=== PATIENT | female | born 1960 | race Caucasian/White ===

== ENCOUNTER → 2016-05-13 | Outpatient (CLI) | payer BC ==
[~2016-05-13] MED LIST: ADVIN25/60 INH; ALBUAER19 INH; ASPI81TA21 PO; CONJ0.3T3 PO; ESOM20CA PO; FISHOIL PO; LEVO150T PO; MINO100T; MULTTAB58 PO; SENNTAB23 PO; TRAM-10 PO
--- NOTE | 2016-05-13 16:10 | DIAGNOSTIC IMAGING REPORT ---
TWO VIEW CHEST CLINICAL HISTORY: Cough. FINDINGS: PA and lateral chest radiographs are compared to study dated 01/16/2015 and correlated with chest CT dated 09/24/2012. The heart is top normal in size. The mediastinal contour is within normal limits. Chronic interstitial thickening is unchanged. Minimal left basilar atelectasis is observed. No airspace consolidation or pleural effusion is seen. There is no pneumothorax. The skeletal structures are osteopenic. Mild degenerative change is noted throughout the thoracic spine. IMPRESSION: No active disease in the chest. Electronically signed by: Corey Washington M.D. 05/13/2016 4:09 PM Dictated Date/Time: 05/13/2016 4:08 PM
== END | disposition home or self-care (01) ==
LOC: C.RAD1850 15:41
PROVIDERS: ATTEND Internal Medicine Infectious Disease
DX: R05 Cough (principal)

== ENCOUNTER → 2016-06-27 | Outpatient (CLI) | payer BC ==
--- NOTE | 2016-06-27 15:44 | DIAGNOSTIC IMAGING REPORT ---
CHEST 2 VIEWS ROUTINE CLINICAL HISTORY: ASTHMA dyspnea COMPARISON STUDY: 05/13/2016 FINDINGS: Lungs are clear. Diaphragms smooth. Costophrenic angles are sharp. IMPRESSION: Negative chest. Electronically signed by: Devante Kimble M.D. 06/27/2016 3:42 PM Dictated Date/Time: 06/27/2016 3:42 PM
== END | disposition home or self-care (01) ==
LOC: C.RAD1850 15:25
PROVIDERS: ATTEND Physician Assistant Medical
DX: J45.909 Unspecified asthma, uncomplicated (principal)

== ENCOUNTER → 2016-10-24 | Outpatient (CLI) | payer BC ==
--- NOTE | 2016-10-25 14:37 | MAMMOGRAPHY REPORT ---
BILATERAL DIGITAL SCREENING MAMMOGRAM TOMOSYNTHESIS WITH CAD: 10/24/2016 CLINICAL HISTORY: Routine screening. TECHNIQUE: Breast tomosynthesis in addition to standard 2D mammography was performed. Current study was also evaluated with a Computer Aided Detection (CAD) system. COMPARISON: Comparison is made to exams dated: 10/20/2015 mammogram, 10/17/2014 mammogram, 10/02/2014 tanya mogram, 09/27/2013 mammogram, 09/25/2012 mammogram, and 09/19/2011 mammogram - [facility] er. BREAST COMPOSITION: There are scattered areas of fibroglandular density in both breasts. FINDINGS: A linear scar marker overlies the anterior right breast. There is stable asymmetry in the subareolar left breast. No new suspicious mass, architectural distortion or cluster of microcalcific ations is seen. IMPRESSION: ACR BI-RADS CATEGORY 1: NEGATIVE There is no mammographic evidence of malignancy. A 1 year screening mammogram is recommended. The pa tient will receive written notification of the results. Approximately 10% of breast cancers are not detected with mammography. A negative mammographic report should not delay biopsy if a clinically suggestive mass is present. Marquita Masterson M.D. ay/:10/24/2016 16:44:09 [employer] Devil: Cole DE LEON(R)(M), [facility] letter sent: Normal 1/2 BI-RADS Code: ACR BI-RADS Category 1: Negative
== END | disposition home or self-care (01) ==
LOC: C.MAMM 07:20
PROVIDERS: ATTEND Obstetrics & Gynecology
DX: Z12.31 Encounter for screening mammogram for malignant neoplasm of breast (principal)

== ENCOUNTER → 2016-12-05 | Outpatient (CLI) | payer BC ==
--- NOTE | 2016-12-05 09:32 | DIAGNOSTIC IMAGING REPORT ---
(RENAL)RETROPERITON COMP HISTORY: 55 years-old Female BILATERAL CYST, R SIDED MASS follow-up study to assess bilateral renal cysts. COMPARISON: Renal ultrasound 10/07/2014 TECHNIQUE: Multiple real-time sonographic images of the bilateral kidneys were obtained assessing grayscale appearance and color flow. FINDINGS: Right kidney measures 11.9 x 5.7 x 5.5 cm. Cyst of the inferior pole right kidney is seen, 2.9 x 2.4 x 2.0 cm, previously 2.7 x 2.5 cm. No definite renal calculi or hydronephrosis identified. Cortical medullary differentiation is preserved. No definite suspicious right-sided renal mass identified. The left kidney measures 12.3 x 5.0 x 4.5 cm. Cystic structure measuring up to 3.4 x 1.6 cm within the lower pole left kidney suggests a parenchymal cyst or renal sinus cyst, unchanged from comparison. No left-sided calculus or hydronephrosis identified. Bilateral ureteral jets are documented. Urinary bladder is unremarkable. IMPRESSION: 1. Stable exam from comparison study dated 10/07/2014 with 2.9 cm simple cyst of the inferior pole right kidney and probable renal sinus cyst of the left kidney. 2. No definite renal calculi or hydronephrosis. The above report was generated using voice recognition software. It may contain grammatical, syntax or spelling errors. Electronically signed by: Tobi Willard M.D. 12/05/2016 9:30 AM Dictated Date/Time: 12/05/2016 9:26 AM
== END | disposition home or self-care (01) ==
LOC: C.ULTR 08:41
PROVIDERS: ATTEND Family Medicine
DX: N28.1 Cyst of kidney, acquired (principal)

== ENCOUNTER → 2017-04-20 | Outpatient (CLI) | payer BC, OTHER | END | disposition home or self-care (01) | LOC: C.RDSM 08:00 | PROVIDERS: ATTEND Orthopaedic Surgery | DX: M25.512 Pain in left shoulder (principal); Z88.6 Allergy status to analgesic agent; Z91.048 Other nonmedicinal substance allergy status ==

== ENCOUNTER → 2017-10-24 | Outpatient (CLI) | payer OTHER ==
[~2017-10-24] MED LIST changes: +ASPI-319 PO; -ASPI81TA21 PO
--- NOTE | 2017-10-24 13:43 | DIAGNOSTIC IMAGING REPORT ---
(VÍCTOR/BLAD)RETROPERITON COMP CLINICAL HISTORY: 56 years-old Female presenting with RENAL CYST. TECHNIQUE: Real-time grayscale and limited color Doppler ultrasound imaging of the kidneys and bladder was performed. COMPARISON: 12/05/[address] from 03/28/2012. FINDINGS: Right kidney: Normal echogenicity of renal parenchyma. Right kidney measures 12.0 cm. No hydronephrosis. Lower pole 2.9 cm simple cyst as seen on prior CT from 2012. Left kidney: Normal echogenicity of renal parenchyma. Left kidney measures 12.7 cm. No hydronephrosis. Parapelvic 3.6 cm simple cyst as seen on prior CT from 2012. Bladder: Normal. Bilateral ureteral jets present. Other: Hyperechogenicity of hepatic parenchyma suggests hepatic steatosis.. IMPRESSION: 1. Stable renal ultrasound with benign simple cysts. No obstruction. 2. Suspected hepatic steatosis. Electronically signed by: Sreekanth Chance M.D. 10/24/2017 1:42 PM Dictated Date/Time: 10/24/2017 1:39 PM
== END | disposition home or self-care (01) ==
LOC: C.ULTR 12:38
PROVIDERS: ATTEND Family Medicine
DX: N28.1 Cyst of kidney, acquired (principal)

== ENCOUNTER → 2017-10-30 | Outpatient (CLI) | payer OTHER ==
--- NOTE | 2017-10-31 06:59 | MAMMOGRAPHY REPORT ---
BILATERAL DIGITAL SCREENING MAMMOGRAM TOMOSYNTHESIS WITH CAD: 10/30/2017 CLINICAL HISTORY: Routine screening. TECHNIQUE: The study was acquired using full field digital technology and interpreted from soft copy. Breast tomosynthesis in addition to standard 2D mammography was performed. Current study was also ev aluated with a Computer Aided Detection (CAD) system. COMPARISON: Comparison is made to exams dated: 10/24/2016 mammogram, 10/20/2015 mammogram, 10/02/2014 ma mmogram, 09/27/2013 mammogram, 09/25/2012 mammogram, and 09/19/2011 mammogram - [facility]. BREAST COMPOSITION: There are scattered areas of fibroglandular density in both breasts. FINDINGS: The parenchymal pattern is unchanged. No developing mass, architectural distortion or cluster of susp icious microcalcifications is seen in either breast. IMPRESSION: ACR BI-RADS CATEGORY 2: BENIGN There is no mammographic evidence of malignancy. A 1 year screening mammogram is recommended.( [id number]) The patient will receive written notification of the results. Some breast cancers are not detected with mammography. A negative mammographic report should not marta y biopsy if a clinically suggestive mass is present. Marquita Masterson M.D. ay/:10/30/2017 08:09:48 Support Engineer: RT Guero(Sam)(M), [facility] letter sent: Normal 1/2 BI-RADS Code: ACR BI-RADS Category 2: Benign
== END | disposition home or self-care (01) ==
LOC: C.MAMM 07:20
PROVIDERS: ATTEND Obstetrics & Gynecology
DX: Z12.31 Encounter for screening mammogram for malignant neoplasm of breast (principal)

== ENCOUNTER 2019-02-02 17:34 | Inpatient (IN) ==
[~2019-02-02 17:34] MED LIST changes: -ADVIN25/60 INH; -ALBUAER19 INH; -ASPI-319 PO; +AZITHROMYCIN 500 MG in DEXTROSE 5% 250 ML IV ONE; -CONJ0.3T3 PO; -ESOM20CA PO; -FISHOIL PO; -LEVO150T PO; -MINO100T; -MULTTAB58 PO; -SENNTAB23 PO; -TRAM-10 PO
[2019-02-02] MEDS ORDERED: ACETAMINOPHEN 1,000 MG/100 ML VIAL IV STA (18:08)
[2019-02-02] MEDS ORDERED: LEVALBUTEROL HCL 1.25 MG/3 ML NEB NEB STA ×3 (18:08→19:36)
[2019-02-02] MEDS ORDERED: SODIUM CHLORIDE 0.9% 500 ML IV ONE (18:11)
[2019-02-02 18:20] LABS: Basophils # (auto) 0.02 K/uL (0-0.2); Basophils % (auto) 0.1 %; Eosinophils # (auto) 0.01 K/uL (0-0.5); Eosinophils % (auto) 0.1 %; Hematocrit (blood only) 43.3 % (37-47); Immature Granulocytes # (auto) 0.04 K/uL (0.00-0.02); Immature Granulocytes % (auto) 0.3 %; Lymphocytes # (auto) 1.45 K/uL (1.2-3.4); Lymphocytes % (auto) 10.9 %; Mean Corpuscular Hemoglobin 28.1 pg (25-34); Mean Corpuscular Hgb Conc 32.3 g/dL (32-36); Mean Corpuscular Volume 86.9 fL (80-100); Mean Platelet Volume 10.1 fL (7.4-10.4); Monocytes # (auto) 1.09 K/uL (0.11-0.59); Monocytes % (auto) 8.2 %; Neutrophils # (auto) 10.74 K/uL (1.4-6.5); Neutrophils % (auto) 80.4 %; Platelet Count 239 K/uL (130-400); RDW Coefficient of Variation 14.6 % (11.5-14.5); RDW Standard Deviation 46.3 fL (36.4-46.3); Red Blood Count 4.98 M/uL (4.2-5.4); White Blood Count 13.35 K/uL (4.8-10.8)
--- NOTE | 2019-02-02 18:30 | XRay Report ---
SINGLE VIEW CHEST CLINICAL HISTORY: Sepsis. FINDINGS: An AP, portable, upright chest radiograph is compared to study dated 06/27/2016 and correlat ed with chest CT dated 01/11/2018. The examination is degraded by portable technique and patient rotat ion. The heart is top normal for projection. The mediastinal contour is within normal limits. There i s mild bibasilar atelectasis. No airspace consolidation or large pleural effusion is identified. No p neumothorax is seen. The skeletal structures are osteopenic. The bony thorax is grossly intact. IMPRESSION: No active disease in the chest. Electronically signed by: Corey Washington M.D. 02/02/2019 6:28 PM
[2019-02-02 18:31] LABS: INR 1.2 (0.9-1.1); Partial Thromboplastin Ratio 1.2; Prothrombin Time 11.8 Seconds (9.0-12.0)
[2019-02-02 18:37] LABS: Alanine Aminotransferase 25 U/L (12-78); Albumin Level 3.4 gm/dl (3.4-5.0); Aspartate Aminotransferase 14 U/L (15-37); BUN Creatinine Ratio 12.4 (10-20); Blood Urea Nitrogen 8 mg/dl (7-18); Calcium 8.9 mg/dl (8.5-10.1); Carbon Dioxide 26 mmol/L (21-32); Chloride 103 mmol/L (98-107); Creatinine Clr Calc Pharmacy 108.1 ml/min; Est GFR (African American) 110.7; Est GFR (Non-African American) 95.5; Glucose 102 mg/dl (70-99); Potassium 3.6 mmol/L (3.5-5.1); Sodium 135 mmol/L (136-145)
[2019-02-02 18:42] LABS: Albumin Globulin Ratio 0.8 (0.9-2); Alkaline Phosphatase 107 U/L (45-117); Creatine Kinase 44 U/L (26-192); Creatine Kinase MB < 1.0 ng/ml (0.5-3.6); Globulin 4.5 gm/dl (2.5-4.0); Total Protein 7.9 gm/dl (6.4-8.2); Troponin I < 0.015 ng/ml (0-0.045)
--- NOTE | 2019-02-02 19:11 | Emergency Department Note ---
Entered by Diamond Bourgeois acting as a scribe for Carlton Gee MD History of Present Illness General Chief complaint: Illness Stated complaint: ASTHMA, COUGH, NAUSEA, FEVER, HEAD AND NECK PAIN Time Seen by Provider: 02/02/19 17:52 Source: patient Limitations: no limitations History of Present Illness Onset (ago): week(s) 3 Location: head Pain Consistency: + other (persistent) Maximum Pain Intensity: 5 Quality: + other (worsening) Associated symptoms: + chest pain, + cough, + fever/chills and + headaches Treatments prior to arrival: none The patient is a 58 year old female who presents to the Emergency Room with complaints of a persistent illness that began 3 weeks ago. She reports that she had an asthma exacerbation 3 weeks ago, and she has had a persistent cough since then. The patient notes that she used a nebulizer, and it provided some relief. She complains of a persistent sore throat and a fever that began yesterday. The patient notes that she had nausea and a near-syncopal episode yesterday afternoon, stating that these symptoms are now resolved. She complains of a headache and neck pain that began a few days ago, noting that the neck pain has worsened. The patient complains of chest pain. She denies any abdominal pain. The patient denies any treatments [employer]. She notes a history of A-fib, and she states that she takes a low dose Aspirin daily. Home Medications Home Medications Medication Instructions Recorded Confirmed Type omega [id number] oil [Fish Oil] 1 cap PO DAILY 02/22/18 02/02/19 History albuterol sulfate 2.5 mg/3 mL 0 mg INHALATION DIRECTED #1 ml 12/14/18 02/02/19 History (0.083 %) solution for nebulization cholecalciferol (vitamin D3) 2,000 2,000 unit PO DAILY tab 12/14/18 02/02/19 History unit tablet clobetasol 0.05 % topical cream 1 applic TOPICAL DIRECTED #3 gm 12/14/18 02/02/19 History docusate sodium 100 mg capsule 100 mg PO DAILY PRN cap 12/14/18 02/02/19 History levothyroxine 175 mcg tablet 175 mcg PO DAILY tab 12/14/18 02/02/19 History omeprazole magnesium 20 mg 40 mg PO BID tab 12/19/18 02/02/19 History tablet,delayed release albuterol sulfate 90 mcg/actuation 2 puff INHALATION Q4H PRN #54 gm 12/24/18 02/02/19 Rx aerosol inhaler aspirin [Aspirin Low Dose] 162 mg PO DAILY 02/02/19 02/02/19 History Allergies Allergy/AdvReac Type Severity Reaction Status Date / Time codeine Allergy Mild SEVERE Verified 02/02/19 18:12 STOMACH PAIN, COLD AND CLAMMY. adhesive Allergy Unknown rash Verified 02/02/19 18:12 chlorhexidine AdvReac Intermediate ITCHING Verified 02/02/19 18:12 AND BURNING AT SITE OF USE aspirin AdvReac Mild too much Verified 02/02/19 18:12 aspirin causes stomach bleed NSAIDS (Non-Steroidal AdvReac Unknown gastric Verified 02/02/19 18:12 Anti-Inflamma bleeding Past Med/Surg History Medical History (Updated 02/05/19 @ 00:37 by Carlton Gee MD) Afib (Acute) Asthma (Acute) Endometriosis Enlarged thoracic aorta (Acute) GERD (gastroesophageal reflux disease) Hypothyroid (Acute) IBS (irritable bowel syndrome) (Acute) Lichen planus Lichen sclerosus Rosacea conjunctivitis Vertigo Surgical History History of breast biopsy (Acute) History of cholecystectomy (Acute) History of foot surgery (Acute) History of hysterectomy (Acute) History of laparoscopy (Acute) Family History Grandfather (Maternal) Colorectal cancer Sister Colorectal cancer Social History Preferred Language: Algerian Communication Ability: Effective Custom Designer Required: No Beliefs That Will Affect Care: None Current Living Situation: Spouse Feels Safe at Home: Yes Smoking Status: Never smoker Second Hand Exposure: No ; Hx Alcohol Use: No Hx Substance Use: No Review of Systems See HPI for pertinent positives & negatives. and A total of 10 systems reviewed and were otherwise negative Physical Exam Vital Signs Vital Signs - 24 hr 02/02/19 17:36 02/02/19 18:29 02/02/19 18:41 Temperature 37.7 C H Temperature Source Oral Pulse Rate 114 H Pulse Rate [Right Finger] 78 Respiratory Rate 20 20 Respiratory Effort / Characteristics Spontaneous Grunting Moaning Splinting (from pain) Blood Pressure 122/82 Blood Pressure [Right Arm] Blood Pressure Mean 95 Blood Pressure Mean [Right Arm] Pulse Oximetry 93 88 L 95 Oxygen Delivery Method Room Air Room Air Nasal Cannula Oxygen Flow Rate 2 Sepsis Recent Fever Within 48 Hours No Sepsis New/Unexplained Change in Mental Status No Sepsis Action Taken by Nursing No Action Required 02/02/19 19:20 02/02/19 19:40 Temperature Temperature Source Pulse Rate Pulse Rate [Right Finger] 93 H 89 Respiratory Rate 21 18 Respiratory Effort / Characteristics Non-Labored Spontaneous Blood Pressure Blood Pressure [Right Arm] 139/97 Blood Pressure Mean Blood Pressure Mean [Right Arm] 111 Pulse Oximetry 91 95 Oxygen Delivery Method Room Air Nasal Cannula Oxygen Flow Rate 2 Sepsis Recent Fever Within 48 Hours Sepsis New/Unexplained Change in Mental Status Sepsis Action Taken by Nursing GENERAL: Awake, alert, well-appearing, in no acute distress HENT: Normocephalic, atraumatic. Oropharynx unremarkable. No evidence of encephalitis or meningitis. EYES: Normal conjunctiva. Sclera non-icteric. NECK: Supple. No nuchal rigidity. FROM. No JVD. RESPIRATORY: Wheezing bilaterally. CARDIAC: Regular rate, normal rhythm. Extremities warm and well perfused. Pulses equal. ABDOMEN: Soft, non-distended. No tenderness to palpation. No rebound or guarding. No masses. RECTAL: Deferred. MUSCULOSKELETAL: Chest examination reveals no tenderness. The back is symmetrical on inspection without obvious abnormality. There is no CVA tenderness to palpation. No joint edema. LOWER EXTREMITIES: Calves are equal size bilaterally and non-tender. No edema. No discoloration. NEURO: Normal sensorium. No sensory or motor deficits noted. SKIN: No rash or jaundice noted. Course Course 1802: The patient was evaluated in room A04. A complete history and physical exam was performed. 1934: I reevaluated the patient. Administered Medications Acetaminophen (Tylenol) 650 mg PO Q4H PRN PRN Reason: pain/fever Stop: 03/04/19 23:45 Last Admin: 02/04/19 15:53 Dose: 650 mg Documented by: [id number] Admin: 02/03/19 08:55 Dose: 650 mg Documented by: [id number] Albuterol (Duoneb) 3 ml NEB QIDR [place] Stop: 03/06/19 20:59 Last Admin: 02/04/19 21:16 Dose: Not Given Documented by: [id number] Aspirin (Ecotrin Ectab) 162 mg PO DAILY [place] Stop: 03/05/19 08:59 Last Admin: 02/03/19 19:57 Dose: 162 mg Documented by: [id number] Admin: 02/03/19 08:48 Dose: 162 mg Documented by: [id number] Benzonatate (Tessalon Perle) 100 mg PO TID [place] Stop: 03/05/19 08:59 Last Admin: 02/04/19 20:54 Dose: 100 mg Documented by: [id number] Admin: 02/04/19 15:10 Dose: 100 mg Documented by: [id number] Admin: 02/04/19 08:29 Dose: 100 mg Documented by: [id number] Admin: 02/03/19 19:58 Dose: 100 mg Documented by: [id number] Admin: 02/03/19 14:19 Dose: 100 mg Documented by: [id number] Admin: 02/03/19 08:46 Dose: 100 mg Documented by: [id number] Docusate Sodium (Colace) 100 mg PO HS [place] Stop: 03/06/19 20:59 Last Admin: 02/04/19 20:54 Dose: 100 mg Documented by: [id number] Enoxaparin Sodium (Lovenox) 40 mg SQ Q24H [place] Stop: 03/04/19 23:45 Last Admin: 02/04/19 23:42 Dose: 40 mg Documented by: [id number] Admin: 02/03/19 19:58 Dose: 40 mg Documented by: [id number] Admin: 02/03/19 00:48 Dose: 40 mg Documented by: [id number] Miscellaneous (Order Awaiting Action) 1 ea N/A QS [place] Stop: 03/05/19 07:59 Last Admin: 02/04/19 23:24 Dose: Not Given Documented by: [id number] Admin: 02/04/19 16:07 Dose: Not Given Documented by: [id number] Admin: 02/04/19 08:30 Dose: Not Given Documented by: [id number] Admin: 02/04/19 01:11 Dose: Not Given Documented by: [id number] Admin: 02/03/19 16:40 Dose: Not Given Documented by: [id number] Admin: 02/03/19 08:48 Dose: Not Given Documented by: [id number] Pantoprazole Sodium (Protonix) 40 mg PO BID [place] Stop: 03/05/19 08:59 Last Admin: 02/04/19 20:54 Dose: 40 mg Documented by: [id number] Admin: 02/04/19 08:30 Dose: 40 mg Documented by: [id number] Admin: 02/03/19 19:58 Dose: 40 mg Documented by: [id number] Admin: 02/03/19 08:46 Dose: 40 mg Documented by: [id number] Prednisone (Prednisone) 40 mg PO QAM [place] Stop: 03/06/19 08:59 Last Admin: 02/04/19 08:32 Dose: 40 mg Documented by: [id number] Fluticasone/Salmeterol (Advair Diskus 250/50) 1 puffs INH BID [place] Stop: 03/05/19 08:59 Last Admin: 02/04/19 20:54 Dose: 1 puffs Documented by: [id number] Admin: 02/04/19 08:28 Dose: 1 puffs Documented by: [id number] Admin: 02/03/19 19:58 Dose: 1 puffs Documented by: [id number] Admin: 02/03/19 08:48 Dose: 1 puffs Documented by: [id number] Discontinued Medications Al Hydrox/Mg Hydrox/Simethicone () 1 dose PO ONE ONE Stop: 02/02/19 21:21 Last Admin: 02/02/19 21:28 Dose: 1 dose Documented by: [id number] Albuterol (Duoneb) 3 ml NEB Q6R [place] Stop: 03/05/19 00:59 Last Admin: 02/04/19 19:24 Dose: 3 ml Documented by: [id number] Admin: 02/04/19 13:49 Dose: 3 ml Documented by: [id number] Admin: 02/04/19 07:32 Dose: 3 ml Documented by: [id number] Admin: 02/04/19 01:32 Dose: Not Given Documented by: [id number] Admin: 02/03/19 19:08 Dose: 3 ml Documented by: [id number] Admin: 02/03/19 13:14 Dose: Not Given Documented by: [id number] Admin: 02/03/19 07:12 Dose: 3 ml Documented by: [id number] Admin: 02/03/19 00:51 Dose: 3 ml Documented by: [id number] Diphenhydramine HCl (Benadryl) 25 mg IV NOW STA Stop: 02/04/19 01:37 Last Admin: 02/04/19 01:48 Dose: 25 mg Documented by: [id number] Famotidine (Pepcid) 20 mg PO NOW ONE Stop: 02/02/19 21:21 Last Admin: 02/02/19 21:28 Dose: 20 mg Documented by: [id number] Acetaminophen (Ofirmev) 1,000 mg in 100 mls @ 400 mls/hr IV NOW STA Stop: 02/02/19 18:22 Last Infusion: 02/02/19 18:46 Dose: 0 mls/hr Documented by: [id number] Admin: 02/02/19 18:20 Dose: 400 mls/hr Documented by: [id number] Sodium Chloride (Nss) 500 mls @ 999 mls/hr IV .Q31M ONE Stop: 02/02/19 18:41 Last Infusion: 02/02/19 19:11 Dose: 0 mls/hr Documented by: [id number] Admin: 02/02/19 18:20 Dose: 999 mls/hr Documented by: [id number] Piperacillin Sod/Tazobactam Sod (Zosyn) 4.5 gm in 120 mls @ 240 mls/hr IV NOW ONE Stop: 02/02/19 20:34 Last Infusion: 02/02/19 21:13 Dose: 0 mls/hr Documented by: [id number] Admin: 02/02/19 20:39 Dose: 240 mls/hr Documented by: [id number] Magnesium Sulfate/Dextrose (Magnesium Sulfate / D5w) 1 gm in 100 mls @ 100 mls/hr IV ONE ONE Stop: 02/02/19 21:50 Last Infusion: 02/02/19 22:13 Dose: 0 mls/hr Documented by: [id number] Admin: 02/02/19 21:13 Dose: 100 mls/hr Documented by: [id number] Azithromycin 500 mg/ Dextrose 255 mls @ 125 mls/hr IV ONE ONE Stop: 02/02/19 02:17 Last Infusion: 02/03/19 03:35 Dose: 0 mls/hr Documented by: [id number] Admin: 02/03/19 00:48 Dose: 125 mls/hr Documented by: [id number] Ceftriaxone Sodium 2,000 mg/ (Dextrose) 70 mls @ 100 mls/hr IV Q24H [place]; Protocol Stop: 02/10/19 03:59 Last Infusion: 02/04/19 04:59 Dose: 0 mls/hr Documented by: [id number] Admin: 02/04/19 03:30 Dose: 100 mls/hr Documented by: [id number] Infusion: 02/03/19 05:09 Dose: 0 mls/hr Documented by: [id number] Admin: 02/03/19 03:59 Dose: 100 mls/hr Documented by: [id number] Azithromycin 250 mg/ Dextrose 252.5 mls @ 125 mls/hr IV Q24H [facility] Stop: 02/11/19 00:00 Last Infusion: 02/04/19 03:45 Dose: 0 mls/hr Documented by: [id number] Admin: 02/04/19 01:09 Dose: 125 mls/hr Documented by: [id number] Methylprednisolone 40 mg/ (Syringe) 0.64 mls @ 1.5 mls/min IV Q8H [facility] Stop: 03/05/19 03:59 Last Admin: 02/04/19 03:17 Dose: Not Given Documented by: [id number] Admin: 02/03/19 19:58 Dose: 1.5 mls/min Documented by: [id number] Admin: 02/03/19 12:20 Dose: 1.5 mls/min Documented by: [id number] Admin: 02/03/19 03:59 Dose: 1.5 mls/min Documented by: [id number] Ketorolac Tromethamine (Toradol) 10 mg IV NOW ONE Stop: 02/03/19 11:47 Last Admin: 02/03/19 12:18 Dose: 10 mg Documented by: [id number] Levalbuterol HCl (Xopenex 1.25mg/3ml Neb) 1.25 mg NEB NOW STA Stop: 02/02/19 18:09 Last Admin: 02/02/19 18:27 Dose: 1.25 mg Documented by: [id number] Levalbuterol HCl (Xopenex 1.25mg/3ml Neb) 1.25 mg NEB NOW STA Stop: 02/02/19 19:12 Last Admin: 02/02/19 19:37 Dose: 1.25 mg Documented by: [id number] Levalbuterol HCl (Xopenex 1.25mg/3ml Neb) 1.25 mg NEB NOW STA Stop: 02/02/19 19:37 Last Admin: 02/02/19 20:01 Dose: 1.25 mg Documented by: [id number] Levothyroxine Sodium (Synthroid) 175 mcg PO DAILYBB [place] Stop: 03/05/19 06:29 Last Admin: 02/03/19 04:00 Dose: 175 mcg Documented by: [id number] Levothyroxine Sodium (Synthroid) 125 mcg PO DAILYBB [place] Stop: 03/06/19 06:29 Last Admin: 02/04/19 06:33 Dose: 125 mcg Documented by: [id number] Methylprednisolone (Solumedrol) 125 mg IV NOW STA Stop: 02/02/19 19:32 Last Admin: 02/02/19 20:39 Dose: 125 mg Documented by: [id number] Polyethylene Glycol (Miralax Powder Packet) 17 gm PO NOW STA Stop: 02/04/19 16:49 Last Admin: 02/04/19 17:06 Dose: 17 gm Documented by: [id number] Sucralfate (Carafate Tab) 1 gm PO NOW STA Stop: 02/02/19 21:21 Last Admin: 02/02/19 21:28 Dose: 1 gm Documented by: [id number] Medical Decision Making Differential Diagnosis Etiologies such as viral syndrome, otitis, pharyngitis, pneumonia, influenza, meningitis, urinary tract infection, septic arthritis, soft tissue infectious process, intra-abdominal process, sepsis, bacteremia, as well as others were entertained. Medical Records Attestation: I reviewed the patient's medical records. Home Medications Current Medication List: was personally reviewed by me Laboratory Data Attestation: I reviewed the patient's lab results. Result diagrams: 02/04/19 05:39 02/04/19 05:39 Lab Results 02/02/19 02/02/19 02/02/19 Range/Units 18:05 18:05 18:05 WBC 13.35 H (4.8-10.8) K/uL RBC 4.98 (4.2-5.4) M/uL Hgb 14.0 (12.0-16.0) g/dL Hct 43.3 (37-47) % MCV 86.9 (80-100) fL MCH 28.1 (25-34) pg MCHC 32.3 (32-36) g/dL RDW Std Deviation 46.3 (36.4-46.3) fL RDW Coeff of Lilia 14.6 H (11.5-14.5) % Plt Count 239 (130-400) K/uL MPV 10.1 (7.4-10.4) fL Immature Gran % (Auto) 0.3 % Neut % (Auto) 80.4 % Lymph % (Auto) 10.9 % [place] % (Auto) 8.2 % Eos % (Auto) 0.1 % Baso % (Auto) 0.1 % Immature Gran # (Auto) 0.04 H (0.00-0.02) K/uL Neut # (Auto) 10.74 H (1.4-6.5) K/uL Lymph # (Auto) 1.45 (1.2-3.4) K/uL [place] # (Auto) 1.09 H (0.11-0.59) K/uL Eos # (Auto) 0.01 (0-0.5) K/uL Baso # (Auto) 0.02 (0-0.2) K/uL PT 11.8 (9.0-12.0) Seconds INR 1.2 H (0.9-1.1) APTT 33.0 H (21.0-31.0) Seconds PTT Ratio 1.2 Sodium 135 L (136-145) mmol/L Potassium 3.6 (3.5-5.1) mmol/L Chloride 103 (98-107) mmol/L Carbon Dioxide 26 (21-32) mmol/L Anion Gap 6.0 (3-11) BUN 8 (7-18) mg/dl Creatinine 0.67 (0.6-1.2) mg/dl Est Cr Clr Drug Dosing 108.1 ml/min Est GFR ( Amer) 110.7 Est GFR (Non-Af Amer) 95.5 BUN/Creatinine Ratio 12.4 (10-20) Glucose 102 H (70-99) mg/dl POC Lactic Acid Mynor (0.90-1.70) mmol/L Lactate (0.4-2.0) mmol/L Calcium 8.9 (8.5-10.1) mg/dl Phosphorus 2.9 (2.5-4.9) mg/dl Magnesium 2.0 (1.8-2.4) mg/dl Total Bilirubin 1.0 (0.2-1) mg/dl AST 14 L (15-37) U/L ALT 25 (12-78) U/L Alkaline Phosphatase 107 (45-117) U/L Total Creatine Kinase 44 (26-192) U/L CK-MB (CK-2) < 1.0 (0.5-3.6) ng/ml CK/CKMB % Calc TNP Troponin I < 0.015 (0-0.045) ng/ml Total Protein 7.9 (6.4-8.2) gm/dl Albumin 3.4 (3.4-5.0) gm/dl Globulin 4.5 H (2.5-4.0) gm/dl Albumin/Globulin Ratio 0.8 L (0.9-2) Monoscreen (Negative) Influenza Type A (PCR) (Neg) Influenza Type B (PCR) (Neg) 02/02/19 02/02/19 02/02/19 Range/Units 18:10 18:54 18:54 WBC (4.8-10.8) K/uL RBC (4.2-5.4) M/uL Hgb (12.0-16.0) g/dL Hct (37-47) % MCV (80-100) fL MCH (25-34) pg MCHC (32-36) g/dL RDW Std Deviation (36.4-46.3) fL RDW Coeff of Lilia (11.5-14.5) % Plt Count (130-400) K/uL MPV (7.4-10.4) fL Immature Gran % (Auto) % Neut % (Auto) % Lymph % (Auto) % [place] % (Auto) % Eos % (Auto) % Baso % (Auto) % Immature Gran # (Auto) (0.00-0.02) K/uL Neut # (Auto) (1.4-6.5) K/uL Lymph # (Auto) (1.2-3.4) K/uL [place] # (Auto) (0.11-0.59) K/uL Eos # (Auto) (0-0.5) K/uL Baso # (Auto) (0-0.2) K/uL PT (9.0-12.0) Seconds INR (0.9-1.1) APTT (21.0-31.0) Seconds PTT Ratio Sodium (136-145) mmol/L Potassium (3.5-5.1) mmol/L Chloride (98-107) mmol/L Carbon Dioxide (21-32) mmol/L Anion Gap (3-11) BUN (7-18) mg/dl Creatinine (0.6-1.2) mg/dl Est Cr Clr Drug Dosing ml/min Est GFR ( Amer) Est GFR (Non-Af Amer) BUN/Creatinine Ratio (10-20) Glucose (70-99) mg/dl POC Lactic Acid Mynor 0.73 L (0.90-1.70) mmol/L Lactate 0.8 (0.4-2.0) mmol/L Calcium (8.5-10.1) mg/dl Phosphorus (2.5-4.9) mg/dl Magnesium (1.8-2.4) mg/dl Total Bilirubin (0.2-1) mg/dl AST (15-37) U/L ALT (12-78) U/L Alkaline Phosphatase (45-117) U/L Total Creatine Kinase (26-192) U/L CK-MB (CK-2) (0.5-3.6) ng/ml CK/CKMB % Calc Troponin I (0-0.045) ng/ml Total Protein (6.4-8.2) gm/dl Albumin (3.4-5.0) gm/dl Globulin (2.5-4.0) gm/dl Albumin/Globulin Ratio (0.9-2) Monoscreen Negative (Negative) Influenza Type A (PCR) (Neg) Influenza Type B (PCR) (Neg) 02/02/19 Range/Units 19:26 WBC (4.8-10.8) K/uL RBC (4.2-5.4) M/uL Hgb (12.0-16.0) g/dL Hct (37-47) % MCV (80-100) fL MCH (25-34) pg MCHC (32-36) g/dL RDW Std Deviation (36.4-46.3) fL RDW Coeff of Lilia (11.5-14.5) % Plt Count (130-400) K/uL MPV (7.4-10.4) fL Immature Gran % (Auto) % Neut % (Auto) % Lymph % (Auto) % [place] % (Auto) % Eos % (Auto) % Baso % (Auto) % Immature Gran # (Auto) (0.00-0.02) K/uL Neut # (Auto) (1.4-6.5) K/uL Lymph # (Auto) (1.2-3.4) K/uL [place] # (Auto) (0.11-0.59) K/uL Eos # (Auto) (0-0.5) K/uL Baso # (Auto) (0-0.2) K/uL PT (9.0-12.0) Seconds INR (0.9-1.1) APTT (21.0-31.0) Seconds PTT Ratio Sodium (136-145) mmol/L Potassium (3.5-5.1) mmol/L Chloride (98-107) mmol/L Carbon Dioxide (21-32) mmol/L Anion Gap (3-11) BUN (7-18) mg/dl Creatinine (0.6-1.2) mg/dl Est Cr Clr Drug Dosing ml/min Est GFR ( Amer) Est GFR (Non-Af Amer) BUN/Creatinine Ratio (10-20) Glucose (70-99) mg/dl POC Lactic Acid Mynor (0.90-1.70) mmol/L Lactate (0.4-2.0) mmol/L Calcium (8.5-10.1) mg/dl Phosphorus (2.5-4.9) mg/dl Magnesium (1.8-2.4) mg/dl Total Bilirubin (0.2-1) mg/dl AST (15-37) U/L ALT (12-78) U/L Alkaline Phosphatase (45-117) U/L Total Creatine Kinase (26-192) U/L CK-MB (CK-2) (0.5-3.6) ng/ml CK/CKMB % Calc Troponin I (0-0.045) ng/ml Total Protein (6.4-8.2) gm/dl Albumin (3.4-5.0) gm/dl Globulin (2.5-4.0) gm/dl Albumin/Globulin Ratio (0.9-2) Monoscreen (Negative) Influenza Type A (PCR) Neg for Influ A (Neg) Influenza Type B (PCR) Neg for Influ B (Neg) Imaging Data Radiologist's Impression: Radiology results as stated below per my review and the radiologist's interpretation: SINGLE VIEW CHEST CLINICAL HISTORY: Sepsis. FINDINGS: An AP, portable, upright chest radiograph is compared to study dated 06/27/2016 and correlated with chest CT dated 01/11/2018. The examination is degraded by portable technique and patient rotation. The heart is top normal for projection. The mediastinal contour is within normal limits. There is mild bibasilar atelectasis. No airspace consolidation or large pleural effusion is identified. No pneumothorax is seen. The skeletal structures are osteopenic. The bony thorax is grossly intact. IMPRESSION: No active disease in the chest. Electronically signed by: Corey Washington M.D. 02/02/2019 6:28 PM ECG Data Attestation: I personally reviewed and interpreted this ECG as follows: Indication: + chest pain Rate (beats per minute): 94 Rhythm: + normal sinus ECG ST segments: no ST depression and no ST elevation ECG Findings: + Other (QTC is 440) Blood Pressure Blood Pressure Findings: Elevated blood pressure Blood Pressure Disposition: elevated BP felt to be situational MDM Narrative This is a 58-year-old female who presents emergency department complaining of not feeling well. The patient was given an hour-long breathing treatment here i n the emergency department started on magnesium. She does have an elevation in her white blood cell count. I did discuss the case with the hospitalist service as the patient is still not feeling well. She was started on IV Zosyn as well as Solu-Medrol. Patient family were in agreement with the treatment plan. Impression & Plan Asthma, Headache Discharge Plan Visit Data *Final* Discharge Date/Time: 02/02/19 23:14 Chief Complaint: Illness Stated Complaint: ASTHMA, COUGH, NAUSEA, FEVER, HEAD AND NECK PAIN ED Provider: Carlton Gee Discharge Problem: Asthma, Headache Patient Disposition: Admitted As Inpatient Discharge Instructions Interventions: ED Discharge Assessment Last Done: 02/02/19 23:14 Discharge Problem: Asthma Qualifiers: Asthma severity: unspecified severity Asthma persistence: unspecified Asthma complication type: unspecified Qualified Code(s): J45.909 - Unspecified asthma, uncomplicated Headache Qualifiers: Headache type: unspecified Headache chronicity pattern: unspecified pattern Intractability: not intractable Qualified Code(s): R51 - Headache The scribe's documentation has been prepared under my direction and personally reviewed by me in its entirety. I confirm that the note above accurately reflects all work, treatment, procedures, and medical decision making performed by me.
[2019-02-02] MEDS ORDERED: methylPREDNISolone 125 MG/2 ML VIAL IV STA (19:31)
[2019-02-02] MEDS ORDERED: PIPERACILL/TAZOBAC CONSULT ACTIVE PRN (20:05)
[2019-02-02] MEDS ORDERED: PIPERACILLIN/TAZOBACTAM 4.5 GM/120 ML BAG IV ONE (20:05)
[2019-02-02 20:08] LABS: Influenza A virus by PCR Neg for Influ A (Neg); Influenza B virus by PCR Neg for Influ B (Neg)
[2019-02-02] MEDS ORDERED: MAGNESIUM SULFATE / D5W 1 GM/100 ML BAG IV ONE (20:51)
[2019-02-02] MEDS ORDERED: GI COCKTAIL ED USE PO ONE (21:20)
[2019-02-02] MEDS ORDERED: SUCRALFATE 1 GM TAB PO STA (21:20)
[2019-02-02] MEDS ORDERED: FAMOTIDINE 20 MG TAB PO ONE (21:20)
--- NOTE | 2019-02-02 23:05 | History & Physical Report ---
Date of Service February 02, 2019 Assessment & Plan (1) Pneumonia: Suspected pneumonia. Patient with 3 weeks of URI symptoms with newly developed fever, leukocytosis. Chest x-ray with no infiltrates pulmonary exam with bibasilar crackles. Patient currently afebrile, hemodynamically stable, she is requiring a small amount of oxygen to maintain saturations above 94%. + Sick contacts -Admit to medical floor -Follow cultures -Check urine Legionella -We will cover with ceftriaxone and azithromycin for presumed community acquired pneumonia -Tessalon 3 times daily for cough -Tylenol as needed for pain or fever Present on Admission?: Yes (2) Asthma: Patient with long-standing history of asthma, fairly well controlled outside of setting of illness. She reports worsening shortness of breath, cough and wheeze over the last 3 weeks. She has been taking her Advair as well as Spiriva and albuterol with minimal improvement. Presently on exam she has good air movement bilaterally with no wheezing. She had PFTs performed on 12/19/2018 which was suggestive of mild obstructive pattern. Mild yet and significant improvement in pulmonary function following bronchodilator administration. FEV1/FVC =71%. Possibly component of COPD as well Continue Advair Albuterol neb every 2 hours as needed -DuoNeb every 4 hours Solu-Medrol 40 mg IV 3 times daily Incentive spirometry Treatment of pneumonia as above Present on Admission?: Yes (3) Afib: Patient with remote history of paroxysmal A. fib. Presently normal sinus rhythm Continue to monitor Present on Admission?: Yes (4) Hypothyroid: Chronic. Stable. Continue Synthroid Present on Admission?: Yes (5) GERD (gastroesophageal reflux disease): Chronic. Stable. Continue omeprazole F/E/N - Hep-Lock. Monitor electrolytes and replete as needed. Regular diet as tolerated ProphylaxisLovenox for DVT prophylaxis Codefull Dispositionadmit to medical floor Present on Admission?: Yes History of Present Illness Chief Complaint: Shortness of breath Primary Care Provider: Teddy Tsai DO Shanti Hargrove is a 58-year-old female with history of asthma, GERD, A. fib presenting with shortness of breath, suspected pneumonia. She reports that she has been having URI symptoms for the last 3 weeks to include cough, congestion, sore throat as well as increase in her asthma symptoms/shortness of breath/wheeze. She missed work on Monday as well as Monday due to her illness. She has been taking her Advair as prescribed as well as her recently prescribed Spiriva and has been using her albuterol inhaler at least 2 times a day. Her symptoms persisted. She had to leave work early yesterday. Yesterday she also developed nausea and fever to 100.9. This afternoon she had worsening palpitations. On arrival to the ER she is found to be afebrile, tachycardic to 114 otherwise hemodynamically stable. Saturating 88% on room air which improved with 2 L of nasal cannula to 95%. Patient complaining of shortness of breath although feels it is slightly improved from before. ER course: Tylenol, Maalox, Pepcid, Xopenex, magnesium, Solu-Medrol, Zosyn, sucralfate Allergies Allergy/AdvReac Type Severity Reaction Status Date / Time codeine Allergy Mild SEVERE Verified 02/02/19 18:12 STOMACH PAIN, COLD AND CLAMMY. adhesive Allergy Unknown rash Verified 02/02/19 18:12 chlorhexidine AdvReac Intermediate ITCHING Verified 02/02/19 18:12 AND BURNING AT SITE OF USE aspirin AdvReac Mild too much Verified 02/02/19 18:12 aspirin causes stomach bleed NSAIDS (Non-Steroidal AdvReac Unknown gastric Verified 02/02/19 18:12 Anti-Inflamma bleeding most pain medication AdvReac Unknown Uncoded 02/02/19 18:12 Home Medications Home Medications Medication Instructions Recorded Confirmed Type omega 4-[id number]-fish oil [Fish Oil] 1 cap PO DAILY 02/22/18 02/02/19 History albuterol sulfate 2.5 mg/3 mL 0 mg INHALATION DIRECTED #1 ml 12/14/18 02/02/19 History (0.083 %) solution for nebulization cholecalciferol (vitamin D3) 2,000 2,000 unit PO DAILY tab 12/14/18 02/02/19 History unit tablet clobetasol 0.05 % topical cream 1 applic TOPICAL DIRECTED #3 gm 12/14/18 02/02/19 History docusate sodium 100 mg capsule 100 mg PO DAILY PRN cap 12/14/18 02/02/19 History levothyroxine 175 mcg tablet 175 mcg PO DAILY tab 12/14/18 02/02/19 History omeprazole magnesium 20 mg 40 mg PO BID tab 12/19/18 02/02/19 History tablet,delayed release albuterol sulfate 90 mcg/actuation 2 puff INHALATION Q4H PRN #54 gm 12/24/18 02/02/19 Rx aerosol inhaler aspirin [Aspirin Low Dose] 162 mg PO DAILY 02/02/19 02/02/19 History Past Med/Surg History Medical History Acid reflux disease (Acute) Afib (Acute) Asthma (Acute) Endometriosis Enlarged thoracic aorta (Acute) Hypothyroid (Acute) IBS (irritable bowel syndrome) (Acute) Surgical History History of breast biopsy (Acute) History of cholecystectomy (Acute) History of foot surgery (Acute) History of hysterectomy (Acute) History of laparoscopy (Acute) Family History Grandfather (Maternal) Colorectal cancer Sister Colorectal cancer Social History Preferred Language: Yi Communication Ability: Effective Retread Supervisor Required: No Beliefs That Will Affect Care: None Current Living Situation: Spouse Feels Safe at Home: Yes Smoking Status: Never smoker Second Hand Exposure: No ; Hx Alcohol Use: Yes Hx Substance Use: No Review of Systems Review of Systems: All systems reviewed & are unremarkable except as noted in HPI & below + Left-sided abdominal pain + Sore throat + Muscle pains, body aches + Fatigue + Cough productive for clear sputum Physical Exam Physical Exam: General: patient resting comfortably, NAD, ill in appearance, AA&O x 4 Skin: warm, dry, intact, no rashes or lesions HEENT: NC/AT, PERRL, EOMI, anicteric sclera, conjunctiva without injection, external ear normal to inspection and nontender, nares patent, moist mucus membranes, dentition intact, +erythematous posterior pharynx, neck supple, trachea midline, no LAD, no thyromegaly, no JVD Heart: +S1/S2, regular, no m/r/g Lungs: equal air entry bilaterally,+crackles in bilateral bases Abd: +BS, soft, NT/ND, no masses/organomegaly/ascites Ext: warm, 2+ pulses in UE/LE bilaterally, no clubbing/cyanosis or edema Neuro: nonfocal, patient AA&O x 4, speech intact, no facial droop, moving all extremities on command with equal strength 5/5 Results & Data Vital Signs (Past 12 Hours) Vital Signs Temp Pulse Pulse Resp BP BP Pulse Ox 02/02/19 22:00 82 20 115/66 94 02/02/19 20:46 36.4 C L 02/02/19 20:43 98 H 23 119/88 95 02/02/19 20:00 95 H 18 95 02/02/19 19:40 89 18 95 02/02/19 19:20 93 H 21 139/97 91 02/02/19 18:41 95 02/02/19 18:29 78 20 88 L 02/02/19 17:36 37.7 C H 114 H 20 122/82 93 Laboratory Results Lab Results 02/02/19 02/02/19 02/02/19 Range/Units 18:05 18:05 18:05 WBC 13.35 H (4.8-10.8) K/uL RBC 4.98 (4.2-5.4) M/uL Hgb 14.0 (12.0-16.0) g/dL Hct 43.3 (37-47) % MCV 86.9 (80-100) fL MCH 28.1 (25-34) pg MCHC 32.3 (32-36) g/dL RDW Std Deviation 46.3 (36.4-46.3) fL RDW Coeff of Lilia 14.6 H (11.5-14.5) % Plt Count 239 (130-400) K/uL MPV 10.1 (7.4-10.4) fL Immature Gran % (Auto) 0.3 % Neut % (Auto) 80.4 % Lymph % (Auto) 10.9 % Talbot % (Auto) 8.2 % Eos % (Auto) 0.1 % Baso % (Auto) 0.1 % Immature Gran # (Auto) 0.04 H (0.00-0.02) K/uL Neut # (Auto) 10.74 H (1.4-6.5) K/uL Lymph # (Auto) 1.45 (1.2-3.4) K/uL Talbot # (Auto) 1.09 H (0.11-0.59) K/uL Eos # (Auto) 0.01 (0-0.5) K/uL Baso # (Auto) 0.02 (0-0.2) K/uL PT 11.8 (9.0-12.0) Seconds INR 1.2 H (0.9-1.1) APTT 33.0 H (21.0-31.0) Seconds PTT Ratio 1.2 Sodium 135 L (136-145) mmol/L Potassium 3.6 (3.5-5.1) mmol/L Chloride 103 (98-107) mmol/L Carbon Dioxide 26 (21-32) mmol/L Anion Gap 6.0 (3-11) BUN 8 (7-18) mg/dl Creatinine 0.67 (0.6-1.2) mg/dl Est Cr Clr Drug Dosing 108.1 ml/min Est GFR ( Amer) 110.7 Est GFR (Non-Af Amer) 95.5 BUN/Creatinine Ratio 12.4 (10-20) Glucose 102 H (70-99) mg/dl POC Lactic Acid Mynor (0.90-1.70) mmol/L Lactate (0.4-2.0) mmol/L Calcium 8.9 (8.5-10.1) mg/dl Total Bilirubin 1.0 (0.2-1) mg/dl AST 14 L (15-37) U/L ALT 25 (12-78) U/L Alkaline Phosphatase 107 (45-117) U/L Total Creatine Kinase 44 (26-192) U/L CK-MB (CK-2) < 1.0 (0.5-3.6) ng/ml CK/CKMB % Calc TNP Troponin I < 0.015 (0-0.045) ng/ml Total Protein 7.9 (6.4-8.2) gm/dl Albumin 3.4 (3.4-5.0) gm/dl Globulin 4.5 H (2.5-4.0) gm/dl Albumin/Globulin Ratio 0.8 L (0.9-2) Monoscreen (Negative) Influenza Type A (PCR) (Neg) Influenza Type B (PCR) (Neg) 02/02/19 02/02/19 02/02/19 Range/Units 18:10 18:54 18:54 WBC (4.8-10.8) K/uL RBC (4.2-5.4) M/uL Hgb (12.0-16.0) g/dL Hct (37-47) % MCV (80-100) fL MCH (25-34) pg MCHC (32-36) g/dL RDW Std Deviation (36.4-46.3) fL RDW Coeff of Lilia (11.5-14.5) % Plt Count (130-400) K/uL MPV (7.4-10.4) fL Immature Gran % (Auto) % Neut % (Auto) % Lymph % (Auto) % Talbot % (Auto) % Eos % (Auto) % Baso % (Auto) % Immature Gran # (Auto) (0.00-0.02) K/uL Neut # (Auto) (1.4-6.5) K/uL Lymph # (Auto) (1.2-3.4) K/uL Talbot # (Auto) (0.11-0.59) K/uL Eos # (Auto) (0-0.5) K/uL Baso # (Auto) (0-0.2) K/uL PT (9.0-12.0) Seconds INR (0.9-1.1) APTT (21.0-31.0) Seconds PTT Ratio Sodium (136-145) mmol/L Potassium (3.5-5.1) mmol/L Chloride (98-107) mmol/L Carbon Dioxide (21-32) mmol/L Anion Gap (3-11) BUN (7-18) mg/dl Creatinine (0.6-1.2) mg/dl Est Cr Clr Drug Dosing ml/min Est GFR ( Amer) Est GFR (Non-Af Amer) BUN/Creatinine Ratio (10-20) Glucose (70-99) mg/dl POC Lactic Acid Mynor 0.73 L (0.90-1.70) mmol/L Lactate 0.8 (0.4-2.0) mmol/L Calcium (8.5-10.1) mg/dl Total Bilirubin (0.2-1) mg/dl AST (15-37) U/L ALT (12-78) U/L Alkaline Phosphatase (45-117) U/L Total Creatine Kinase (26-192) U/L CK-MB (CK-2) (0.5-3.6) ng/ml CK/CKMB % Calc Troponin I (0-0.045) ng/ml Total Protein (6.4-8.2) gm/dl Albumin (3.4-5.0) gm/dl Globulin (2.5-4.0) gm/dl Albumin/Globulin Ratio (0.9-2) Monoscreen Negative (Negative) Influenza Type A (PCR) (Neg) Influenza Type B (PCR) (Neg) 02/02/19 Range/Units 19:26 WBC (4.8-10.8) K/uL RBC (4.2-5.4) M/uL Hgb (12.0-16.0) g/dL Hct (37-47) % MCV (80-100) fL MCH (25-34) pg MCHC (32-36) g/dL RDW Std Deviation (36.4-46.3) fL RDW Coeff of Lilia (11.5-14.5) % Plt Count (130-400) K/uL MPV (7.4-10.4) fL Immature Gran % (Auto) % Neut % (Auto) % Lymph % (Auto) % Talbot % (Auto) % Eos % (Auto) % Baso % (Auto) % Immature Gran # (Auto) (0.00-0.02) K/uL Neut # (Auto) (1.4-6.5) K/uL Lymph # (Auto) (1.2-3.4) K/uL Talbot # (Auto) (0.11-0.59) K/uL Eos # (Auto) (0-0.5) K/uL Baso # (Auto) (0-0.2) K/uL PT (9.0-12.0) Seconds INR (0.9-1.1) APTT (21.0-31.0) Seconds PTT Ratio Sodium (136-145) mmol/L Potassium (3.5-5.1) mmol/L Chloride (98-107) mmol/L Carbon Dioxide (21-32) mmol/L Anion Gap (3-11) BUN (7-18) mg/dl Creatinine (0.6-1.2) mg/dl Est Cr Clr Drug Dosing ml/min Est GFR ( Amer) Est GFR (Non-Af Amer) BUN/Creatinine Ratio (10-20) Glucose (70-99) mg/dl POC Lactic Acid Mynor (0.90-1.70) mmol/L Lactate (0.4-2.0) mmol/L Calcium (8.5-10.1) mg/dl Total Bilirubin (0.2-1) mg/dl AST (15-37) U/L ALT (12-78) U/L Alkaline Phosphatase (45-117) U/L Total Creatine Kinase (26-192) U/L CK-MB (CK-2) (0.5-3.6) ng/ml CK/CKMB % Calc Troponin I (0-0.045) ng/ml Total Protein (6.4-8.2) gm/dl Albumin (3.4-5.0) gm/dl Globulin (2.5-4.0) gm/dl Albumin/Globulin Ratio (0.9-2) Monoscreen (Negative) Influenza Type A (PCR) Neg for Influ A (Neg) Influenza Type B (PCR) Neg for Influ B (Neg) Diagnostic Findings SINGLE VIEW CHEST CLINICAL HISTORY: Sepsis. FINDINGS: An AP, portable, upright chest radiograph is compared to study dated 06/27/2016 and correlated with chest CT dated 01/11/2018. The examination is degraded by portable technique and patient rotation. The heart is top normal for projection. The mediastinal contour is within normal limits. There is mild bibasilar atelectasis. No airspace consolidation or large pleural effusion is identified. No pneumothorax is seen. The skeletal structures are osteopenic. The bony thorax is grossly intact. IMPRESSION: No active disease in the chest. Electronically signed by: Corey Washington M.D. 02/02/2019 6:28 PM Dictated: 02/02/191826 Transcribed: 02/02/191826 ECG Additional Comments: Study shows normal sinus rhythm at 94 bpm, normal axis, WA = 174, QRS = 82, QTc = 440 and large P waves in lead I possible left atrial enlargement, nonspecific T wave changes throughout Code Status & VTE Plan Code Status Full code VTE Prophylaxis Plan VTE Prophylaxis will be ordered: Yes PG Care Time/CCT Total # of Minutes Spent Total Time Spent with Patient: Total time spent is greater than 50% in coord ination of care (as documented) at patient's floor/unit and/or counseling patient: (1) Afib Atrial fibrillation type: paroxysmal Qualified Code(s): I48.0 - Paroxysmal atrial fibrillation (2) Hypothyroid Hypothyroidism type: unspecified Qualified Code(s): E03.9 - Hypothyroidism, unspecified (3) Asthma Asthma severity: moderate Asthma persistence: persistent Asthma complication type: unspecified Qualified Code(s): J45.40 - Moderate persistent asthma, uncomplicated (4) GERD (gastroesophageal reflux disease) Esophagitis presence: esophagitis presence not specified Qualified Code(s): K21.9 - Gastro-esophageal reflux disease without esophagitis (5) Pneumonia Pneumonia type: due to unspecified organism Laterality: unspecified laterality Lung location: unspecified part of lung Qualified Code(s): J18.9 - Pneumonia, unspecified organism
[2019-02-02] MEDS ORDERED: ALBUTEROL 0.5% NEB SOLN 2.5 MG/0.5 ML VIAL NEB PRN (23:46)
[2019-02-02] MEDS ORDERED: ONDANSETRON INJ 2 MG/ML 2 ML VIAL IV PRN (23:46)
[2019-02-02] MEDS ORDERED: DOCUSATE SODIUM 100 MG CAP PO PRN (23:46)
[2019-02-03 00:27] LABS: Phosphorus 2.9 mg/dl (2.5-4.9)
[2019-02-03] MEDS: ENOXAPARIN INJ 40 MG/0.4 ML SYR SQ SCH ×2 (00:48→19:58)
[2019-02-03] MEDS: ALBUT/IPRATROP 3MG/0.5MG NEB 3 ML VIAL NEB SCH ×4 (00:51→19:08)
[2019-02-03] MEDS: methylPREDNISolone 40 MG in SYRINGE 0 ML IV SCH ×3 (03:59→19:58)
[2019-02-03] MEDS: cefTRIAXone SODIUM 2,000 MG in DEXTROSE 5% 50 ML IV SCH (03:59)
[2019-02-03 05:13] LABS: Appearance Urine Clear (Clear); Bilirubin Urine Negative (Negative); Blood Urine Negative (Negative); Color Urine Yellow; Glucose Urine UA Negative (Negative); Ketones Urine 2+ (Negative); Leukocyte Esterase Urine Negative (Negative); Nitrite Urine Negative (Negative); Protein Urine Negative (Negative); Specific Gravity Urine 1.015 (1.000-1.030); Urobilinogen Urine Negative (Negative)
[2019-02-03 06:19] LABS: Basophils # (auto) 0.01 K/uL (0-0.2); Basophils % (auto) 0.1 %; Hematocrit (blood only) 42.3 % (37-47); Hemoglobin 13.6 g/dL (12.0-16.0); Immature Granulocytes # (auto) 0.03 K/uL (0.00-0.02); Immature Granulocytes % (auto) 0.3 %; Lymphocytes # (auto) 0.46 K/uL (1.2-3.4); Mean Corpuscular Hemoglobin 27.9 pg (25-34); Mean Corpuscular Hgb Conc 32.2 g/dL (32-36); Mean Corpuscular Volume 86.9 fL (80-100); Mean Platelet Volume 10.5 fL (7.4-10.4); Monocytes # (auto) 0.12 K/uL (0.11-0.59); Neutrophils # (auto) 10.93 K/uL (1.4-6.5); Neutrophils % (auto) 94.6 %; Platelet Count 262 K/uL (130-400); RDW Coefficient of Variation 14.5 % (11.5-14.5); RDW Standard Deviation 46.8 fL (36.4-46.3); Red Blood Count 4.87 M/uL (4.2-5.4); White Blood Count 11.55 K/uL (4.8-10.8)
[2019-02-03] MEDS ORDERED: LEVOTHYROXINE SODIUM 175 MCG TABLET PO SCH (06:30)
[2019-02-03 06:56] LABS: BUN Creatinine Ratio 13.8 (10-20); Creatinine Clr Calc Pharmacy 122.6 ml/min; Est GFR (African American) 115.5; Est GFR (Non-African American) 99.6; Potassium 3.6 mmol/L (3.5-5.1)
[2019-02-03] MEDS: BENZONATATE 100 MG CAPSULE PO SCH ×3 (08:46→19:58)
[2019-02-03] MEDS: PANTOprazole 40 MG TAB PO SCH ×2 (08:46→19:58)
[2019-02-03] MEDS: ASPIRIN 81 MG ECTAB PO SCH ×2 (08:48→19:57)
[2019-02-03] MEDS: CLOBETASOL~ORDER AWAITING ACTION SCH ×2 (08:48→16:40)
[2019-02-03] MEDS: FLUTICASONE/SALMETEROL 250/50 (ADVAIR) 14 PUFF/1 INHALER INH SCH ×2 (08:48→19:58)
[2019-02-03] MEDS: ACETAMINOPHEN 325 MG TAB PO PRN (08:55)
[2019-02-03] MEDS ORDERED: METOCLOPRAMIDE HCL INJ 5 MG/ML 2 ML VIAL IV PRN (10:17)
[2019-02-03] MEDS ORDERED: KETOROLAC TROMETHAMINE 15 MG/ML VIAL IV ONE (11:46)
--- NOTE | 2019-02-03 13:13 | Hospitalist Progress Note ---
Date of Service February 03, 2019 Assessment & Plan (1) Pneumonia: * Suspected pneumonia. Patient with 3 weeks of URI symptoms with newly developed fever, leukocytosis. 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 Recent PFTs at Pulm office December 2108 with mild obstructive p attern, 12% increase in FEV with ZURI. * Initiated on advair December 2018, with improvement of symptoms, but patient states she had ran out of the samples a week ago. * Chest x-ray with no infiltrates, but pulmonary exam with bibasilar crackles. Patient currently afebrile, hemodynamically stable. Hx Sepsis. * Patient initially 88% on RA in ER. Tmax 37.7 * Currently 91% on RA * Negative for influenza, monoscreen. EBV and strep pending * Continue ceftriaxone and azithromycin for CAP -- likely atypical, given presentation * Blood cultures pending * Tessalon pearls for cough, tylenol prn fever (2) Asthma: * Patient with long-standing history of asthma, fairly well controlled outside of setting of illness. She reports worsening shortness of breath, cough and wheeze over the last 3 weeks. She has been taking her Advair as well as Spiriva and albuterol with minimal improvement, however admits to running out of her spiriva approximately a week ago. * On exam, without wheezing, crackles or rhonchi. * PFTs performed on 12/19/2018 which was suggestive of mild obstructive pattern. Mild yet and significant improvement in pulmonary function following bronchodilator administration. FEV1/FVC =71%. Possibly component of COPD as well * Continue Advair * Albuterol neb every 2 hours as needed * DuoNeb every 4 hours * Solu-Medrol 40 mg IV Q8 * Incentive spirometry encouraged * Treatment of pneumonia as above (3) Afib: * Patient with remote history of paroxysmal A. fib, initially diagnosed in April 2017. NSR on EKG, however does show non specific ST and T wave abnormality, possible left atrial enlargement * Per patient, had previously been on fleccanide and metoprolol but discontinued metoprolol herself due to fatigue and was told by her Hog Dropper Dr. Jack that if she wasn't going to take the metoprolol that she should not take the flecainide. * Not on any anticoagulation -- patient states NOAC was never discussed * Continue to monitor (4) Hypothyroid: * Chronic; TSH here low at 0.099 with FT4 upper limit of normal * lower dose of levothyroxine down to 125mcg daily * follow TFTs in 4 weeks as outpt * hyperthyroidism could be cause of her frequent palpitations * (5) GERD (gastroesophageal reflux disease): * Chronic. Stable. * Continue omeprazole (6) Rosacea conjunctivitis: * Stable * Patient uses doxycycline drops (7) Headache: * Headache this morning, likely migraine. * Tylenol and toradol gave relief (8) Lichen planus: * Hx - patient had biopsy of salivary glands d/t concerns for Sjogrens * Chronic * Stable. No meds. (9) Vertigo: * Hx of "passing out" and feeling like she is going to pass out * No fmhx of sudden cardiac * States she does get dizzy with certain head movements * Per patient, Stress test and ECHO without valvular disease or ischemia. * Records requested from [facility] -- awaiting * May benefit from tilt table testing as outpatient * Consider cardiology consultation if patient with any recurrence of CP -- trop negative x2 (10) DVT prophylaxis: * Lovenox SQ while inpatient * SCDs Dispo: patient to remain hospitalized overnight, possible discharge in AM Supervising Physician Co-Signing Physician Notes PA Supervision Note: I did not personally see or examine the patient today, but I verified all monique points of SUSIE Arthur's assessment and plan with the following exceptions/additions: None Subjective Patient evaluated at bedside this morning. She states she still has a cough, which started three weeks ago and her breathing was initially better after being started on spiriva by Dr. Lima three weeks ago, but ran out of sample a week ago and her breathing worsened. Her cough persisted and even taking a hot shower the steam worsens her breathing. Monday she developed a sore through and was nauseous and felt like she was going to throw up. Fever of 100.9 at that time with rise in temp to 101.4 yesterday. She stated when she feels chest associated chest pain for several minutes it is left sided and feels a squeezing in her left arm and into her back. She states she has mostly clear to white sputum with occasional tinge of yellow. She also expresses associated wheezing, which has improved since last night. She state she has a headache, which feels like it starts in the back of her head on the right side and travels to the front. She states she does have a history of migraines and had previously been on imitrex prior to her hysterectomy at age 29. She seems anxious about a possible cardiac history as she has had 2 30 day event monitors in the past and was told that during one of the monitors, she had a "shockable rhythm". She states she also has a history of paroxsysmal atrial fibrillation and states she had been on metoprolol and flecainide per her department manager Dr. Jakc in [place], but she took herself off of the medications because they made her feel too tired. She states she was never talked to about changing medications or anticoagulation with warfarin or a NOAC. She states last fall she had a possible ddminer and was sent for a CTA by Dr. 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 She currently works in [employer] for the past nine years. She admits to recent dysphagia of solid foods. She also states she has a history of vertigo and positional changes and looking side to side induce her symptoms. She has never had a tilt table test. She has also had multiple superficial DVTs and has been treated in the past with ablations by Dr. Armando, who started her on 2 ASA 81mg daily which has seemed to help. She states she sister in April of this year unexpectedly and she states her sister didn't have chest pain but described it as "chest discomfort". The patient states she was hospitalized at [facility] in October of this year for "hours of gnawing chest pain" that occurred at rest, and was told she had a 4.2cm aneursym. She had a stress tests and ECHO which she states she was told were fine. When seen by a different department manager while inpatient, she was then told "it's your stomach" and was told she should be see by her exercise instructor, Dr. Pool (whom she also sees for IBS - diarrhea/constipation, and distant hx ulcerative colitis, colonoscopies every 5 years with benign polyps) and he told her she needed to have a cardiac catheterization. When the patient had a follow up with Dr. Jack on January 07, "don't worry about it, keep living your life" and told her it was not needed. A week later she received a call about follow up for a cardiac catheterization from her department manager's office, and has been very frustrated ever since. She has asked her PCP Dr. Tsai for a second opinion and wishes to be set up with [facility], Dr. Norris, and is in the process of having her records transferred. Review of Systems Review of Systems: All systems reviewed & are unremarkable except as noted in HPI & below Constitutional: + fever, + chills, + body aches and + fatigue Ear, Nose, Mouth, Throat: + sore throat and + dysphagia Respiratory: + cough, + chest congestion and + dyspnea on exertion; no hemoptysis Cardiovascular: + chest pain, + palpitations and + edema Gastrointestinal: + constipation and + diarrhea/loose stools; no abdominal pain, no nausea and no vomiting Genitourinary: no dysuria and no urinary frequency Physical Exam Constitutional: WD/WN, vitals as above Eyes: PERRL, conjunctivae normal, anicteric sclerae ENMT: posterior pharynx erythema with white patches to b/l tonsils Neck: trachea midline, no thyromegaly Respiratory: normal respiratory effort; no respiratory distress and does not use accessory muscles Auscultation: no wheezes bilateral fine crackles Cardiovascular: RRR, no murmur, no edema Gastrointestinal (Abdomen): normal bowel sounds, soft, nontender, no hepatosplenomegaly Musculoskeletal: no cyanosis or clubbing, extremities motor strength 5/5 Skin: no rashes, warm and dry Psychiatric: Orientation: alert and oriented x 3 Affect: + depressed affect and + anxious affect Lymphatic: + lymphadenopathy Results & Data Vital Signs (Past 12 Hours) Vital Signs Pulse Resp Pulse Ox 02/03/19 07:12 74 19 93 Laboratory Results 02/03/19 02/03/19 02/03/19 Range/Units 05:44 05:44 05:44 WBC 11.55 H (4.8-10.8) K/uL RBC 4.87 (4.2-5.4) M/uL Hgb 13.6 (12.0-16.0) g/dL Hct 42.3 (37-47) % MCV 86.9 (80-100) fL MCH 27.9 (25-34) pg MCHC 32.2 (32-36) g/dL RDW Std Deviation 46.8 H (36.4-46.3) fL RDW Coeff of Lilia 14.5 (11.5-14.5) % Plt Count 262 (130-400) K/uL MPV 10.5 H (7.4-10.4) fL Immature Gran % (Auto) 0.3 % Neut % (Auto) 94.6 % Lymph % (Auto) 4.0 % Concho % (Auto) 1.0 % Eos % (Auto) 0.0 % Baso % (Auto) 0.1 % Immature Gran # (Auto) 0.03 H (0.00-0.02) K/uL Neut # (Auto) 10.93 H (1.4-6.5) K/uL Lymph # (Auto) 0.46 L (1.2-3.4) K/uL Concho # (Auto) 0.12 (0.11-0.59) K/uL Eos # (Auto) 0.00 (0-0.5) K/uL Baso # (Auto) 0.01 (0-0.2) K/uL PT (9.0-12.0) Seconds INR (0.9-1.1) APTT (21.0-31.0) Seconds PTT Ratio Sodium 138 (136-145) mmol/L Potassium 3.6 (3.5-5.1) mmol/L Chloride 105 (98-107) mmol/L Carbon Dioxide 26 (21-32) mmol/L Anion Gap 7.0 (3-11) BUN 8 (7-18) mg/dl Creatinine 0.59 L (0.6-1.2) mg/dl Est Cr Clr Drug Dosing 122.6 ml/min Est GFR ( Amer) 115.5 Est GFR (Non-Af Amer) 99.6 BUN/Creatinine Ratio 13.8 (10-20) Glucose 166 H (70-99) mg/dl POC Lactic Acid Mynor (0.90-1.70) mmol/L Lactate (0.4-2.0) mmol/L Calcium 9.0 (8.5-10.1) mg/dl Phosphorus (2.5-4.9) mg/dl Magnesium (1.8-2.4) mg/dl Total Bilirubin (0.2-1) mg/dl AST (15-37) U/L ALT (12-78) U/L Alkaline Phosphatase (45-117) U/L Total Creatine Kinase (26-192) U/L CK-MB (CK-2) (0.5-3.6) ng/ml CK/CKMB % Calc Troponin I < 0.015 (0-0.045) ng/ml Total Protein (6.4-8.2) gm/dl Albumin (3.4-5.0) gm/dl Globulin (2.5-4.0) gm/dl Albumin/Globulin Ratio (0.9-2) Urine Color Urine Appearance (Clear) Urine pH (4.5-7.5) Ur Specific [place] (1.000-1.030) Urine Protein (Negative) Urine Glucose (UA) (Negative) Urine Ketones (Negative) Urine Blood (Negative) Urine Nitrite (Negative) Urine Bilirubin (Negative) Urine Urobilinogen (Negative) Ur Leukocyte Esterase (Negative) EBV Capsid Ag IgG Ab EBV Capsid Ag IgM Ab EBV EA Restrict+Diffuse EBV Nuclear Antigen Ab Monoscreen (Negative) Influenza Type A (PCR) (Neg) Influenza Type B (PCR) (Neg) Urine Legionella Ag 02/03/19 02/03/19 02/02/19 Range/Units 05:01 05:01 19:26 WBC (4.8-10.8) K/uL RBC (4.2-5.4) M/uL Hgb (12.0-16.0) g/dL Hct (37-47) % MCV (80-100) fL MCH (25-34) pg MCHC (32-36) g/dL RDW Std Deviation (36.4-46.3) fL RDW Coeff of Lilia (11.5-14.5) % Plt Count (130-400) K/uL MPV (7.4-10.4) fL Immature Gran % (Auto) % Neut % (Auto) % Lymph % (Auto) % Concho % (Auto) % Eos % (Auto) % Baso % (Auto) % Immature Gran # (Auto) (0.00-0.02) K/uL Neut # (Auto) (1.4-6.5) K/uL Lymph # (Auto) (1.2-3.4) K/uL Concho # (Auto) (0.11-0.59) K/uL Eos # (Auto) (0-0.5) K/uL Baso # (Auto) (0-0.2) K/uL PT (9.0-12.0) Seconds INR (0.9-1.1) APTT (21.0-31.0) Seconds PTT Ratio Sodium (136-145) mmol/L Potassium (3.5-5.1) mmol/L Chloride (98-107) mmol/L Carbon Dioxide (21-32) mmol/L Anion Gap (3-11) BUN (7-18) mg/dl Creatinine (0.6-1.2) mg/dl Est Cr Clr Drug Dosing ml/min Est GFR ( Amer) Est GFR (Non-Af Amer) BUN/Creatinine Ratio (10-20) Glucose (70-99) mg/dl POC Lactic Acid Mynor (0.90-1.70) mmol/L Lactate (0.4-2.0) mmol/L Calcium (8.5-10.1) mg/dl Phosphorus (2.5-4.9) mg/dl Magnesium (1.8-2.4) mg/dl Total Bilirubin (0.2-1) mg/dl AST (15-37) U/L ALT (12-78) U/L Alkaline Phosphatase (45-117) U/L Total Creatine Kinase (26-192) U/L CK-MB (CK-2) (0.5-3.6) ng/ml CK/CKMB % Calc Troponin I (0-0.045) ng/ml Total Protein (6.4-8.2) gm/dl Albumin (3.4-5.0) gm/dl Globulin (2.5-4.0) gm/dl Albumin/Globulin Ratio (0.9-2) Urine Color Yellow Urine Appearance Clear (Clear) Urine pH 6.0 (4.5-7.5) Ur Specific [place] 1.015 (1.000-1.030) Urine Protein Negative (Negative) Urine Glucose (UA) Negative (Negative) Urine Ketones 2+ H (Negative) Urine Blood Negative (Negative) Urine Nitrite Negative (Negative) Urine Bilirubin Negative (Negative) Urine Urobilinogen Negative (Negative) Ur Leukocyte Esterase Negative (Negative) EBV Capsid Ag IgG Ab EBV Capsid Ag IgM Ab EBV EA Restrict+Diffuse EBV Nuclear Antigen Ab Monoscreen (Negative) Influenza Type A (PCR) Neg for Influ A (Neg) Influenza Type B (PCR) Neg for Influ B (Neg) Urine Legionella Ag Pending 02/02/19 02/02/19 02/02/19 Range/Units 18:54 18:54 18:54 WBC (4.8-10.8) K/uL RBC (4.2-5.4) M/uL Hgb (12.0-16.0) g/dL Hct (37-47) % MCV (80-100) fL MCH (25-34) pg MCHC (32-36) g/dL RDW Std Deviation (36.4-46.3) fL RDW Coeff of Lilia (11.5-14.5) % Plt Count (130-400) K/uL MPV (7.4-10.4) fL Immature Gran % (Auto) % Neut % (Auto) % Lymph % (Auto) % Concho % (Auto) % Eos % (Auto) % Baso % (Auto) % Immature Gran # (Auto) (0.00-0.02) K/uL Neut # (Auto) (1.4-6.5) K/uL Lymph # (Auto) (1.2-3.4) K/uL Concho # (Auto) (0.11-0.59) K/uL Eos # (Auto) (0-0.5) K/uL Baso # (Auto) (0-0.2) K/uL PT (9.0-12.0) Seconds INR (0.9-1.1) APTT (21.0-31.0) Seconds PTT Ratio Sodium (136-145) mmol/L Potassium (3.5-5.1) mmol/L Chloride (98-107) mmol/L Carbon Dioxide (21-32) mmol/L Anion Gap (3-11) BUN (7-18) mg/dl Creatinine (0.6-1.2) mg/dl Est Cr Clr Drug Dosing ml/min Est GFR ( Amer) Est GFR (Non-Af Amer) BUN/Creatinine Ratio (10-20) Glucose (70-99) mg/dl POC Lactic Acid Mynor (0.90-1.70) mmol/L Lactate 0.8 (0.4-2.0) mmol/L Calcium (8.5-10.1) mg/dl Phosphorus (2.5-4.9) mg/dl Magnesium (1.8-2.4) mg/dl Total Bilirubin (0.2-1) mg/dl AST (15-37) U/L ALT (12-78) U/L Alkaline Phosphatase (45-117) U/L Total Creatine Kinase (26-192) U/L CK-MB (CK-2) (0.5-3.6) ng/ml CK/CKMB % Calc Troponin I (0-0.045) ng/ml Total Protein (6.4-8.2) gm/dl Albumin (3.4-5.0) gm/dl Globulin (2.5-4.0) gm/dl Albumin/Globulin Ratio (0.9-2) Urine Color Urine Appearance (Clear) Urine pH (4.5-7.5) Ur Specific [place] (1.000-1.030) Urine Protein (Negative) Urine Glucose (UA) (Negative) Urine Ketones (Negative) Urine Blood (Negative) Urine Nitrite (Negative) Urine Bilirubin (Negative) Urine Urobilinogen (Negative) Ur Leukocyte Esterase (Negative) EBV Capsid Ag IgG Ab Pending EBV Capsid Ag IgM Ab Pending EBV EA Restrict+Diffuse Pending EBV Nuclear Antigen Ab Pending Monoscreen Negative (Negative) Influenza Type A (PCR) (Neg) Influenza Type B (PCR) (Neg) Urine Legionella Ag 02/02/19 02/02/19 02/02/19 Range/Units 18:10 18:05 18:05 WBC (4.8-10.8) K/uL RBC (4.2-5.4) M/uL Hgb (12.0-16.0) g/dL Hct (37-47) % MCV (80-100) fL MCH (25-34) pg MCHC (32-36) g/dL RDW Std Deviation (36.4-46.3) fL RDW Coeff of Lilia (11.5-14.5) % Plt Count (130-400) K/uL MPV (7.4-10.4) fL Immature Gran % (Auto) % Neut % (Auto) % Lymph % (Auto) % Concho % (Auto) % Eos % (Auto) % Baso % (Auto) % Immature Gran # (Auto) (0.00-0.02) K/uL Neut # (Auto) (1.4-6.5) K/uL Lymph # (Auto) (1.2-3.4) K/uL Concho # (Auto) (0.11-0.59) K/uL Eos # (Auto) (0-0.5) K/uL Baso # (Auto) (0-0.2) K/uL PT 11.8 (9.0-12.0) Seconds INR 1.2 H (0.9-1.1) APTT 33.0 H (21.0-31.0) Seconds PTT Ratio 1.2 Sodium 135 L (136-145) mmol/L Potassium 3.6 (3.5-5.1) mmol/L Chloride 103 (98-107) mmol/L Carbon Dioxide 26 (21-32) mmol/L Anion Gap 6.0 (3-11) BUN 8 (7-18) mg/dl Creatinine 0.67 (0.6-1.2) mg/dl Est Cr Clr Drug Dosing 108.1 ml/min Est GFR ( Amer) 110.7 Est GFR (Non-Af Amer) 95.5 BUN/Creatinine Ratio 12.4 (10-20) Glucose 102 H (70-99) mg/dl POC Lactic Acid Mynor 0.73 L (0.90-1.70) mmol/L Lactate (0.4-2.0) mmol/L Calcium 8.9 (8.5-10.1) mg/dl Phosphorus 2.9 (2.5-4.9) mg/dl Magnesium 2.0 (1.8-2.4) mg/dl Total Bilirubin 1.0 (0.2-1) mg/dl AST 14 L (15-37) U/L ALT 25 (12-78) U/L Alkaline Phosphatase 107 (45-117) U/L Total Creatine Kinase 44 (26-192) U/L CK-MB (CK-2) < 1.0 (0.5-3.6) ng/ml CK/CKMB % Calc TNP Troponin I < 0.015 (0-0.045) ng/ml Total Protein 7.9 (6.4-8.2) gm/dl Albumin 3.4 (3.4-5.0) gm/dl Globulin 4.5 H (2.5-4.0) gm/dl Albumin/Globulin Ratio 0.8 L (0.9-2) Urine Color Urine Appearance (Clear) Urine pH (4.5-7.5) Ur Specific [place] (1.000-1.030) Urine Protein (Negative) Urine Glucose (UA) (Negative) Urine Ketones (Negative) Urine Blood (Negative) Urine Nitrite (Negative) Urine Bilirubin (Negative) Urine Urobilinogen (Negative) Ur Leukocyte Esterase (Negative) EBV Capsid Ag IgG Ab EBV Capsid Ag IgM Ab EBV EA Restrict+Diffuse EBV Nuclear Antigen Ab Monoscreen (Negative) Influenza Type A (PCR) (Neg) Influenza Type B (PCR) (Neg) Urine Legionella Ag 02/02/19 Range/Units 18:05 WBC 13.35 H (4.8-10.8) K/uL RBC 4.98 (4.2-5.4) M/uL Hgb 14.0 (12.0-16.0) g/dL Hct 43.3 (37-47) % MCV 86.9 (80-100) fL MCH 28.1 (25-34) pg MCHC 32.3 (32-36) g/dL RDW Std Deviation 46.3 (36.4-46.3) fL RDW Coeff of Lilia 14.6 H (11.5-14.5) % Plt Count 239 (130-400) K/uL MPV 10.1 (7.4-10.4) fL Immature Gran % (Auto) 0.3 % Neut % (Auto) 80.4 % Lymph % (Auto) 10.9 % [place] % (Auto) 8.2 % Eos % (Auto) 0.1 % Baso % (Auto) 0.1 % Immature Gran # (Auto) 0.04 H (0.00-0.02) K/uL Neut # (Auto) 10.74 H (1.4-6.5) K/uL Lymph # (Auto) 1.45 (1.2-3.4) K/uL Con[place] # (Auto) 1.09 H (0.11-0.59) K/uL Eos # (Auto) 0.01 (0-0.5) K/uL Baso # (Auto) 0.02 (0-0.2) K/uL PT (9.0-12.0) Seconds INR (0.9-1.1) APTT (21.0-31.0) Seconds PTT Ratio Sodium (136-145) mmol/L Potassium (3.5-5.1) mmol/L Chloride (98-107) mmol/L Carbon Dioxide (21-32) mmol/L Anion Gap (3-11) BUN (7-18) mg/dl Creatinine (0.6-1.2) mg/dl Est Cr Clr Drug Dosing ml/min Est GFR ( Amer) Est GFR (Non-Af Amer) BUN/Creatinine Ratio (10-20) Glucose (70-99) mg/dl POC Lactic Acid Mynor (0.90-1.70) mmol/L Lactate (0.4-2.0) mmol/L Calcium (8.5-10.1) mg/dl Phosphorus (2.5-4.9) mg/dl Magnesium (1.8-2.4) mg/dl Total Bilirubin (0.2-1) mg/dl AST (15-37) U/L ALT (12-78) U/L Alkaline Phosphatase (45-117) U/L Total Creatine Kinase (26-192) U/L CK-MB (CK-2) (0.5-3.6) ng/ml CK/CKMB % Calc Troponin I (0-0.045) ng/ml Total Protein (6.4-8.2) gm/dl Albumin (3.4-5.0) gm/dl Globulin (2.5-4.0) gm/dl Albumin/Globulin Ratio (0.9-2) Urine Color Urine Appearance (Clear) Urine pH (4.5-7.5) Ur Specific [place] (1.000-1.030) Urine Protein (Negative) Urine Glucose (UA) (Negative) Urine Ketones (Negative) Urine Blood (Negative) Urine Nitrite (Negative) Urine Bilirubin (Negative) Urine Urobilinogen (Negative) Ur Leukocyte Esterase (Negative) EBV Capsid Ag IgG Ab EBV Capsid Ag IgM Ab EBV EA Restrict+Diffuse EBV Nuclear Antigen Ab Monoscreen (Negative) Influenza Type A (PCR) (Neg) Influenza Type B (PCR) (Neg) Urine Legionella Ag PG Care Time/CCT Total # of Minutes Spent Total Time Spent with Patient: Total time spent is greater than 50% in coordination of care (as documented) at patient's floor/unit and/or counseling patient: (1) Afib Atrial fibrillation type: paroxysmal Qualified Code(s): I48.0 - Paroxysmal atrial fibrillation (2) Hypothyroid Hypothyroidism type: unspecified Qualified Code(s): E03.9 - Hypothyroidism, unspecified (3) GERD (gastroesophageal reflux disease) Esophagitis presence: esophagitis presence not specified Qualified Code(s): K21.9 - Gastro-esophageal reflux disease without esophagitis (4) Pneumonia Laterality: unspecified laterality Lung location: unspecified part of lung Pneumonia type: due to unspecified organism Qualified Code(s): J18.9 - Pneumonia, unspecified organism (5) Asthma Asthma complication type: unspecified Asthma persistence: persistent Asthma severity: moderate Qualified Code(s): J45.40 - Moderate persistent asthma, uncomplicated
[2019-02-03 18:18] LABS: Thyroid Stimulating Hormone 0.099 uIu/ml (0.300-4.500)
[2019-02-03 19:21] LABS: T4 Free Thyroxine 1.39 ng/dl (0.8-1.6)
[2019-02-04] MEDS ORDERED: AZITHROMYCIN 250 MG in DEXTROSE 5% 250 ML IV SCH
[2019-02-04] MEDS: CLOBETASOL~ORDER AWAITING ACTION SCH ×4 (01:11→23:24)
[2019-02-04] MEDS: ALBUT/IPRATROP 3MG/0.5MG NEB 3 ML VIAL NEB SCH ×5 (01:32→21:16)
[2019-02-04] MEDS ORDERED: DiphenhydrAMINE HCL 50 MG/ML VIAL IV STA (01:36)
[2019-02-04] MEDS: methylPREDNISolone 40 MG in SYRINGE 0 ML IV SCH (03:17)
[2019-02-04] MEDS: cefTRIAXone SODIUM 2,000 MG in DEXTROSE 5% 50 ML IV SCH (03:30)
[2019-02-04 06:06] LABS: Basophils # (auto) 0.01 K/uL (0-0.2); Basophils % (auto) 0.1 %; Hematocrit (blood only) 42.1 % (37-47); Hemoglobin 13.8 g/dL (12.0-16.0); Immature Granulocytes # (auto) 0.07 K/uL (0.00-0.02); Immature Granulocytes % (auto) 0.4 %; Lymphocytes # (auto) 1.26 K/uL (1.2-3.4); Lymphocytes % (auto) 6.7 %; Mean Corpuscular Hemoglobin 28.7 pg (25-34); Mean Corpuscular Hgb Conc 32.8 g/dL (32-36); Mean Corpuscular Volume 87.5 fL (80-100); Mean Platelet Volume 10.3 fL (7.4-10.4); Monocytes # (auto) 1.17 K/uL (0.11-0.59); Monocytes % (auto) 6.3 %; Neutrophils # (auto) 16.21 K/uL (1.4-6.5); Neutrophils % (auto) 86.5 %; Platelet Count 286 K/uL (130-400); RDW Coefficient of Variation 14.6 % (11.5-14.5); Red Blood Count 4.81 M/uL (4.2-5.4); White Blood Count 18.72 K/uL (4.8-10.8)
[2019-02-04] MEDS ORDERED: LEVOTHYROXINE SODIUM 125 MCG TABLET PO SCH (06:30)
[2019-02-04 06:35] LABS: BUN Creatinine Ratio 24.6 (10-20); Calcium 9.5 mg/dl (8.5-10.1); Creatinine Clr Calc Pharmacy 114.8 ml/min; Est GFR (Non-African American) 97.5; Potassium 4.4 mmol/L (3.5-5.1)
[2019-02-04] MEDS: FLUTICASONE/SALMETEROL 250/50 (ADVAIR) 14 PUFF/1 INHALER INH SCH ×2 (08:28→20:54)
[2019-02-04] MEDS: BENZONATATE 100 MG CAPSULE PO SCH ×3 (08:29→20:54)
[2019-02-04] MEDS: PANTOprazole 40 MG TAB PO SCH ×2 (08:30→20:54)
[2019-02-04] MEDS: predniSONE 20 MG TAB PO SCH (08:32)
[2019-02-04] MEDS: ACETAMINOPHEN 325 MG TAB PO PRN (15:53)
[2019-02-04] MEDS ORDERED: POLYETHYLENE (MIRALAX) 17 GM PACK PO STA (16:48)
--- NOTE | 2019-02-04 20:06 | Hospitalist Progress Note ---
Date of Service February 04, 2019 Assessment & Plan (1) Pneumonia: Continues to have bilateral bibasal mild crackles on exam. No convincing lobar pneumonia on auscultation today or on chest x-ray previously. Mild leukocytosis on admission (denied outpatient steroid treatment) With outpatient subjective fever. No procalcitonin on admission. Will repeat chest x-ray to determine ongoing treatment with ceftriaxone. Okay to continue azithromycin for asthma exacerbation, as below Rapid and culture strep negative, blood cultures negative after 24 hours. Moderate amounts of oral stacey on sputum Gram stain with culture pending at this time. EBV and Legionella antigen pending. (2) Asthma: Continue Advair. FEV1/FVC 71% December 2018 -mild obstructive pattern with significant improvement in pulmonary function following bronchodilator administration. DuoNeb's 4 times daily and as needed for wheezing. Reduce prednisone today to 40 mg p.o. daily Azithromycin -switch IV to p.o. for total course of 5 days. (3) Afib: Paroxysmal atrial fibrillation. 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 Reports prior use of flecainide and metoprolol however this made her fatigued and she was advised to come off both. Not on anticoagulation. Unclear if NOAC was discussed. Regular rhythm while admitted. [id number] - 1, therefore will defer further treatment at this time and recommend outpatient cardiology follow up. (4) Hypothyroid: Chronic. TSH 0.099, free T4 upper limit of normal. Reduce levothyroxine from 175 to 150 mcg daily. (5) GERD (gastroesophageal reflux disease): Switch omeprazole to pantoprazole as per hospital formulary. No epigastric pain on exam. (6) Rosacea conjunctivitis: Continue on doxycycline eyedrops as per outpatient regimen. (7) Vertigo: Multiple outpatient concerns of presyncope, chest pain with recent prior stress test. Recommend continuing outpatient follow-up with cardiology. No acute complaints at this time. (8) DVT prophylaxis: Lovenox 40 mg SQ every 24 hours (9) Discharge planning issues: Lives at home with her . Aim for discharge home tomorrow Subjective Feels somewhat improved since admission with ongoing cough and shortness of breath on exertion however she does not current she has enough energy to manage at home. She also looks after her at home and so is concerned that returning too early wound end her back up in hospital. Review of Systems Review of Systems: All systems reviewed & are unremarkable except as noted in HPI & below Physical Exam Constitutional: well developed and + obese; no acute distress Respiratory: normal respiratory effort; no respiratory distress, no labored breathing and does not use accessory muscles Auscultation: + wheezes (mild exp); no diminished lung sounds, no crackles, no rales and no rhonchi Cardiovascular: RRR, no murmur, no edema Gastrointestinal (Abdomen): normal bowel sounds, soft, nontender, no hepatosplenomegaly Musculoskeletal: no cyanosis or clubbing, extremities motor strength 5/5 Skin: no rashes, warm and dry Neurologic: moves all extremities and awake; no focal motor deficits and not confused Psychiatric: A+Ox3, euthymic affect Results & Data Vital Signs (Past 12 Hours) Vital Signs Temp Pulse Resp BP Pulse Ox 02/04/19 15:37 98.1 F 91 H 18 128/84 91 02/04/19 13:50 79 16 94 PG Care Time/CCT Total # of Minutes Spent Total Time Spent with Patient: Total time spent is greater than 50% in coordination of care (as documented) at patient's floor/unit and/or counseling patient: (1) Afib Atrial fibrillation type: paroxysmal Qualified Code(s): I48.0 - Paroxysmal atrial fibrillation (2) Hypothyroid Hypothyroidism type: unspecified Qualified Code(s): E03.9 - Hypothyroidism, unspecified (3) GERD (gastroesophageal reflux disease) Esophagitis presence: esophagitis presence not specified Qualified Code(s): K21.9 - Gastro-esophageal reflux disease without esophagitis (4) Pneumonia Laterality: unspecified laterality Lung location: unspecified part of lung Pneumonia type: due to unspecified organism Qualified Code(s): J18.9 - Pneumonia, unspecified organism (5) Asthma Asthma complication type: with acute exacerbation Asthma persistence: persistent Asthma severity: moderate Qualified Code(s): J45.41 - Moderate persistent asthma with (acute) exacerbation
[2019-02-04] MEDS ORDERED: DOCUSATE SODIUM 100 MG CAP PO SCH (21:00)
--- NOTE | 2019-02-04 21:04 | Progress Note ---
Date of Service February 04, 2019 Subjective RN called pt reported rosacea flare - eye swollen Started on flare dose of 100mg doxycycline daily - takes 50mg daily when not flared Results & Data Vital Signs (Past 12 Hours) Vital Signs Temp Pulse Resp BP Pulse Ox 02/04/19 19:25 80 18 95 02/04/19 15:37 36.7 C 91 H 18 128/84 91 02/04/19 13:50 79 16 94 PG Care Time/CCT Total # of Minutes Spent Total Time Spent with Patient: Total time spent is greater than 50% in coordination of care (as documented) at patient's floor/unit and/or counseling patient:
--- NOTE | 2019-02-04 21:36 | XRay Report ---
TWO VIEW CHEST CLINICAL HISTORY: Pneumonia. FINDINGS: PA and lateral chest radiographs are compared to study dated 02/02/2019 and correlated with chest CT dated 01/11/2018. The heart is top normal for projection. There is bibasilar scarring/atelec tasis. No airspace consolidation or pleural effusion is identified. There is no pneumothorax. The ske letal structures are osteopenic. The bony thorax appears intact. Cholecystectomy clips are noted in t he right upper quadrant. IMPRESSION: No airspace consolidation or pleural effusion is identified. Electronically signed by: Corey Washington M.D. 02/04/2019 9:34 PM
[2019-02-04] MEDS: ENOXAPARIN INJ 40 MG/0.4 ML SYR SQ SCH (23:42)
[2019-02-05] MEDS ORDERED: LEVOTHYROXINE SODIUM 150 MCG TABLET PO SCH (06:30)
[2019-02-05] MEDS: ALBUT/IPRATROP 3MG/0.5MG NEB 3 ML VIAL NEB SCH ×2 (08:30→11:38)
[2019-02-05] MEDS ORDERED: AZITHROMYCIN 250 MG TAB PO SCH (09:00)
[2019-02-05] MEDS ORDERED: DOXYCYCLINE HYCLATE 100 MG CAP PO SCH (09:00)
[2019-02-05] MEDS: CLOBETASOL~ORDER AWAITING ACTION SCH ×2 (09:09→15:37)
[2019-02-05] MEDS: ACETAMINOPHEN 325 MG TAB PO PRN (09:41)
[2019-02-05] MEDS: FLUTICASONE/SALMETEROL 250/50 (ADVAIR) 14 PUFF/1 INHALER INH SCH ×2 (09:42→12:05)
[2019-02-05] MEDS ORDERED: NYSTATIN SUSP 500,000 U/5 ML UDC PO STA (10:59)
[2019-02-05] MEDS ORDERED: DOXYCYCLINE HYCLATE 100 MG in DEXTROSE 5% 100 ML IV STA (11:07)
[2019-02-05] MEDS: ASPIRIN 81 MG ECTAB PO SCH (12:06)
[2019-02-05] MEDS: predniSONE 20 MG TAB PO SCH ×2 (12:06→15:38)
[2019-02-05] MEDS: BENZONATATE 100 MG CAPSULE PO SCH ×2 (12:06→14:46)
[2019-02-05] MEDS: PANTOprazole 40 MG TAB PO SCH (12:06)
--- NOTE | 2019-02-05 12:46 | Hospitalist Progress Note ---
Date of Service February 05, 2019 Assessment & Plan (1) Pneumonia: Continues to have bilateral bibasal mild crackles on exam. No convincing lobar pneumonia on auscultation today or on chest x-ray previously. Mild leukocytosis on admission (denied outpatient steroid treatment) With outpatient subjective fever. No procalcitonin on admission. Will repeat chest x-ray to determine ongoing treatment with ceftriaxone. Okay to continue azithromycin for asthma exacerbation, as below Rapid and culture strep negative, blood cultures negative after 24 hours. Moderate amounts of oral stacey on sputum Gram stain with culture pending at this time. EBV and Legionella antigen pending. (2) Asthma: Continue Advair. FEV1/FVC 71% December 2018 -mild obstructive pattern with significant improvement in pulmonary function following bronchodilator administration. DuoNeb's 4 times daily and as needed for wheezing. Reduce prednisone today to 40 mg p.o. daily Azithromycin -switch IV to p.o. for total course of 5 days. (3) Afib: Paroxysmal atrial fibrillation. History of palpitations and as per patient this was picked up on outpatient nurse monitoring. Reports prior use of flecainide and metoprolol however this made her fatigued and she was advised to come off both. Not on anticoagulation. Unclear if NOAC was discussed. Regular rhythm while admitted. [id number] - 1, therefore will defer further treatment at this time and recommend outpatient cardiology follow up. (4) Hypothyroid: Chronic. TSH 0.099, free T4 upper limit of normal. Reduce levothyroxine from 175 to 150 mcg daily. (5) GERD (gastroesophageal reflux disease): Switch omeprazole to pantoprazole as per hospital formulary. No epigastric pain on exam. (6) Rosacea conjunctivitis: Continue on doxycycline eyedrops as per outpatient regimen. (7) Vertigo: Multiple outpatient concerns of presyncope, chest pain with recent prior stress test. Recommend continuing outpatient follow-up with cardiology. No acute complaints at this time. (8) DVT prophylaxis: Lovenox 40 mg SQ every 24 hours (9) Discharge planning issues: Lives at home with her . Aim for discharge home tomorrow Results & Data Vital Signs (Past 12 Hours) Vital Signs Temp Pulse Resp BP Pulse Ox 02/05/19 07:16 100.0 F H 99 H 16 137/88 90 PG Care Time/CCT Total # of Minutes Spent Total Time Spent with Patient: Total time spent is greater than 50% in coordination of care (as documented) at patient's floor/unit and/or counseling patient: (1) Pneumonia Pneumonia type: due to unspecified organism Laterality: unspecified laterality Lung location: unspecified part of lung Qualified Code(s): J18.9 - Pneumonia, unspecified organism (2) Asthma Asthma severity: unspecified severity Asthma persistence: unspecified Asthma complication type: unspecified Qualified Code(s): J45.909 - Unspecified asthma, uncomplicated (3) Afib Atrial fibrillation type: paroxysmal Qualified Code(s): I48.0 - Paroxysmal atrial fibrillation (4) Hypothyroid Hypothyroidism type: unspecified Qualified Code(s): E03.9 - Hypothyroidism, unspecified (5) GERD (gastroesophageal reflux disease) Esophagitis presence: esophagitis presence not specified Qualified Code(s): K21.9 - Gastro-esophageal reflux disease without esophagitis
[2019-02-05] MEDS ORDERED: NYSTATIN SUSP 500,000 U/5 ML UDC PO SCH (13:00)
[2019-02-05 15:01] LABS: EBV Virus Capsid Ag IgG Ab >750.00 U/ML
== END 2019-02-05 18:22 | disposition home or self-care (01) | DRG 194 ==
LOC: ED 17:34 → 4W 22:57 → SUATTDRO 22:57 → 4W 23:14

== ENCOUNTER 2022-07-15 11:40 | Observation (INO) ==
--- NOTE | 2022-07-15 12:22 | XRay Report ---
SINGLE VIEW CHEST CLINICAL HISTORY: Atypical chest pain. FINDINGS: An AP, portable, upright chest radiograph is compared to study dated 10/31/2019. The cardiom ediastinal silhouette is unremarkable. The lungs and pleural spaces are clear noting mild bibasilar a telectasis. No pneumothorax is seen. The skeletal structures are osteopenic. The bony thorax is gross ly intact. IMPRESSION: No active disease in the chest. ACT 112: Negative or not required by law. Electronically signed by: Corey Washington M.D. 07/15/2022 12:21 PM
[2022-07-15 12:26] LABS: Basophils # (auto) 0.08 K/uL (0-0.2); Basophils % (auto) 0.5 %; Eosinophils # (auto) 0.25 K/uL (0-0.50); Eosinophils % (auto) 1.6 %; Hematocrit (blood only) 45.5 % (37.0-47.0); Hemoglobin 14.6 g/dl (12.0-16.0); Immature Granulocytes # (auto) 0.09 K/uL (0.01-0.20); Immature Granulocytes % (auto) 0.6 %; Lymphocytes # (auto) 3.09 K/uL (1.2-3.4); Lymphocytes % (auto) 19.6 %; Mean Corpuscular Hemoglobin 28.1 pg (25.0-34.0); Mean Corpuscular Hgb Conc 32.1 g/dL (32.0-36.0); Mean Corpuscular Volume 87.7 fL (80.0-100.0); Mean Platelet Volume 10.4 fL (9.4-12.4); Monocytes # (auto) 0.91 K/uL (0.11-0.59); Monocytes % (auto) 5.8 %; Neutrophils # (auto) 11.34 K/uL (1.40-6.50); Neutrophils % (auto) 71.9 %; Platelet Count 302 K/uL (130-400); RDW Coefficient of Variation 14.1 % (11.5-14.5); RDW Standard Deviation 45.1 fL (36.4-46.3); Red Blood Count 5.19 M/uL (4.20-5.40); White Blood Count 15.76 K/ul (4.8-10.8)
[2022-07-15 12:42] LABS: Alanine Aminotransferase 31 U/L (7-52); Albumin Globulin Ratio 1.3 (0.9-2); Albumin Level 4.1 gm/dl (3.4-5.0); Alkaline Phosphatase 92 U/L (34-104); Anion Gap 8 (3-11); Aspartate Aminotransferase 19 U/L (13-39); BUN Creatinine Ratio 19.7 (10-20); Blood Urea Nitrogen 12 mg/dl (6-23); Calcium 9.2 mg/dl (8.6-10.3); Carbon Dioxide 30 mmol/L (21-32); Chloride 101 mmol/L (98-107); Est GFR (African American) 111.8 ml/min; Est GFR (Non-African American) 96.5 ml/min; Globulin 3.1 gm/dl (2.5-4.0); Glucose 79 mg/dl (70-99(Fasting)); Sodium 139 mmol/L (136-145); Total Protein 7.2 gm/dl (6.0-8.3)
[2022-07-15] MEDS ORDERED: methylPREDNISolone 125 MG/2 ML VIAL IV STA (12:47)
[2022-07-15] MEDS ORDERED: ALBUT/IPRATROP 3MG/0.5MG NEB 3 ML VIAL NEB ONE (12:47)
[2022-07-15 12:48] LABS: Troponin I High Sensitivity 4.1 pg/ml (0-14)
[2022-07-15 13:42] LABS: Adenovirus PCR Not Detected (NotDetected); Bordetella parapertussis PCR Not Detected (NotDetected); Bordetella pertussis PCR Not Detected (NotDetected); Chlamydia pneumoniae PCR Not Detected (NotDetected); Coronavirus 229E PCR Not Detected (NotDetected); Coronavirus CoV-2 (COVID19)PCR Not Detected (NotDetected); Coronavirus HKU1 PCR Not Detected (NotDetected); Coronavirus NL63 PCR Not Detected (NotDetected); Coronavirus OC43PCR Not Detected (NotDetected); Human Metapneumovirus PCR Not Detected (NotDetected); Influenza A PCR Not Detected (NotDetected); Influenza B PCR Not Detected (NotDetected); Mycoplasma pneumoniae PCR Not Detected (NotDetected); Parainfluenza Virus 1 PCR Not Detected (NotDetected); Parainfluenza Virus 2 PCR Not Detected (NotDetected); Parainfluenza Virus 3 PCR Not Detected (NotDetected); Parainfluenza Virus 4 PCR Not Detected (NotDetected); Respiratory Syncytial VirusPCR Not Detected (NotDetected)
[2022-07-15 13:45] LABS: Rhinovirus/Enterovirus PCR DETECTED (NotDetected)
[2022-07-15 13:53] LABS: Partial Thromboplastin Time 27.4 Seconds (21.0-31.0); Prothrombin Time 11.2 Seconds (9.0-12.0)
--- NOTE | 2022-07-15 14:57 | Ultrasound Report ---
ULTRASOUND RIGHT LOWER EXTREMITY VENOUS CLINICAL HISTORY: Calf pain. COMPARISON STUDY: Right lower extremity venous ultrasound dated 03/08/2019 TECHNIQUE: Real-time, grayscale, and color Doppler sonography of the deep veins of the right lower ex tremity was performed from the inguinal crease to the calf. Compression and augmentation were utilize d. FINDINGS: There is no sonographic evidence of deep venous thrombosis identified in the right lower ex tremity. The common femoral, superficial femoral, and popliteal veins are patent and normally melissa sible. The greater saphenous vein and the profunda femoris vein at the junction with the common femor al vein are clear. The visualized calf veins are patent. There are superficial venous varicosities id entified in the calf at the site of discomfort. These vessels are patent. IMPRESSION: 1. There is no sonographic evidence of deep venous thrombosis identified in the right lower extremity . 2. Superficial venous varicosities are seen in the right calf at the site of discomfort. ACT 112: Negative or not required by law. Electronically signed by: Corey Washington M.D. 07/15/2022 2:56 PM
[2022-07-15] MEDS ORDERED: SODIUM CHLORIDE 0.9% 1000ML 1,000 ML IV SCH (15:30)
--- NOTE | 2022-07-15 15:33 | Emergency Department Note ---
Impression & Plan Dyspnea, Hypoxia, Bronchiectasis, URI (upper respiratory infection), Hemoptysis ED Provider Note ED Provider Note NAME: KERRI BLUE AGE:61 SEX: Female : 1960 ARRIVES VIA: private vehicle INFORMANT: Patient ED PROVIDER(s): Kerri Garduno DO CHIEF COMPLAINT: Increased shortness of breath HPI: This is a 61-year-old female who presents emergency department due to increased shortness of breath. Initial history limited due to patient's increased work of breathing. Patient with a history of bronchiectasis, ast hma/COPD. She states she started having worsening symptoms the end of last week and called her sterile processing tech at [facility]. She states on Monday she felt worse and they called her and prednisone and Augmentin. She states she finished both of those and felt like she was starting to get better however this morning felt markedly worse again. She states she did try using her breathing treatments at home without any improvement. She denies any other known sick contacts. PAST MEDICAL HISTORY:See Below PAST SURGICAL HISTORY:See Below FAMILY HISTORY:See Below SOCIAL HISTORY:See Below HOME MEDICATIONS:See Below ALLERGIES:See Below VITALS:See Below PHYSICAL EXAMINATION: GENERAL: alert, unwell appearing, well nourished, moderate distress, non-toxic EYE EXAM: normal conjunctiva, PERRL and EOM's grossly intact OROPHARYNX: no exudate, no erythema, lips, buccal mucosa, and tongue normal and mucous membranes are moist NECK: supple, no nuchal rigidity, no adenopathy, non-tender LUNGS: Normal chest wall mechanics, scattered rhonchi and expiratory wheezes bilaterally, tachypnea, mild supraclavicular retractions HEART: no murmurs, S1 normal and S2 normal ABDOMEN: abdomen soft, non-tender, normo-active bowel sounds, no masses, no rebound or guarding. BACK: Back is symmetrical on inspection and there is no deformity, no midline tenderness, no CVA tenderness. SKIN: no rashes, petechiae, orbruising UPPER EXTREMITIES: upper extremities are grossly normal. FROM, nml pulses b/l. LOWER EXTREMITIES: No pitting edema. FROM, nml pulses b/l. NEURO EXAM: Normal sensorium, cranial nerves II-XII grossly intact, normal speech, no facial droop,nogross weakness of arms, no gross weakness of legs. Gross sensation intact. No ataxia. Vital Signs: reviewed and remarkable Differential Diagnosis: pna, uri, pe, chf, pleural effusion, pericarditiis, pericardial effusion, aspiration, FB, asthma/COPD exacerbation, croup, as well as others were considered MEDICAL DECISION MAKING: THis is a 61 yo female who presents with increased shortness of breath despite outpatient treatment for asthma/COPD exacerbation with steroids and antibiotics. Patient obvious increased WOB and was mildly hypoxic on arrival. Labs drawn and sent, IV established, EKG and CXR performed and interpreted at bedside, and patient placed on telemetry. Patient given continuous nebulizer treatment with some improvement in WOB and hypoxia. She was given IV solumedrol and NSS additionally. GIven accompanying hemoptysis, we also discussed PE. AFter additional discussion, we opted to perform CTA which was reassuring. Biofire was positive for viral infection which may have likely been the etiology of her symptoms initially. Due to concern for persistent hypoxia with conversation after nebs and steroids and recent outpatient treatment, case discussed with hospitalist for additional evaluation. Consultation(s): 1655: DIscussed with Dr. Otero, [facility] hospitalist team. ER Treatment Provided: See below 1222: Patient states she is feeling improved on nebulizer treatment. 1530: Patient with faint scattered end expiratory wheeze on repeat auscultation. While talking with the patient, she did desaturate to 87% again. She was placed on nasal cannula at 1 to 2 L/min. Updated on additional results. Discussed CT imaging. Diagnostics Interpreted By Me: -ECG: Normal sinus at 99, normal axis, normal intervals, no acute ST/T wave changes -Cardiac Monitoring: An order was placed for continuous cardiac monitoring. The monitor shows a rate of 82 with normal sinus Rhythm. -Laboratory studies: As stated above and show below. -Imaging studies: X-ray Chest: A single view study of the chest was reviewed and was negative for cardiomegaly, focal infiltrate, effusion, pulmonary edema, or wide mediastinum. Triage Nursing Note Reviewed Prior/Outside Records Reviewed Procedures: [] Critical Care: Critical care of 39 min performed to assess and manage high likelihood of life- threatening dypsnea and hypoxia, involving labs and imaging performed with assessment to evaluate COPD exacerbation diagnosis with frequent reassessment. This time includes bedside time, treatment discussions with patient/family/consultants, documentation time and excludes procedure time. Past Med/Surg History Medical History (Updated 07/15/22 @ 22:41 by Sam Otero MD) Afib Asthma Chronic cough Endometriosis Enlarged thoracic aorta GERD (gastroesophageal reflux disease) Hypothyroid IBS (irritable bowel syndrome) Intrinsic asthma Lichen planus Lichen sclerosus Moderate persistent asthma Rosacea conjunctivitis Vertigo Surgical History History of breast biopsy History of cholecystectomy History of foot surgery History of hysterectomy History of laparoscopy Family History Grandfather (Maternal) Colorectal cancer Sister Colorectal cancer Denies family history of Ovarian cancer Breast cancer Social History Smoking Status: Never smoker Second Hand Exposure: No; Do You Dip or Chew Tobacco: No; Hx Alcohol Use: Yes Hx Substance Use: No Preferred Language: Divehi Communication Ability: Effective Dye Lab Technician Required: No Beliefs That Will Affect Care: None Current Living Situation: Spouse Other Information That Helps Us Care for You: No Feels Safe at Home: Yes Safety Concerns: Feels Safe At This Time Assistive Devices: Glasses and Oxygen - at Night Allergies Allergies Allergy/AdvReac Type Severity Reaction Status Date / Time codeine Allergy Mild SEVERE Verified 07/15/22 13:13 STOMACH PAIN, COLD AND CLAMMY. adhesive Allergy Unknown rash Verified 07/15/22 13:13 chlorhexidine AdvReac Intermediate ITCHING Verified 07/15/22 13:13 AND BURNING AT SITE OF USE aspirin AdvReac Mild too much Verified 07/15/22 13:13 aspirin causes stomach bleed NSAIDS (Non-Steroidal AdvReac Unknown gastric Verified 07/15/22 13:13 Anti-Inflamma bleeding Home Meds Home Medications Medication Instructions Recorded Confirmed omega 5-tdk-wfm-fish oil 1,000 mg 1 cap PO DAILY 02/22/18 07/15/22 (120 mg-180 mg) capsule (Fish Oil) cholecalciferol (vitamin D3) 50 2,000 unit PO DAILY 12/14/18 07/15/22 mcg (2,000 unit) tablet docusate sodium 100 mg capsule 100 mg PO DAILY PRN Constipation 12/14/18 07/15/22 omeprazole magnesium 20 mg 40 mg PO BID 12/19/18 07/15/22 tablet,delayed release aspirin 81 mg tablet,delayed 162 mg PO DAILY 02/02/19 07/15/22 release (Diane Low Dose Aspirin) Oxygen Home 04/25/22 04/25/22 buspirone 5 mg tablet 5 mg PO BID 04/25/22 07/15/22 flecainide 50 mg tablet 50 mg PO Q12H 04/25/22 07/15/22 clobetasol 0.05 % topical cream 1 applic topical DAILY PRN Itching 07/15/22 0 07/15/22 doxycycline hyclate 50 mg capsule 50 mg PO DAILY 07/15/22 07/15/22 levothyroxine 175 mcg tablet 175 mcg PO HS 07/15/22 07/15/22 (Synthroid) nystatin 100,000 unit/gram topical 1 applic topical BID PRN Unknown 07/15/22 07/15/22 powder verapamil 40 mg tablet 40 mg PO BID 07/15/22 07/15/22 Previous Rx's Medication Instructions Recorded albuterol sulfate 2.5 mg/3 mL 2.5 mg (3 mL) inhalation QID PRN 02/21/19 (0.083 %) solution for nebulization shortness of breath or wheezing #180 vials fluticasone 500 mcg-salmeterol 50 1 puffs inhalation BID #180 ea 06/24/19 mcg/dose blistr powdr for inhalation (Advair Diskus) tiotropium bromide 2.5 2 puffs inhalation DAILY #3 06/24/19 mcg/actuation mist for inhalation Inhalers (Spiriva Respimat) albuterol sulfate 90 mcg/actuation 2 puff inhalation Q4H PRN Wheezing 08/20/19 aerosol inhaler (Ventolin HFA) #54 grams Results & Data (ED) Vital Signs Vital Signs - 24 hr 07/15/22 15:52 07/15/22 16:32 07/15/22 17:27 Pulse Rate 82 Pulse Rate [Apical] 86 85 Respiratory Rate 18 18 Respiratory Effort / Characteristics Non-Labored Respiratory Depth Normal Respiratory Pattern Regular Blood Pressure [Right Arm] 137/86 137/86 Blood Pressure Mean [Right Arm] 103 103 Pulse Oximetry 92 94 Oxygen Delivery Method Room Air Nasal Cannula Oxygen Flow Rate 2 Laboratory Data 07/15/22 11:50 07/15/22 11:50 Lab Results 07/15/22 07/15/22 07/15/22 Range/Units 11:50 11:50 11:50 WBC 15.76 H (4.8-10.8) K/ul RBC 5.19 (4.20-5.40) M/uL Hgb 14.6 (12.0-16.0) g/dl Hct 45.5 (37.0-47.0) % MCV 87.7 (80.0-100.0) fL MCH 28.1 (25.0-34.0) pg MCHC 32.1 (32.0-36.0) g/dL RDW Std Deviation 45.1 (36.4-46.3) fL RDW Coeff of Lilia 14.1 (11.5-14.5) % Plt Count 302 (130-400) K/uL MPV 10.4 (9.4-12.4) fL Immature Gran % (Auto) 0.6 % Neut % (Auto) 71.9 % Lymph % (Auto) 19.6 % Clinch % (Auto) 5.8 % Eos % (Auto) 1.6 % Baso % (Auto) 0.5 % Neut # (Auto) 11.34 H (1.40-6.50) K/uL Lymph # (Auto) 3.09 (1.2-3.4) K/uL Clinch # (Auto) 0.91 H (0.11-0.59) K/uL Eos # (Auto) 0.25 (0-0.50) K/uL Baso # (Auto) 0.08 (0-0.2) K/uL Immature Gran # (Auto) 0.09 (0.01-0.20) K/uL PT (9.0-12.0) Seconds INR (0.9-1.1) APTT (21.0-31.0) Seconds PTT Ratio Sodium 139 (136-145) mmol/L Potassium 4.0 (3.5-5.1) mmol/L Chloride 101 (98-107) mmol/L Carbon Dioxide 30 (21-32) mmol/L Anion Gap 8 (3-11) BUN 12 (6-23) mg/dl Creatinine 0.61 (0.6-1.2) mg/dl Est Cr Clr Drug Dosing Not Reportable Est GFR ( Amer) 111.8 ml/min Est GFR (Non-Af Amer) 96.5 ml/min BUN/Creatinine Ratio 19.7 (10-20) Glucose 79 (70-99(Fasting)) mg/dl Calcium 9.2 (8.6-10.3) mg/dl Magnesium 1.9 (1.7-2.4) mg/dl Total Bilirubin 1.0 (0.2-1.0) mg/dl AST 19 (13-39) U/L ALT 31 (7-52) U/L Alkaline Phosphatase 92 (34-104) U/L Troponin I High Sens 4.1 (0-14) pg/ml Total Protein 7.2 (6.0-8.3) gm/dl Albumin 4.1 (3.4-5.0) gm/dl Globulin 3.1 (2.5-4.0) gm/dl Albumin/Globulin Ratio 1.3 (0.9-2) Adenovirus (PCR) Not Detected (NotDetected) B. pertussis DNA (PCR) Not Detected (NotDetected) B.parapertussis DNA PCR Not Detected (NotDetected) C. pneumoniae DNA (PCR) Not Detected (NotDetected) Coronavirus OC43 (PCR) Not Detected (NotDetected) Coronavirus HKU1 (PCR) Not Detected (NotDetected) Coronavirus 229E (PCR) Not Detected (NotDetected) SARS-CoV-2 (PCR) Not Detected (NotDetected) Coronavirus NL63 (PCR) Not Detected (NotDetected) Human Metapneumovir PCR Not Detected (NotDetected) Influenza Type A (PCR) Not Detected (NotDetected) Influenza Type B (PCR) Not Detected (NotDetected) M. pneumoniae (PCR) Not Detected (NotDetected) Parainfluenza 1 (PCR) Not Detected (NotDetected) Parainfluenza 2 (PCR) Not Detected (NotDetected) Parainfluenza 3 (PCR) Not Detected (NotDetected) Parainfluenza 4 (PCR) Not Detected (NotDetected) RSV (PCR) Not Detected (NotDetected) Entero/Rhino (PCR) DETECTED A* (NotDetected) 07/15/22 07/15/22 Range/Units 12:38 17:11 WBC (4.8-10.8) K/ul RBC (4.20-5.40) M/uL Hgb (12.0-16.0) g/dl Hct (37.0-47.0) % MCV (80.0-100.0) fL MCH (25.0-34.0) pg MCHC (32.0-36.0) g/dL RDW Std Deviation (36.4-46.3) fL RDW Coeff of Lilia (11.5-14.5) % Plt Count (130-400) K/uL MPV (9.4-12.4) fL Immature Gran % (Auto) % Neut % (Auto) % Lymph % (Auto) % Clinch % (Auto) % Eos % (Auto) % Baso % (Auto) % Neut # (Auto) (1.40-6.50) K/uL Lymph # (Auto) (1.2-3.4) K/uL Clinch # (Auto) (0.11-0.59) K/uL Eos # (Auto) (0-0.50) K/uL Baso # (Auto) (0-0.2) K/uL Immature Gran # (Auto) (0.01-0.20) K/uL PT 11.2 (9.0-12.0) Seconds INR 1.0 (0.9-1.1) APTT 27.4 (21.0-31.0) Seconds PTT Ratio 1.0 Sodium (136-145) mmol/L Potassium (3.5-5.1) mmol/L Chloride (98-107) mmol/L Carbon Dioxide (21-32) mmol/L Anion Gap (3-11) BUN (6-23) mg/dl Creatinine (0.6-1.2) mg/dl Est Cr Clr Drug Dosing Est GFR ( Amer) ml/min Est GFR (Non-Af Amer) ml/min BUN/Creatinine Ratio (10-20) Glucose (70-99(Fasting)) mg/dl Calcium (8.6-10.3) mg/dl Magnesium Cancelled (1.7-2.4) mg/dl Total Bilirubin (0.2-1.0) mg/dl AST (13-39) U/L ALT (7-52) U/L Alkaline Phosphatase (34-104) U/L Troponin I High Sens (0-14) pg/ml Total Protein (6.0-8.3) gm/dl Albumin (3.4-5.0) gm/dl Globulin (2.5-4.0) gm/dl Albumin/Globulin Ratio (0.9-2) Adenovirus (PCR) (NotDetected) B. pertussis DNA (PCR) (NotDetected) B.parapertussis DNA PCR (NotDetected) C. pneumoniae DNA (PCR) (NotDetected) Coronavirus OC43 (PCR) (NotDetected) Coronavirus HKU1 (PCR) (NotDetected) Coronavirus 229E (PCR) (NotDetected) SARS-CoV-2 (PCR) (NotDetected) Coronavirus NL63 (PCR) (NotDetected) Human Metapneumovir PCR (NotDetected) Influenza Type A (PCR) (NotDetected) Influenza Type B (PCR) (NotDetected) M. pneumoniae (PCR) (NotDetected) Parainfluenza 1 (PCR) (NotDetected) Parainfluenza 2 (PCR) (NotDetected) Parainfluenza 3 (PCR) (NotDetected) Parainfluenza 4 (PCR) (NotDetected) RSV (PCR) (NotDetected) Entero/Rhino (PCR) (NotDetected) Administered Medications Albuterol (Albut/Ipratrop 3mg/0.5mg Neb 3 Ml Vial) 3 ml NEB Q4R [facility]; Protocol Stop: 08/14/22 20:36 Last Admin: 07/16/22 14:18 Dose: 3 ml Documented By: [id number] Admin: 07/16/22 11:45 Dose: 3 ml Documented By: Admin: 07/16/22 07:47 Dose: Not Given Documented By: [id number] Admin: 07/16/22 01:59 Dose: Not Given Documented By: Admin: 07/15/22 22:32 Dose: Not Given Documented By: Admin: 07/15/22 21:11 Dose: Not Given Documented By: KATI Aspirin (Aspirin 81 Mg Ectab) 162 mg PO DAILY [place] Stop: 08/15/22 08:59 Last Admin: 07/16/22 08:38 Dose: 162 mg Documented By: JESICA Azithromycin (Azithromycin 250 Mg Tab) 500 mg PO QAM [facility] Stop: 07/18/22 20:36 Last Admin: 07/16/22 08:39 Dose: 500 mg Documented By: Admin: 07/15/22 21:42 Dose: 500 mg Documented By: RADHA Budesonide (Budesonide 0.5 Mg/2 Ml Vial (Pulmicort)) 0.5 mg NEB BIDR [facility] Stop: 08/14/22 20:36 Last Admin: 07/16/22 07:47 Dose: 0.5 mg Documented By: [id number] Admin: 07/15/22 21:11 Dose: 0.5 mg Documented By: KATI Buspirone HCl (Buspirone 5 Mg Tab) 5 mg PO BID [place] Stop: 08/14/22 20:59 Last Admin: 07/16/22 08:39 Dose: 5 mg Documented By: Admin: 07/15/22 21:42 Dose: 5 mg Documented By: RADHA Doxycycline Hyclate (Doxycycline Hyclate 50 Mg Cap) 50 mg PO DAILY [place] Stop: 08/15/22 08:59 Last Admin: 07/16/22 08:38 Dose: 50 mg Documented By: JESICA Enoxaparin Sodium (Enoxaparin Inj 40 Mg/0.4 Ml Syr) 40 mg SQ QAM [facility] Stop: 08/15/22 08:59 Last Admin: 07/16/22 08:40 Dose: 40 mg Documented By: JESICA Flecainide Acetate (Flecainide Acetate 100 Mg Tablet) 50 mg PO BID [place] Stop: 08/14/22 20:59 Last Admin: 07/16/22 08:39 Dose: 50 mg Documented By: Admin: 07/15/22 21:42 Dose: 50 mg Documented By: RADHA Formoterol Fumarate (Formoterol 20 Mcg/2 Ml Vial) 20 mcg NEB BID [place] Stop: 08/14/22 20:59 Last Admin: 07/16/22 07:47 Dose: 20 mcg Documented By: [id number] Admin: 07/15/22 21:11 Dose: 20 mcg Documented By: KATI Methylprednisolone 40 mg/ (Syringe) 0.64 mls @ 1.5 mls/min IV TID [facility] Stop: 08/15/22 08:59 Last Admin: 07/16/22 14:09 Dose: 1.5 mls/min Documented By: Admin: 07/16/22 10:50 Dose: 1.5 mls/min Documented By: JESICA Miscellaneous (Synthroid 175 Mcg ~ Order Awaiting Action) 1 each N/A QS [facility] Stop: 08/15/22 00:00 Last Admin: 07/16/22 14:30 Dose: Not Given Documented By: Admin: 07/16/22 08:15 Dose: Not Given Documented By: Admin: 07/15/22 23:00 Dose: Not Given Documented By: RADHA Pantoprazole Sodium (Pantoprazole 40 Mg Tab) 40 mg PO BID [facility] Stop: 08/14/22 20:59 Last Admin: 07/16/22 08:39 Dose: 40 mg Documented By: Admin: 07/15/22 21:43 Dose: 40 mg Documented By: RADHA Sodium Chloride (Sodium Chlor 7% 4 Ml Neb) 4 ml NEB BIDR [facility] Stop: 08/14/22 20:36 Last Admin: 07/16/22 07:47 Dose: 4 ml Documented By: [id number] Admin: 07/15/22 21:11 Dose: Not Given Documented By: KATI Verapamil HCl (Verapamil Hcl 40 Mg Tab) 40 mg PO BID [facility] Stop: 08/14/22 20:59 Last Admin: 07/16/22 08:39 Dose: 40 mg Documented By: Admin: 07/15/22 21:42 Dose: 40 mg Documented By: RADHA Discontinued Medications Albuterol (Albut/Ipratrop 3mg/0.5mg Neb 3 Ml Vial) 12 ml NEB ONE ONE; Protocol Stop: 07/15/22 12:48 Last Admin: 07/15/22 13:00 Dose: 12 ml Documented By: TOMA Sodium Chloride (Nss 1000ml) 1,000 mls @ 125 mls/hr IV .Q8H [facility] Stop: 08/14/22 15:29 Last Infusion: 07/15/22 20:41 Dose: 0 mls/hr Documented By: Admin: 07/15/22 15:54 Dose: 125 mls/hr Documented By: TOMA Methylprednisolone 40 mg/ (Syringe) 0.64 mls @ 1.5 mls/min IV BID [place] Stop: 08/14/22 20:59 Last Admin: 07/15/22 21:41 Dose: 1.5 mls/min Documented By: RADHA Ioversol (Optiray 320 500ml) 114 ml IV ONCE ONE Stop: 07/15/22 15:50 Last Admin: 07/15/22 15:50 Dose: 114 ml Documented By: NELLIE Methylprednisolone (Methylprednisolone 125 Mg/2 Ml Vial) 60 mg IV NOW STA Stop: 07/15/22 12:48 Last Admin: 07/15/22 13:00 Dose: 60 mg Documented By: TOMA Imaging Data Radiologist's Impression: Chest X-Ray 07/15/22 11:47 SINGLE VIEW CHEST CLINICAL HISTORY: Atypical chest pain. FINDINGS: An AP, portable, upright chest radiograph is compared to study dated 10/31/2019. The cardiomediastinal silhouette is unremarkable. The lungs and pleural spaces are clear noting mild bibasilar atelectasis. No pneumothorax is seen. The skeletal structures are osteopenic. The bony thorax is grossly intact. IMPRESSION: No active disease in the chest. ACT 112: Negative or not required by law. Electronically signed by: Corey Washington M.D. 07/15/2022 12:21 PM Venous Doppler Study 07/15/22 14:05 ULTRASOUND RIGHT LOWER EXTREMITY VENOUS CLINICAL HISTORY: Calf pain. COMPARISON STUDY: Right lower extremity venous ultrasound dated 03/08/2019 TECHNIQUE: Real-time, grayscale, and color Doppler sonography of the deep veins of the right lower extremity was performed from the inguinal crease to the calf. Compression and augmentation were utilized. FINDINGS: There is no sonographic evidence of deep venous thrombosis identified in the right lower extremity. The common femoral, superficial femoral, and popliteal veins are patent and normally compressible. The greater saphenous vein and the profunda femoris vein at the junction with the common femoral vein are clear. The visualized calf veins are patent. There are superficial venous vari cosities identified in the calf at the site of discomfort. These vessels are patent. IMPRESSION: 1. There is no sonographic evidence of deep venous thrombosis identified in the right lower extremity. 2. Superficial venous varicosities are seen in the right calf at the site of discomfort. ACT 112: Negative or not required by law. Electronically signed by: Corey Washington M.D. 07/15/2022 2:56 PM Discharge Plan Visit Data Chief Complaint: Shortness of Breath/Dyspnea Stated Complaint: SOB, COUGHING UP MUCUS ED Provider: Kerri Garduno Discharge Problem: Dyspnea, Hypoxia, Bronchiectasis, URI (upper respiratory infection), Hemoptysis Patient Disposition: Admitted As Inpatient Discharge Instructions Interventions: ED Discharge Assessment Last Done: 07/15/22 20:06
[2022-07-15] MEDS ORDERED: OPTIRAY 320 500ml IV ONE (15:49)
--- NOTE | 2022-07-15 16:11 | CT Scan Report ---
CT ANGIOGRAM OF THE CHEST CLINICAL HISTORY: Hemoptysis. Atypical chest pain. COMPARISON STUDY: Chest x-ray dated 07/15/2022. Chest CT dated 03/08/2019. TECHNIQUE: Following the IV administration of 114 cc of Optiray 320, CT angiogram of the chest was pe rformed from the upper abdomen to the thoracic inlet utilizing the pulmonary embolus protocol. Images are reviewed in the axial, sagittal, and coronal planes. 3-D MIPS images are created and assessed. I V contrast was administered without complication. A dose lowering technique was utilized adhering to the principles of ALARA. CT DOSE: 504.96 mGy.cm FINDINGS: Thyroid: Atrophic. Thoracic aorta: There is moderate atherosclerotic calcification of the thoracic aorta. There is aneur ysmal dilatation of the ascending thoracic aorta which measures up to 4.4 cm in diameter. The remaind er of the thoracic aorta is normal in caliber, and the arch demonstrates 4-vessel variant anatomy. No dissection is seen. Pulmonary vasculature: The main pulmonary arteries are dilated suggesting pulmonary artery hypertensi on.. There are no filling defects identified in main, lobar, or segmental pulmonary branches to sugge st pulmonary embolus. Heart: The heart is normal in size and without pericardial effusion. Lungs and pleural spaces: There is no lobar consolidation or pleural effusion. Scarring/atelectasis i s noted at the lung bases. The trachea and central airways are clear. There are numerous (at least 8) solid and subsolid nodules scattered throughout both lungs. The majority of these are unchanged from 03/08/2019. There is a new groundglass nodule in the left upper lobe seen on image #178 which measur es 7 mm. A subsolid nodules in the anterior right upper lobe on image #160 measures up to 9 mm. Addit ional nodules in the right upper lobe on image #218, the right lower lobe on images #165 and #132, an d the left upper lobe on image #175 are unchanged. There are scattered calcified granulomas. Mediastinum: There is no mediastinal lymphadenopathy. Vilma: Clear. Axillae: There is no axillary lymphadenopathy. Upper abdomen: There is a tiny hiatal hernia. A 3 mm nonobstructing calculus is seen in the upper cyndi e of left kidney. There is a 1.8 cm right lobe hepatic cyst. A 1.3 cm cyst is seen in the upper pole of the left kidney. Skeletal structures: The skeletal structures are osteopenic. No lytic or blastic bony lesions are see n. IMPRESSION: 1. There is no evidence of pulmonary embolus in the main, lobar, or segmental pulmonary arteries. 2. There is no airspace consolidation typical for pneumonia or pleural effusion. 3. There is aneurysmal dilatation of the ascending thoracic aorta which measures 4.4 cm in diameter. 4. There are solid and subsolid pulmonary nodules as above, at least one of which is new from 019. Follow-up is recommended as per the Fleischner criteria. See below. 5. Left-sided nephrolithiasis. 6. Additional findings as above. Please refer to below summary of Fleischner criteria recommendations for follow-up of incidental CT n odules (Radha Aggarwal, Guidelines for management of small pulmonary nodules detected on CT scans: A sta tement from the Fleischner Society, Radiology 237: [phone].) SOLID NODULES Solitary nodule size: <6 mm * low risk patients: no follow-up needed * high risk patients: optional CT at 12 months Solitary nodule size: 6-8 mm * low risk patients: follow-up at 6-12 months, then consider further follow-up at 18-24 months * high risk patients: initial follow-up CT at 6-12 months and then at 18-24 months if no change Solitary nodule size: >8 mm * either low or high risk patients - consider follow-up CT at 3 months, and/or CT-PET, and/or biopsy Multiple nodules size: <6 mm * low risk patients: no routine follow-up * high risk patients: optional CT at 12 months Multiple nodules size: 6-8 mm * low risk patients: follow-up at 3-6 months, then consider further follow-up at 18-24 months * high risk patients: follow-up at 3-6 months, then at 18-24 months if no change Multiple nodules size: >8 mm * low risk patients: follow-up at 3-6 months, then consider further follow-up at 18-24 months * high risk patients: follow-up at 3-6 months, then at 18-24 months if no change Note: newly detected indeterminate nodule in persons 35 years of age or older. * low risk patients: minimal or absent history of smoking and/or other known risk factors * high risk patients: history of smoking or of other known risk factors (e.g. first degree relative with lung cancer, or exposure to asbestos, radon, uranium) * if a nodule up to 8 mm is partly solid or is ground glass further follow-up is required after 24 m onths to exclude possible slow growing adenocarcinoma (GILES) SUBSOLID NODULES Solitary pure ground-glass nodule * nodule size <6 mm - no CT follow-up required * nodule size >=6 mm - follow-up CT at 6-12 months, then every 2 years until 5 years Solitary part-solid nodule * nodule size <6 mm - no CT follow-up required * nodule size >=6 mm - follow-up CT at 3-6 months. If unchanged, and solid component remains <6 mm, then annual follow-up for 5 years Multiple subsolid nodules * nodule size <6 mm - follow-up CT at 3-6 months, consider further follow-up at 2 and 4 years if sta ble * nodule size >=6 mm - follow-up CT at 3-6 months, subsequent management based on the most suspiciou s nodule(s) ACT 112: Negative or not required by law. Electronically signed by: Corey Washington M.D. 07/15/2022 4:09 PM
--- NOTE | 2022-07-15 17:11 | History & Physical Report ---
Date of Service July 15, 2022 Assessment & Plan (1) Acute respiratory failure with hypoxia: Plan: Baseline room air during the day time, 2LPM O2 at night Current hypoxia and respiratory distress secondary to asthma exacerbation with bronchiectasis in setting of entero/rhinovirus Suspect leukocytosis due to recent steroid use. Procalcitonin negative and no consolidation on CT chest to suggest bacterial pneumonia. (2) Asthma exacerbation: Plan: Solu-medrol 40mg IV BID Duoneb q4h Formoterol/budesonide NEB BID Hypertonic saline NEB BID Azithromycin 500mg PO for three days (3) Enterovirus infection: Plan: Isolation contact precautions (4) Hypothyroid: Plan: Add TSH to prior labs Continue levothyroxine 175 mcg PO daily (5) Afib: Plan: Paroxysmal. Currently in NSR with premature supraventricular complexes with definitive p waves present. Not on anticoagulation chronically presumably due to low [id number] - 1 Continue flecainide and verapamil (6) GERD (gastroesophageal reflux disease): Plan: Switch omeprazole to pantoprazole per hospital formulary (7) Rosacea conjunctivitis: Plan: History of such Continue doxycycline for chronic suppression Plan VTE Prophylaxis - Lovenox 40 mg SQ daily Diet - regular Disposition - admit to med/surg Admission and Anticipated Discharge Date Admission Date: July 15, 2022 History of Present Illness Chief Complaint: Shortness of breath Primary Care Provider: DO Kamille Odonnellemiliano Hargrove is a 61 year old with asthma and bronchiectasis who presents to the ER with shortness of breath. She reports going to a baseball game and getting more short of breath 8 days ago. By the time she got home she was wheezing. She called her gas utility worker and spoke to the consulting sme physician who prescribed Augmentin and prednisone (40mg PO daily for 5 days) which she picked up and started the following day. This helped somewhat with using her albuterol and hypertonic saline nebs twice a day but she started to get worse again after she stopped the prednisone. Her cough has also been getting worse and she is coughing up yellow sputum. No fever or chills. No chest pain, orthopnea, PND or sinus pain. Allergies Allergy/AdvReac Type Severity Reaction Status Date / Time codeine Allergy Mild SEVERE Verified 07/15/22 13:13 STOMACH PAIN, COLD AND CLAMMY. adhesive Allergy Unknown rash Verified 07/15/22 13:13 chlorhexidine AdvReac Intermediate ITCHING Verified 07/15/22 13:13 AND BURNING AT SITE OF USE aspirin AdvReac Mild too much Verified 07/15/22 13:13 aspirin causes stomach bleed NSAIDS (Non-Steroidal AdvReac Unknown gastric Verified 07/15/22 13:13 Anti-Inflamma bleeding Home Medications Medication Instructions Recorded Confirmed Type omega 7-krd-gom-fish oil 1,000 mg 1 cap PO DAILY 02/22/18 07/15/22 History (120 mg-180 mg) capsule (Fish Oil) cholecalciferol (vitamin D3) 50 2,000 unit PO DAILY 12/14/18 07/15/22 History mcg (2,000 unit) tablet docusate sodium 100 mg capsule 100 mg PO DAILY PRN Constipation 12/14/18 07/15/22 History omeprazole magnesium 20 mg 40 mg PO BID 12/19/18 07/15/22 History tablet,delayed release aspirin 81 mg tablet,delayed 162 mg PO DAILY 02/02/19 07/15/22 History release (Diane Low Dose Aspirin) albuterol sulfate 2.5 mg/3 mL 2.5 mg (3 mL) inhalation QID PRN 02/21/19 07/15/22 Rx (0.083 %) solution for nebulization shortness of breath or wheezing #180 vials fluticasone 500 mcg-salmeterol 50 1 puffs inhalation BID #180 ea 06/24/19 07/15/22 Rx mcg/dose blistr powdr for inhalation (Advair Diskus) tiotropium bromide 2.5 2 puffs inhalation DAILY #3 06/24/19 07/15/22 Rx mcg/actuation mist for inhalation Inhalers (Spiriva Respimat) albuterol sulfate 90 mcg/actuation 2 puff inhalation Q4H PRN Wheezing 08/20/19 07/15/22 Rx aerosol inhaler (Ventolin HFA) #54 grams Oxygen Home 04/25/22 04/25/22 History buspirone 5 mg tablet 5 mg PO BID 04/25/22 07/15/22 History flecainide 50 mg tablet 50 mg PO Q12H 04/25/22 07/15/22 History clobetasol 0.05 % topical cream 1 applic topical DAILY PRN Itching 07/15/22 07/15/22 History doxycycline hyclate 50 mg capsule 50 mg PO DAILY 07/15/22 07/15/22 History levothyroxine 175 mcg tablet 175 mcg PO HS 07/15/22 07/15/22 History (Synthroid) nystatin 100,000 unit/gram topical 1 applic topical BID PRN Unknown 07/15/22 07/15/22 History powder verapamil 40 mg tablet 40 mg PO BID 07/15/22 07/15/22 History Past Med/Surg History Medical History (Updated 07/15/22 @ 22:41 by Sam Otero MD) Afib Asthma Chronic cough Endometriosis Enlarged thoracic aorta GERD (gastroesophageal reflux disease) Hypothyroid IBS (irritable bowel syndrome) Intrinsic asthma Lichen planus Lichen sclerosus Moderate persistent asthma Rosacea conjunctivitis Vertigo Surgical History History of breast biopsy History of cholecystectomy History of foot surgery History of hysterectomy History of laparoscopy Family History Grandfather (Maternal) Colorectal cancer Sister Colorectal cancer Denies family history of Ovarian cancer Breast cancer Social History Smoking Status: Never smoker Second Hand Exposure: No; Do You Dip or Chew Tobacco: No; Hx Alcohol Use: Yes Hx Substance Use: No Preferred Language: Ethiopian Communication Ability: Effective Nurse Outreach Case Manager Required: No Beliefs That Will Affect Care: None Current Living Situation: Spouse Feels Safe at Home: Yes Assistive Devices: Glasses and Oxygen - at Night Review of Systems Review of Systems: All systems reviewed & are unremarkable except as noted in HPI & below Physical Exam Constitutional: well developed and + acute distress (respiratory); + not well nourished Eyes: + anicteric sclerae; normal pupil size ENMT: external ear and nose normal, oropharynx normal Respiratory: normal respiratory effort, + labored breathing and + uses accessory muscles; not tachypneic Cardiovascular: RRR, no murmur, no edema Gastrointestinal (Abdomen): normal bowel sounds, soft, nontender, no hepatosplenomegaly Musculoskeletal: no cyanosis or clubbing, extremities motor strength 5/5 Skin: no rashes, warm and dry Neurologic: moves all extremities and awake; not confused Psychiatric: A+Ox3, euthymic affect Results & Data Results & Data Vital Signs (Past 12 Hours) Vital Signs Temp Pulse Pulse Resp BP BP Pulse Ox 07/15/22 16:32 82 07/15/22 15:52 86 18 137/86 92 07/15/22 13:07 81 22 126/79 100 07/15/22 12:33 84 07/15/22 12:15 97 07/15/22 12:15 07/15/22 12:15 85 24 128/77 97 07/15/22 12:05 95 07/15/22 11:43 37 C 93 H 20 144/92 H 96 O2 Del Method 07/15/22 16:32 07/15/22 15:52 Room Air 07/15/22 13:07 Nebulizer 07/15/22 12:33 07/15/22 12:15 Room Air 07/15/22 12:15 Room Air 07/15/22 12:15 Room Air 07/15/22 12:05 Room Air 07/15/22 11:43 Room Air Laboratory Results Abnormal lab results 07/15/22 07/15/22 Range/Units 11:50 11:50 WBC 15.76 H (4.8-10.8) K/ul Neut # (Auto) 11.34 H (1.40-6.50) K/uL [place] # (Auto) 0.91 H (0.11-0.59) K/uL Entero/Rhino (PCR) DETECTED A* (NotDetected) Diagnostic Findings SINGLE VIEW CHEST CLINICAL HISTORY: Atypical chest pain. FINDINGS: An AP, portable, upright chest radiograph is compared to study dated 10/31/2019. The cardiomediastinal silhouette is unremarkable. The lungs and pleural spaces are clear noting mild bibasilar atelectasis. No pneumothorax is seen. The skeletal structures are osteopenic. The bony thorax is grossly intact. IMPRESSION: No active disease in the chest. CT ANGIOGRAM OF THE CHEST CLINICAL HISTORY: Hemoptysis. Atypical chest pain. COMPARISON STUDY: Chest x-ray dated 07/15/2022. Chest CT dated 03/08/2019. TECHNIQUE: Following the IV administration of 114 cc of Optiray 320, CT angiogram of the chest was performed from the upper abdomen to the thoracic inlet utilizing the pulmonary embolus protocol. Images are reviewed in the axial, sagittal, and coronal planes. 3-D MIPS images are created and assessed. IV contrast was administered without complication. A dose lowering technique was utilized adhering to the principles of ALARA. CT DOSE: 504.96 mGy.cm FINDINGS: Thyroid: Atrophic. Thoracic aorta: There is moderate atherosclerotic calcification of the thoracic aorta. There is aneurysmal dilatation of the ascending thoracic aorta which measures up to 4.4 cm in diameter. The remainder of the thoracic aorta is normal in caliber, and the arch demonstrates 4-vessel variant anatomy. No dissection is seen. Pulmonary vasculature: The main pulmonary arteries are dilated suggesting pulmonary artery hypertension.. There are no filling defects identified in main, lobar, or segmental pulmonary branches to suggest pulmonary embolus. Heart: The heart is normal in size and without pericardial effusion. Lungs and pleural spaces: There is no lobar consolidation or pleural effusion. Scarring/atelectasis is noted at the lung bases. The trachea and central airways are clear. There are numerous (at least 8) solid and subsolid nodules scattered throughout both lungs. The majority of these are unchanged from 03/08/2019. There is a new groundglass nodule in the left upper lobe seen on image #178 which measures 7 mm. A subsolid nodules in the anterior right upper lobe on image #160 measures up to 9 mm. Additional nodules in the right upper lobe on image #218, the right lower lobe on images #165 and #132, and the left upper lobe on image #175 are unchanged. There are scattered calcified granulomas. Mediastinum: There is no mediastinal lymphadenopathy. Vilma: Clear. Axillae: There is no axillary lymphadenopathy. Upper abdomen: There is a tiny hiatal hernia. A 3 mm nonobstructing calculus is seen in the upper pole of left kidney. There is a 1.8 cm right lobe hepatic cyst. A 1.3 cm cyst is seen in the upper pole of the left kidney. Skeletal structures: The skeletal structures are osteopenic. No lytic or blastic bony lesions are seen. IMPRESSION: 1. There is no evidence of pulmonary embolus in the main, lobar, or segmental pulmonary arteries. 2. There is no airspace consolidation typical for pneumonia or pleural effusion. 3. There is aneurysmal dilatation of the ascending thoracic aorta which measures 4.4 cm in diameter. 4. There are solid and subsolid pulmonary nodules as above, at least one of which is new from 03/08/2019. Follow-up is recommended as per the Fleischner criteria. See below. 5. Left-sided nephrolithiasis. 6. Additional findings as above. ULTRASOUND RIGHT LOWER EXTREMITY VENOUS CLINICAL HISTORY: Calf pain. COMPARISON STUDY: Right lower extremity venous ultrasound dated 03/08/2019 TECHNIQUE: Real-time, grayscale, and color Doppler sonography of the deep veins of the right lower extremity was performed from the inguinal crease to the calf. Compression and augmentation were utilized. FINDINGS: There is no sonographic evidence of deep venous thrombosis identified in the right lower extremity. The common femoral, superficial femoral, and popliteal veins are patent and normally compressible. The greater saphenous vein and the profunda femoris vein at the junction with the common femoral vein are clear. The visualized calf veins are patent. There are superficial venous varicosities identified in the calf at the site of discomfort. These vessels are patent. IMPRESSION: 1. There is no sonographic evidence of deep venous thrombosis identified in the right lower extremity. 2. Superficial venous varicosities are seen in the right calf at the site of discomfort. Medications Administered ER Medications Given: NSS @ 125ml/hr Duoneb 12ml NEB Solu-medrol 60mg IV ECG Rate (beats per minute): 99 Rhythm: sinus tachycardia Findings: + other (premature supraventricular complexes) Comparison ECG Date: from (March 08, 2019) Change: the following changes noted (premature supraventricular complexes are now present) Code Status & VTE Plan Code Status Full VTE Prophylaxis Plan VTE Prophylaxis will be ordered: Yes PG Care Time/CCT Total # of Minutes Spent Total Time Spent with Patient: Total time spent is greater than 50% in coordination of care (as documented) at patient's floor/unit and/or counseling patient: Coding Level of Care Code 61691 INT INP/OBS CARE 2/55MIN Diagnoses Acute respiratory failure with hypoxia J96.01 Asthma exacerbation J45.901 Enterovirus infection B34.1 Hypothyroid E03.9 Hypothyroidism type: unspecified Afib I48.0 Atrial fibrillation type: paroxysmal GERD (gastroesophageal reflux disease) K21.9 Esophagitis presence: esophagitis presence not specified Rosacea conjunctivitis L71.8; H10.829 (4) Hypothyroid Hypothyroidism type: unspecified Qualified Code(s): E03.9 - Hypothyroidism, unspecified (5) Afib Atrial fibrillation type: paroxysmal Qualified Code(s): I48.0 - Paroxysmal atrial fibrillation (6) GERD (gastroesophageal reflux disease) Esophagitis presence: esophagitis presence not specified Qualified Code(s): K21.9 - Gastro-esophageal reflux disease without esophagitis
[2022-07-15 19:49] LABS: Magnesium 1.9 mg/dl (1.7-2.4)
[2022-07-15] MEDS ORDERED: ACETAMINOPHEN 325 MG TAB PO PRN (20:37)
[2022-07-15] MEDS ORDERED: DOCUSATE SODIUM 100 MG CAP PO PRN (20:37)
[2022-07-15] MEDS ORDERED: methylPREDNISolone 40 MG in SYRINGE 0 ML IV SCH (21:00)
[2022-07-15] MEDS: BUDESONIDE 0.5 MG/2 ML VIAL (PULMICORT) NEB SCH (21:11)
[2022-07-15] MEDS: SODIUM CHLOR 7% 4 ML NEB NEB SCH ×2 (21:11)
[2022-07-15] MEDS: ALBUT/IPRATROP 3MG/0.5MG NEB 3 ML VIAL NEB SCH ×2 (21:11→22:32)
[2022-07-15] MEDS: FORMOTEROL 20 MCG/2 ML VIAL NEB SCH (21:11)
[2022-07-15] MEDS: AZITHROMYCIN 250 MG TAB PO SCH (21:42)
[2022-07-15] MEDS: VERAPAMIL HCL 40 MG TAB PO SCH (21:42)
[2022-07-15] MEDS: busPIRone 5 MG TAB PO SCH (21:42)
[2022-07-15] MEDS: FLECAINIDE ACETATE 100 MG TABLET PO SCH (21:42)
[2022-07-15] MEDS: PANTOprazole 40 MG TAB PO SCH (21:43)
--- NOTE | 2022-07-15 22:30 | Electrocardiogram Report ---
Test Reason : Blood Pressure : / mmHG Vent. Rate : 099 BPM Atrial Rate : 099 BPM P-R Int : 158 ms QRS Dur : 078 ms QT Int : 358 ms P-R-T Axes : 000 026 034 degrees QTc Int : 459 ms Sinus rhythm with Premature supraventricular complexes Otherwise normal ECG When compared with ECG of 08-MAR-2019 11:40, Premature supraventricular complexes are now Present Confirmed by Kennedy Wilson ([id number]) on 07/15/2022 10:30:41 PM Referred By: Shahnaz Green Confirmed By:Kennedy Wilson
[2022-07-16] MEDS: ALBUT/IPRATROP 3MG/0.5MG NEB 3 ML VIAL NEB SCH ×6 (01:59→23:30)
--- NOTE | 2022-07-16 07:46 | Hospitalist Progress Note ---
Date of Service July 16, 2022 Assessment & Plan (1) Acute respiratory failure with hypoxia: Plan: Recent rx for Augmentin/prednisone 40mg x 5 days (but did report taking some 30mg and dropping off, tapers in the past w/ Dr Coombs but wasn't rx as such). Feeling better than developed acute worsening. Does use RA during the day but 2L at night. No sleep apnea on recent study reported Seen at Dr Vazquez's office w/ wheezing/hypoxia in office and instructed to go to the ER for care/treatment of such Hypoxia multifactorial, asthma exacerbation w/ bronchiectasis in setting of entero/rhinovirus. CT chest w/o consolidation to suggest bacteria PNA at present. Procal negative. Afebrile WBC likely from steroid use Azithromycin x 3 days ordered Placed on Solumedrol 40mg IV BID -- on 3.5 L this morning w/ diffuse wheezing however did report feeling slightly improved. Increased to TID dosing for now, monitor response Continue Duoneb q4h, formoterol/budesonide nebs BID as well as hypertonic saline as she uses at home. 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 Also w/ stressors including daughter w/ mass in abdomen requiring surgery) (2) Asthma exacerbation: Plan: Solumedrol increased to TID for now, monitor Continue nebulizers/inhalers as above Azitho ordered x 3 days (recently completed course Augmentin) (3) Enterovirus infection: Plan: Isolation contact precautions tx as outlined above, supportive care (4) Hypothyroid: Plan: Add TSH to prior labs -- wnl Continue Synthroid 175mcg daily -- NEEDS NAME BRAND. Will see if someone able to bring in to her (5) Afib: Plan: Paroxysmal. Currently in NSR with premature supraventricular complexes with definitive p waves present. Not on anticoagulation chronically presumably due to low [id number] - 1 Continue flecainide and verapamil, is on aspirin but 162mg dose (6) GERD (gastroesophageal reflux disease): Plan: Continue PPI/hospital equivalent consider increasing to BID if any issues w/ reflux or at d/c while on taper (7) Rosacea conjunctivitis: Plan: History of such Continue doxycycline for chronic suppression Plan VTE Prophylaxis - Lovenox 40 mg SQ daily Continued inpatient stay, increased IV steroids Patient hopeful for dc tomorrow but will determine pending on repeat eval but likely would keep additional night to convert to PO and ensure stable on oral steroids will monitor on repeat eval Admission and Anticipated Discharge Date Admission Date: July 15, 2022 Supervising Physician Co-Signing Physician Notes The patient was not seen by me. The chart was reviewed. Case discussed with SUSIE Elizabeth. Agree with assessment and plan Subjective eval this morning, reporting feeling less tight still on oxygen, has some at home as uses 2L O2 at night. Sleep study w/o BERTIN or need for CPAP. She notes she was seen at Dr Clark office and was told by Shahnaz Green she should come to the hospital. She used to follow with Dr Coombs, then Dr Lima. Now follows with [facility] and has specialists also for cystic fibrosis given bronchiectasis similar treatments but she does not carry this diagnosis. She states she had called and was sent Augmentin/prednisone 40mg x 5 days but had some prednisone at home and was taking a couple days of 30mg a she previously with Dr Coombs had done slow tapers but then decided to drop that off and started feeling worse. Discussed +viral testing but also slow taper of steroids. Very wheezy on exam but able to talk in complete sentences for the most past but examined to be winded at the end of conversations. Occasional cough in the beginning and does have spells. 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 No fever/chills. Sputum white/clear and now cloudy clear in color. Discussed increasing IV steroids to TID and can increase further if needed to tackle this but will continue IV until significant improvement before converting to PO. Questions/concerns addressed at this time. Dealing with stress w/ daughter and tumor in her abdomen. Physical Exam Physical Exam: General: WD, chronically ill appearing female sitting up in bed, coryza, occasional coughing fit, no tachypnea HEENT: head normocephalic atraumatic, mmm, trachea midline Resp; diffuse wheezing, expiratory and inspiratory with rales, on 3.5L NC pr esently CV: RRR, no significant m/r/g, no pitting edema GI: +BS, soft/NT Neuro/Msk: no focal deficit Psych: AOx3, pleasant, talkative Results & Data Results & Data Vital Signs (Past 12 Hours) Vital Signs Temp Pulse Pulse Resp BP BP Pulse Ox 07/15/22 20:40 07/15/22 20:40 36.8 C 90 20 123/87 94 07/15/22 21:11 20 93 07/15/22 19:47 86 17 146/102 H 95 O2 Del Method O2 Flow Rate 07/15/22 20:40 Nasal Cannula 2 07/15/22 20:40 Nasal Cannula 2 07/15/22 21:11 Nasal Cannula 2 07/15/22 19:47 2 Laboratory Results 07/15/22 07/15/22 07/15/22 Range/Units 18:50 18:50 17:11 WBC (4.8-10.8) K/ul RBC (4.20-5.40) M/uL Hgb (12.0-16.0) g/dl Hct (37.0-47.0) % MCV (80.0-100.0) fL MCH (25.0-34.0) pg MCHC (32.0-36.0) g/dL RDW Std Deviation (36.4-46.3) fL RDW Coeff of Lilia (11.5-14.5) % Plt Count (130-400) K/uL MPV (9.4-12.4) fL Immature Gran % (Auto) % Neut % (Auto) % Lymph % (Auto) % Otoe % (Auto) % Eos % (Auto) % Baso % (Auto) % Neut # (Auto) (1.40-6.50) K/uL Lymph # (Auto) (1.2-3.4) K/uL Otoe # (Auto) (0.11-0.59) K/uL Eos # (Auto) (0-0.50) K/uL Baso # (Auto) (0-0.2) K/uL Immature Gran # (Auto) (0.01-0.20) K/uL PT (9.0-12.0) Seconds INR (0.9-1.1) APTT (21.0-31.0) Seconds PTT Ratio Sodium (136-145) mmol/L Potassium (3.5-5.1) mmol/L Chloride (98-107) mmol/L Carbon Dioxide (21-32) mmol/L Anion Gap (3-11) BUN (6-23) mg/dl Creatinine (0.6-1.2) mg/dl Est Cr Clr Drug Dosing Est GFR ( Amer) ml/min Est GFR (Non-Af Amer) ml/min BUN/Creatinine Ratio (10-20) Glucose (70-99(Fasting)) mg/dl Calcium (8.6-10.3) mg/dl Magnesium Cancelled (1.7-2.4) mg/dl Total Bilirubin (0.2-1.0) mg/dl AST (13-39) U/L ALT (7-52) U/L Alkaline Phosphatase (34-104) U/L Troponin I High Sens (0-14) pg/ml Total Protein (6.0-8.3) gm/dl Albumin (3.4-5.0) gm/dl Globulin (2.5-4.0) gm/dl Albumin/Globulin Ratio (0.9-2) Procalcitonin < 0.05 (0-0.5) ng/ml TSH 0.683 (0.300-4.500) uIu/ml Adenovirus (PCR) (NotDetected) B. pertussis DNA (PCR) (NotDetected) B.parapertussis DNA PCR (NotDetected) C. pneumoniae DNA (PCR) (NotDetected) Coronavirus OC43 (PCR) (NotDetected) Coronavirus HKU1 (PCR) (NotDetected) Coronavirus 229E (PCR) (NotDetected) SARS-CoV-2 (PCR) (NotDetected) Coronavirus NL63 (PCR) (NotDetected) Human Metapneumovir PCR (NotDetected) Influenza Type A (PCR) (NotDetected) Influenza Type B (PCR) (NotDetected) M. pneumoniae (PCR) (NotDetected) Parainfluenza 1 (PCR) (NotDetected) Parainfluenza 2 (PCR) (NotDetected) Parainfluenza 3 (PCR) (NotDetected) Parainfluenza 4 (PCR) (NotDetected) RSV (PCR) (NotDetected) Entero/Rhino (PCR) (NotDetected) 07/15/22 07/15/22 07/15/22 Range/Units 12:38 11:50 11:50 WBC (4.8-10.8) K/ul RBC (4.20-5.40) M/uL Hgb (12.0-16.0) g/dl Hct (37.0-47.0) % MCV (80.0-100.0) fL MCH (25.0-34.0) pg MCHC (32.0-36.0) g/dL RDW Std Deviation (36.4-46.3) fL RDW Coeff of Lilia (11.5-14.5) % Plt Count (130-400) K/uL MPV (9.4-12.4) fL Immature Gran % (Auto) % Neut % (Auto) % Lymph % (Auto) % Otoe % (Auto) % Eos % (Auto) % Baso % (Auto) % Neut # (Auto) (1.40-6.50) K/uL Lymph # (Auto) (1.2-3.4) K/uL Otoe # (Auto) (0.11-0.59) K/uL Eos # (Auto) (0-0.50) K/uL Baso # (Auto) (0-0.2) K/uL Immature Gran # (Auto) (0.01-0.20) K/uL PT 11.2 (9.0-12.0) Seconds INR 1.0 (0.9-1.1) APTT 27.4 (21.0-31.0) Seconds PTT Ratio 1.0 Sodium 139 (136-145) mmol/L Potassium 4.0 (3.5-5.1) mmol/L Chloride 101 (98-107) mmol/L Carbon Dioxide 30 (21-32) mmol/L Anion Gap 8 (3-11) BUN 12 (6-23) mg/dl Creatinine 0.61 (0.6-1.2) mg/dl Est Cr Clr Drug Dosing Not Reportable Est GFR ( Amer) 111.8 ml/min Est GFR (Non-Af Amer) 96.5 ml/min BUN/Creatinine Ratio 19.7 (10-20) Glucose 79 (70-99(Fasting)) mg/dl Calcium 9.2 (8.6-10.3) mg/dl Magnesium 1.9 (1.7-2.4) mg/dl Total Bilirubin 1.0 (0.2-1.0) mg/dl AST 19 (13-39) U/L ALT 31 (7-52) U/L Alkaline Phosphatase 92 (34-104) U/L Troponin I High Sens 4.1 (0-14) pg/ml Total Protein 7.2 (6.0-8.3) gm/dl Albumin 4.1 (3.4-5.0) gm/dl Globulin 3.1 (2.5-4.0) gm/dl Albumin/Globulin Ratio 1.3 (0.9-2) Procalcitonin (0-0.5) ng/ml TSH (0.300-4.500) uIu/ml Adenovirus (PCR) Not Detected (NotDetected) B. pertussis DNA (PCR) Not Detected (NotDetected) B.parapertussis DNA PCR Not Detected (NotDetected) C. pneumoniae DNA (PCR) Not Detected (NotDetected) Coronavirus OC43 (PCR) Not Detected (NotDetected) Coronavirus HKU1 (PCR) Not Detected (NotDetected) Coronavirus 229E (PCR) Not Detected (NotDetected) SARS-CoV-2 (PCR) Not Detected (NotDetected) Coronavirus NL63 (PCR) Not Detected (NotDetected) Human Metapneumovir PCR Not Detected (NotDetected) Influenza Type A (PCR) Not Detected (NotDetected) Influenza Type B (PCR) Not Detected (NotDetected) M. pneumoniae (PCR) Not Detected (NotDetected) Parainfluenza 1 (PCR) Not Detected (NotDetected) Parainfluenza 2 (PCR) Not Detected (NotDetected) Parainfluenza 3 (PCR) Not Detected (NotDetected) Parainfluenza 4 (PCR) Not Detected (NotDetected) RSV (PCR) Not Detected (NotDetected) Entero/Rhino (PCR) DETECTED A* (NotDetected) 07/15/22 Range/Units 11:50 WBC 15.76 H (4.8-10.8) K/ul RBC 5.19 (4.20-5.40) M/uL Hgb 14.6 (12.0-16.0) g/dl Hct 45.5 (37.0-47.0) % MCV 87.7 (80.0-100.0) fL MCH 28.1 (25.0-34.0) pg MCHC 32.1 (32.0-36.0) g/dL RDW Std Deviation 45.1 (36.4-46.3) fL RDW Coeff of Lilia 14.1 (11.5-14.5) % Plt Count 302 (130-400) K/uL MPV 10.4 (9.4-12.4) fL Immature Gran % (Auto) 0.6 % Neut % (Auto) 71.9 % Lymph % (Auto) 19.6 % Otoe % (Auto) 5.8 % Eos % (Auto) 1.6 % Baso % (Auto) 0.5 % Neut # (Auto) 11.34 H (1.40-6.50) K/uL Lymph # (Auto) 3.09 (1.2-3.4) K/uL Otoe # (Auto) 0.91 H (0.11-0.59) K/uL Eos # (Auto) 0.25 (0-0.50) K/uL Baso # (Auto) 0.08 (0-0.2) K/uL Immature Gran # (Auto) 0.09 (0.01-0.20) K/uL PT (9.0-12.0) Seconds INR (0.9-1.1) APTT (21.0-31.0) Seconds PTT Ratio Sodium (136-145) mmol/L Potassium (3.5-5.1) mmol/L Chloride (98-107) mmol/L Carbon Dioxide (21-32) mmol/L Anion Gap (3-11) BUN (6-23) mg/dl Creatinine (0.6-1.2) mg/dl Est Cr Clr Drug Dosing Est GFR ( Amer) ml/min Est GFR (Non-Af Amer) ml/min BUN/Creatinine Ratio (10-20) Glucose (70-99(Fasting)) mg/dl Calcium (8.6-10.3) mg/dl Magnesium (1.7-2.4) mg/dl Total Bilirubin (0.2-1.0) mg/dl AST (13-39) U/L ALT (7-52) U/L Alkaline Phosphatase (34-104) U/L Troponin I High Sens (0-14) pg/ml Total Protein (6.0-8.3) gm/dl Albumin (3.4-5.0) gm/dl Globulin (2.5-4.0) gm/dl Albumin/Globulin Ratio (0.9-2) Procalcitonin (0-0.5) ng/ml TSH (0.300-4.500) uIu/ml Adenovirus (PCR) (NotDetected) B. pertussis DNA (PCR) (NotDetected) B.parapertussis DNA PCR (NotDetected) C. pneumoniae DNA (PCR) (NotDetected) Coronavirus OC43 (PCR) (NotDetected) Coronavirus HKU1 (PCR) (NotDetected) Coronavirus 229E (PCR) (NotDetected) SARS-CoV-2 (PCR) (NotDetected) Coronavirus NL63 (PCR) (NotDetected) Human Metapneumovir PCR (NotDetected) Influenza Type A (PCR) (NotDetected) Influenza Type B (PCR) (NotDetected) M. pneumoniae (PCR) (NotDetected) Parainfluenza 1 (PCR) (NotDetected) Parainfluenza 2 (PCR) (NotDetected) Parainfluenza 3 (PCR) (NotDetected) Parainfluenza 4 (PCR) (NotDetected) RSV (PCR) (NotDetected) Entero/Rhino (PCR) (NotDetected) Diagnostic Findings Chest X-Ray 07/15/22 11:47 SINGLE VIEW CHEST CLINICAL HISTORY: Atypical chest pain. FINDINGS: An AP, portable, upright chest radiograph is compared to study dated 10/31/2019. The cardiomediastinal silhouette is unremarkable. The lungs and pleural spaces are clear noting mild bibasilar atelectasis. No pneumothorax is seen. The skeletal structures are osteopenic. The bony thorax is grossly intact. IMPRESSION: No active disease in the chest. ACT 112: Negative or not required by law. Electronically signed by: Corey Washington M.D. 07/15/2022 12:21 PM Venous Doppler Study 07/15/22 14:05 ULTRASOUND RIGHT LOWER EXTREMITY VENOUS CLINICAL HISTORY: Calf pain. COMPARISON STUDY: Right lower extremity venous ultrasound dated 03/08/2019 TECHNIQUE: Real-time, grayscale, and color Doppler sonography of the deep veins of the right lower extremity was performed from the inguinal crease to the calf. Compression and augmentation were utilized. FINDINGS: There is no sonographic evidence of deep venous thrombosis identified in the right lower extremity. The common femoral, superficial femoral, and popliteal veins are patent and normally compressible. The greater saphenous vein and the profunda femoris vein at the junction with the common femoral vein are clear. The visualized calf veins are patent. There are superficial venous varicosities identified in the calf at the site of discomfort. These vessels are patent. IMPRESSION: 1. There is no sonographic evidence of deep venous thrombosis identified in the right lower extremity. 2. Superficial venous varicosities are seen in the right calf at the site of discomfort. ACT 112: Negative or not required by law. Electronically signed by: Corey Washington M.D. 07/15/2022 2:56 PM Chest CTA 07/15/22 15:30 CT ANGIOGRAM OF THE CHEST CLINICAL HISTORY: Hemoptysis. Atypical chest pain. COMPARISON STUDY: Chest x-ray dated 07/15/2022. Chest CT dated 03/08/2019. TECHNIQUE: Following the IV administration of 114 cc of Optiray 320, CT angiogram of the chest was performed from the upper abdomen to the thoracic inlet utilizing the pulmonary embolus protocol. Images are reviewed in the axial, sagittal, and coronal planes. 3-D MIPS images are created and assessed. IV contrast was administered without complication. A dose lowering technique was utilized adhering to the principles of ALARA. CT DOSE: 504.96 mGy.cm FINDINGS: Thyroid: Atrophic. Thoracic aorta: There is moderate atherosclerotic calcification of the thoracic aorta. There is aneurysmal dilatation of the ascending thoracic aorta which measures up to 4.4 cm in diameter. The remainder of the thoracic aorta is normal in caliber, and the arch demonstrates 4-vessel variant anatomy. No dissection is seen. Pulmonary vasculature: The main pulmonary arteries are dilated suggesting pulmonary artery hypertension.. There are no filling defects identified in main, lobar, or segmental pulmonary branches to suggest pulmonary embolus. Heart: The heart is normal in size and without pericardial effusion. Lungs and pleural spaces: There is no lobar consolidation or pleural effusion. Scarring/atelectasis is noted at the lung bases. The trachea and central airways are clear. There are numerous (at least 8) solid and subsolid nodules scattered throughout both lungs. The majority of these are unchanged from 03/08/2019. There is a new groundglass nodule in the left upper lobe seen on image #178 which measures 7 mm. A subsolid nodules in the anterior right upper lobe on image #160 measures up to 9 mm. Additional nodules in the right upper lobe on image #218, the right lower lobe on images #165 and #132, and the left upper lobe on image #175 are unchanged. There are scattered calcified granulomas. Mediastinum: There is no mediastinal lymphadenopathy. Vilma: Clear. Axillae: There is no axillary lymphadenopathy. Upper abdomen: There is a tiny hiatal hernia. A 3 mm nonobstructing calculus is seen in the upper pole of left kidney. There is a 1.8 cm right lobe hepatic cyst. A 1.3 cm cyst is seen in the upper pole of the left kidney. Skeletal structures: The skeletal structures are osteopenic. No lytic or blastic bony lesions are seen. IMPRESSION: 1. There is no evidence of pulmonary embolus in the main, lobar, or segmental pulmonary arteries. 2. There is no airspace consolidation typical for pneumonia or pleural effusion. 3. There is aneurysmal dilatation of the ascending thoracic aorta which measures 4.4 cm in diameter. 4. There are solid and subsolid pulmonary nodules as above, at least one of which is new from 03/08/2019. Follow-up is recommended as per the Fleischner criteria. See below. 5. Left-sided nephrolithiasis. 6. Additional findings as above. Please refer to below summary of Fleischner criteria recommendations for follow- up of incidental CT nodules (Radha Aggarwal, Guidelines for management of small pulmonary nodules detected on CT scans: A statement from the Fleischner Society, Radiology 237: [phone].) SOLID NODULES Solitary nodule size: <6 mm * low risk patients: no follow-up needed * high risk patients: optional CT at 12 months Solitary nodule size: 6-8 mm * low risk patients: follow-up at 6-12 months, then consider further follow-up at 18-24 months * high risk patients: initial follow-up CT at 6-12 months and then at 18-24 months if no change Solitary nodule size: >8 mm * either low or high risk patients - consider follow-up CT at 3 months, and/or CT-PET, and/or biopsy Multiple nodules size: <6 mm * low risk patients: no routine follow-up * high risk patients: optional CT at 12 months Multiple nodules size: 6-8 mm * low risk patients: follow-up at 3-6 months, then consider further follow-up at 18-24 months * high risk patients: follow-up at 3-6 months, then at 18-24 months if no change Multiple nodules size: >8 mm * low risk patients: follow-up at 3-6 months, then consider further follow-up at 18-24 months * high risk patients: follow-up at 3-6 months, then at 18-24 months if no change Note: newly detected indeterminate nodule in persons 35 years of age or older. * low risk patients: minimal or absent history of smoking and/or other known risk factors * high risk patients: history of smoking or of other known risk factors (e.g. first degree relative with lung cancer, or exposure to asbestos, radon, uranium) * if a nodule up to 8 mm is partly solid or is ground glass further follow-up is required after 24 months to exclude possible slow growing adenocarcinoma (GILES) SUBSOLID NODULES Solitary pure ground-glass nodule * nodule size <6 mm - no CT follow-up required * nodule size >=6 mm - follow-up CT at 6-12 months, then every 2 years until 5 years Solitary part-solid nodule * nodule size <6 mm - no CT follow-up required * nodule size >=6 mm - follow-up CT at 3-6 months. If unchanged, and solid component remains <6 mm, then annual follow-up for 5 years Multiple subsolid nodules * nodule size <6 mm - follow-up CT at 3-6 months, consider further follow-up at 2 and 4 years if stable * nodule size >=6 mm - follow-up CT at 3-6 months, subsequent management based on the most suspicious nodule(s) ACT 112: Negative or not required by law. Electronically signed by: Corey Washington M.D. 07/15/2022 4:09 PM PG Care Time/CCT Total # of Minutes Spent Total Time Spent with Patient: Total time spent is greater than 50% in coordination of care (as documented) at patient's floor/unit and/or counseling patient: Coding Level of Care Code 65956 SUB INP/OBS CARE 3/50MIN Diagnoses Acute respiratory failure with hypoxia J96.01 Asthma exacerbation J45.901 Enterovirus infection B34.1 Hypothyroid E03.9 Hypothyroidism type: unspecified Afib I48.0 Atrial fibrillation type: paroxysmal GERD (gastroesophageal reflux disease) K21.9 Esophagitis presence: esophagitis presence not specified Rosacea conjunctivitis L71.8; H10.829 (4) Hypothyroid Hypothyroidism type: unspecified Qualified Code(s): E03.9 - Hypothyroidism, unspecified (5) Afib Atrial fibrillation type: paroxysmal Qualified Code(s): I48.0 - Paroxysmal atrial fibrillation (6) GERD (gastroesophageal reflux disease) Esophagitis presence: esophagitis presence not specified Qualified Code(s): K21.9 - Gastro-esophageal reflux disease without esophagitis
[2022-07-16] MEDS: BUDESONIDE 0.5 MG/2 ML VIAL (PULMICORT) NEB SCH ×2 (07:47→19:56)
[2022-07-16] MEDS: SODIUM CHLOR 7% 4 ML NEB NEB SCH ×2 (07:47→19:56)
[2022-07-16] MEDS: FORMOTEROL 20 MCG/2 ML VIAL NEB SCH ×2 (07:47→19:56)
[2022-07-16 08:12] LABS: Hematocrit (blood only) 43.9 % (37.0-47.0); Hemoglobin 13.9 g/dl (12.0-16.0); Mean Corpuscular Hemoglobin 28.1 pg (25.0-34.0); Mean Corpuscular Hgb Conc 31.7 g/dL (32.0-36.0); Mean Corpuscular Volume 88.9 fL (80.0-100.0); Platelet Count 334 K/uL (130-400); RDW Coefficient of Variation 13.9 % (11.5-14.5); RDW Standard Deviation 45.1 fL (36.4-46.3); Red Blood Count 4.94 M/uL (4.20-5.40)
[2022-07-16] MEDS: ASPIRIN 81 MG ECTAB PO SCH (08:38)
[2022-07-16] MEDS: DOXYCYCLINE HYCLATE 50 MG CAP PO SCH (08:38)
[2022-07-16] MEDS: AZITHROMYCIN 250 MG TAB PO SCH (08:39)
[2022-07-16] MEDS: busPIRone 5 MG TAB PO SCH ×2 (08:39→20:55)
[2022-07-16] MEDS: FLECAINIDE ACETATE 100 MG TABLET PO SCH ×2 (08:39→20:55)
[2022-07-16] MEDS: VERAPAMIL HCL 40 MG TAB PO SCH ×2 (08:39→20:56)
[2022-07-16] MEDS: PANTOprazole 40 MG TAB PO SCH ×2 (08:39→20:55)
[2022-07-16] MEDS: ENOXAPARIN INJ 40 MG/0.4 ML SYR SQ SCH (08:40)
[2022-07-16 08:46] LABS: BUN Creatinine Ratio 22.2 (10-20); Calcium 9.1 mg/dl (8.6-10.3); Est GFR (African American) 116.4 ml/min; Est GFR (Non-African American) 100.4 ml/min; Magnesium 2.3 mg/dl (1.7-2.4); Potassium 4.2 mmol/L (3.5-5.1)
[2022-07-16] MEDS: methylPREDNISolone 40 MG in SYRINGE 0 ML IV SCH ×4 (10:11→20:56)
[2022-07-16] MEDS: guaiFENesin 600 MG TABCR PO SCH (20:50)
[2022-07-17] MEDS: ALBUT/IPRATROP 3MG/0.5MG NEB 3 ML VIAL NEB SCH ×6 (03:46→22:52)
[2022-07-17 06:39] LABS: BUN Creatinine Ratio 27.1 (10-20); Calcium 8.8 mg/dl (8.6-10.3); Est GFR (African American) 113.1 ml/min; Est GFR (Non-African American) 97.5 ml/min; Magnesium 2.2 mg/dl (1.7-2.4); Potassium 4.5 mmol/L (3.5-5.1)
--- NOTE | 2022-07-17 07:18 | XRay Report ---
XR chest 1V portable CLINICAL HISTORY: f/u, eval congestion COMPARISON STUDY: Chest radiograph and chest CT July 15, 2022. FINDINGS: Lung volumes are normal. Lungs are clear. There is no pneumothorax or pleural effusion. Car diac size is stable. Mediastinal contours are normal. There is pulmonary vascular congestion without overt pulmonary edema. IMPRESSION: Pulmonary vascular congestion without overt pulmonary edema. ACT 112: Negative or not required by law. Electronically signed by: Joel Tompkins M.D. 07/17/2022 7:17 AM
[2022-07-17] MEDS: SODIUM CHLOR 7% 4 ML NEB NEB SCH ×2 (07:28→20:07)
[2022-07-17] MEDS: FORMOTEROL 20 MCG/2 ML VIAL NEB SCH ×2 (07:28→20:07)
[2022-07-17] MEDS: BUDESONIDE 0.5 MG/2 ML VIAL (PULMICORT) NEB SCH ×2 (07:28→20:07)
[2022-07-17] MEDS ORDERED: FUROSEMIDE 40 MG/4 ML VIAL IV ONE (08:27)
[2022-07-17] MEDS: methylPREDNISolone 40 MG in SYRINGE 0 ML IV SCH ×2 (08:28→18:34)
[2022-07-17] MEDS: DOXYCYCLINE HYCLATE 50 MG CAP PO SCH (08:30)
[2022-07-17] MEDS: ENOXAPARIN INJ 40 MG/0.4 ML SYR SQ SCH (08:30)
[2022-07-17] MEDS: guaiFENesin 600 MG TABCR PO SCH ×2 (08:30→21:24)
[2022-07-17] MEDS: AZITHROMYCIN 250 MG TAB PO SCH (08:30)
[2022-07-17] MEDS: PANTOprazole 40 MG TAB PO SCH ×2 (08:30→21:24)
[2022-07-17] MEDS: busPIRone 5 MG TAB PO SCH ×2 (08:31→21:22)
[2022-07-17] MEDS: ASPIRIN 81 MG ECTAB PO SCH (08:31)
--- NOTE | 2022-07-17 08:32 | Hospitalist Progress Note ---
Date of Service July 17, 2022 Assessment & Plan (1) Acute respiratory failure with hypoxia: Plan: Recent rx for Augmentin/prednisone 40mg x 5 days (but did report taking some 30mg and dropping off, tapers in the past w/ Dr Coombs but wasn't rx as such). Feeling better than developed acute worsening. Does use RA during the day but 2L at night. No sleep apnea on recent study reported Seen at Dr Vazquez's office w/ wheezing/hypoxia to the 70s in office and instructed to go to the ER for care/treatment of such Hypoxia multifactorial, asthma exacerbation w/ bronchiectasis in setting of entero/rhinovirus. CT chest w/o consolidation to suggest bacteria PNA at present. Procal negative. Afebrile WBC likely from steroid use Azithromycin x 3 days ordered Placed on Solumedrol 40mg IV BID but increased to TID however she refused due to headache/irritability last evening and will change back to BID given significantly improved wheezing on exam and clearance of sputum since addition of mucinex BID and discussed w/ patient to continue such at discharge Plan to convert to prednisone tomorrow if exam remains stable, consider higher dose ie 60mg and slow taper at discharge to prevent rebound Sputum cx pending GS w/ few gram + cocci, gram + bacilli, gram - coccobacilli and will monitor for final cx to ensure no change in abx required Continue Duoneb q4h, formoterol/budesonide nebs BID as well as hypertonic saline as she uses at home. Continue incentive spirometer, flutter valve Lasix 40mg IV x 1 this morning for some congestion. 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 Also w/ stressors including daughter w/ mass in abdomen requiring surgery) (2) Asthma exacerbation: Plan: 2nd to viral illness as above, + enterovirus/rhinovirus on PCR Solumedrol as above, consider switching to PO prednisone in AM and slow taper at d/c Continue inhalers/nebulizers as above, Continue mucinex, and at hi for her bronchiectasis Azitho ordered x 3 days (recently completed course Augmentin) O2 as needed, now on RA (3) Enterovirus infection: Plan: Isolation contact precautions tx as outlined above, supportive care (4) Hypothyroid: Plan: Add TSH to prior labs -- wnl Continue Synthroid 175mcg daily -- NEEDS NAME BRAND -- not bringing into hospital per patient as doesn't want to send down to pharmacy. (5) Afib: Plan: Paroxysmal. Currently in NSR with premature supraventricular complexes with definitive p waves present. Not on anticoagulation chronically presumably due to low [id number] - 1 Continue flecainide and verapamil, is on aspirin but 162mg dose -- ?decreasing to 81mg daily to prevent GI upset (6) GERD (gastroesophageal reflux disease): Plan: Continue PPI/hospital equivalent added pepcid BID given already on PPI BID and on steroids w/ some GI upset reported (7) Rosacea conjunctivitis: Plan: History of such Continue doxycycline for chronic suppression Plan VTE Prophylaxis - Lovenox 40 mg SQ daily Continued inpatient stay, possible switch to PO prednisone in AM, would do 60mg and decrease by 10mg every 3 days given already completed 5 day standard course and did take 30mg at home she had but then stopped. Prior success w/ slow taper Would have her continue mucinex at discharge along w/ IS/flutter valve and outpt f/u with her warehouse loader at [place] Monitor response to lasix on labs/exam and consider low dose at discharge She is hopeful for d/c 07/17 2 step completed today w/o need for O2 w/ ambulation Admission and Anticipated Discharge Date Admission Date: July 15, 2022 Supervising Physician Co-Signing Physician Notes The patient was not seen by me. The chart was reviewed. Case discussed with SUSIE Elizabeth. Agree with assessment and plan Subjective eval this morning, did pass her 2 step. breathing improved but still winded easily and with cough. she notes she declined evening steroid due to irritability and headache but agreeable to twice daily. she notes headache resolved overnight. wheezing on exam much improved, but discussed also giving a dose of lasix for some congestion and will monitor response and consider as needed lasix at discharge for weight gain given her prior reports LE swelling but none on exam at present. Did have some epigastric pain feeling like an ulcer and discussed continue PPI BID and will add meds for reflux. she did note some improvement in clearing sputum w/ mucinex and notes someone as ked her in the past if she should be on this but no one ever told her she should. discussed continued use w/ such as well as her hypertonic saline to help clear secretions. discussed wanting to monitor her sputum cx to ensure no need for different antibiotic but if continues to do well can switch to PO prednisone for tomorrow and plan for slow taper at discharge, hopefully tomorrow. questions/concerns addressed. Physical Exam Physical Exam: General: WD, chronically ill appearing female sitting up in bed, coryza, occasional coughing fit but improving, no tachypnea HEENT: head normocephalic atraumatic, mmm, trachea midline Resp; significantly improved wheezing/rales, end expiratory wheezing primarily to posterior lung wyatt, slightly diminished in the bases, no crackles, on room air at present (just titrated off) CV: RRR, no significant m/r/g, no pitting edema GI: +BS, soft/NT Neuro/Msk: no focal deficit Psych: AOx3, pleasant, talkative Results & Data Results & Data Vital Signs (Past 12 Hours) Vital Signs Temp Pulse Resp BP Pulse Ox O2 Del Method O2 Flow Rate 07/17/22 08:27 93 Room Air 07/17/22 08:27 36.9 C 77 19 113/73 93 Room Air 07/17/22 07:29 66 18 97 Nasal Cannula 2 07/16/22 23:30 71 16 94 Nasal Cannula 3 07/16/22 20:48 36.8 C 77 18 116/75 95 Nasal Cannula 3 Laboratory Results 07/17/22 07/16/22 Range/Units 05:23 08:00 Sodium 139 139 (136-145) mmol/L Potassium 4.5 4.2 (3.5-5.1) mmol/L Chloride 103 103 (98-107) mmol/L Carbon Dioxide 30 30 (21-32) mmol/L Anion Gap 6 6 (3-11) BUN 16 12 (6-23) mg/dl Creatinine 0.59 L 0.54 L (0.6-1.2) mg/dl Est Cr Clr Drug Dosing 119.0 130.0 ml/min Est GFR ( Amer) 113.1 116.4 ml/min Est GFR (Non-Af Amer) 97.5 100.4 ml/min BUN/Creatinine Ratio 27.1 H 22.2 H (10-20) Glucose 100 H 121 H (70-99(Fasting)) mg/dl Calcium 8.8 9.1 (8.6-10.3) mg/dl Magnesium 2.2 2.3 (1.7-2.4) mg/dl Diagnostic Findings Chest X-Ray 07/17/22 07:00 XR chest 1V portable CLINICAL HISTORY: f/u, eval congestion COMPARISON STUDY: Chest radiograph and chest CT July 15, 2022. FINDINGS: Lung volumes are normal. Lungs are clear. There is no pneumothorax or pleural effusion. Cardiac size is stable. Mediastinal contours are normal. There is pulmonary vascular congestion without overt pulmonary edema. IMPRESSION: Pulmonary vascular congestion without overt pulmonary edema. ACT 112: Negative or not required by law. Electronically signed by: Joel Tompkins M.D. 07/17/2022 7:17 AM PG Care Time/CCT Total # of Minutes Spent Total Time Spent with Patient: Total time spent is greater than 50% in coordination of care (as documented) at patient's floor/unit and/or counseling patient: Coding Level of Care Code 64928 SUB INP/OBS CARE 3/50MIN Diagnoses Acute respiratory failure with hypoxia J96.01 Asthma exacerbation J45.901 Enterovirus infection B34.1 Hypothyroid E03.9 Hypothyroidism type: unspecified Afib I48.0 Atrial fibrillation type: paroxysmal GERD (gastroesophageal reflux disease) K21.9 Esophagitis presence: esophagitis presence not specified Rosacea conjunctivitis L71.8; H10.829 (4) Hypothyroid Hypothyroidism type: unspecified Qualified Code(s): E03.9 - Hypothyroidism, unspecified (5) Afib Atrial fibrillation type: paroxysmal Qualified Code(s): I48.0 - Paroxysmal atrial fibrillation (6) GERD (gastroesophageal reflux disease) Esophagitis presence: esophagitis presence not specified Qualified Code(s): K21.9 - Gastro-esophageal reflux disease without esophagitis
[2022-07-17] MEDS: FAMOTIDINE 20 MG TAB PO SCH ×2 (09:33→21:23)
[2022-07-17] MEDS: FLECAINIDE ACETATE 100 MG TABLET PO SCH ×2 (09:34→21:23)
[2022-07-17] MEDS: VERAPAMIL HCL 40 MG TAB PO SCH ×2 (09:34→21:24)
[2022-07-18] MEDS: ALBUT/IPRATROP 3MG/0.5MG NEB 3 ML VIAL NEB SCH ×4 (02:36→15:06)
[2022-07-18] MEDS: SODIUM CHLOR 7% 4 ML NEB NEB SCH (07:19)
[2022-07-18] MEDS: FORMOTEROL 20 MCG/2 ML VIAL NEB SCH (07:19)
[2022-07-18] MEDS: BUDESONIDE 0.5 MG/2 ML VIAL (PULMICORT) NEB SCH (07:19)
[2022-07-18 08:01] LABS: BUN Creatinine Ratio 31.6 (10-20); Calcium 9.3 mg/dl (8.6-10.3); Creatinine Clr Calc Pharmacy 123.2 ml/min; Est GFR (African American) 114.3 ml/min; Est GFR (Non-African American) 98.7 ml/min; Magnesium 2.2 mg/dl (1.7-2.4); Potassium 4.2 mmol/L (3.5-5.1)
[2022-07-18] MEDS: VERAPAMIL HCL 40 MG TAB PO SCH (08:08)
[2022-07-18] MEDS: PANTOprazole 40 MG TAB PO SCH (08:08)
[2022-07-18] MEDS: ASPIRIN 81 MG ECTAB PO SCH (08:09)
[2022-07-18] MEDS: DOXYCYCLINE HYCLATE 50 MG CAP PO SCH (08:09)
[2022-07-18] MEDS: FLECAINIDE ACETATE 100 MG TABLET PO SCH (08:09)
[2022-07-18] MEDS: guaiFENesin 600 MG TABCR PO SCH (08:09)
[2022-07-18] MEDS: AZITHROMYCIN 250 MG TAB PO SCH (08:09)
[2022-07-18] MEDS: busPIRone 5 MG TAB PO SCH (08:09)
[2022-07-18] MEDS: ENOXAPARIN INJ 40 MG/0.4 ML SYR SQ SCH (08:10)
[2022-07-18] MEDS: FAMOTIDINE 20 MG TAB PO SCH (08:10)
[2022-07-18] MEDS: methylPREDNISolone 40 MG in SYRINGE 0 ML IV SCH (09:55)
--- NOTE | 2022-07-18 11:05 | Discharge Summary ---
Date of Service July 18, 2022 Admission HPI Per Admitting Provider Shanti Hargrove is a 61 year old with asthma and bronchiectasis who presents to the ER with shortness of breath. She reports going to a baseball game and getting more short of breath 8 days ago. By the time she got home she was wheezing. She called her ward assistant and spoke to the rapier insertion loom fixer physician who prescribed Augmentin and prednisone (40mg PO daily for 5 days) which she picked up and started the following day. This helped somewhat with using her albuterol and hypertonic saline nebs twice a day but she started to get worse again after she stopped the prednisone. Her cough has also been getting worse and she is cou ghing up yellow sputum. No fever or chills. No chest pain, orthopnea, PND or sinus pain. Admission Exam Per Admitting Provider Constitutional: well developed and + acute distress (respiratory); + not well nourished Eyes: + anicteric sclerae; normal pupil size ENMT: external ear and nose normal, oropharynx normal Respiratory: normal respiratory effort, + labored breathing and + uses accessory muscles; not tachypneic Cardiovascular: RRR, no murmur, no edema Gastrointestinal (Abdomen): normal bowel sounds, soft, nontender, no h epatosplenomegaly Musculoskeletal: no cyanosis or clubbing, extremities motor strength 5/5 Skin: no rashes, warm and dry Neurologic: moves all extremities and awake; not confused Psychiatric: A+Ox3, euthymic affect Principal Diagnosis Acute respiratory failure with hypoxia, asthma exacerbation and + entero/rhinovirus Discharge Exam Constitutional WD/WN, vitals as above Neck trachea midline, no thyromegaly Respiratory mild end expiratory wheeze, mild decreased breath sounds in the bases. No rhonchi or rales Cardiovascular RRR, no murmur, no edema Extremities: normal capillary refill; no calf tenderness and no edema Gastrointestinal (Abdomen) normal bowel sounds, soft, nontender, no hepatosplenomegaly Neurologic PERRL, EOMI, accommodation nl, no face palsy, no dysarthria Psychiatric A+Ox3, euthymic affect Discharge Data Allergies Allergy/AdvReac Type Severity Reaction Status Date / Time codeine Allergy Mild SEVERE Verified 07/15/22 13:13 STOMACH PAIN, COLD AND CLAMMY. adhesive Allergy Unknown rash Verified 07/15/22 13:13 chlorhexidine AdvReac Intermediate ITCHING Verified 07/15/22 13:13 AND BURNING AT SITE OF USE aspirin AdvReac Mild too much Verified 07/15/22 13:13 aspirin causes stomach bleed NSAIDS (Non-Steroidal AdvReac Unknown gastric Verified 07/15/22 13:13 Anti-Inflamma bleeding Consultations 07/15/22 16:56 ED Decision to Admit Stat Ordered Studies 07/15/22 14:05 US venous doppler LE RT Stat 1. There is no sonographic evidence of deep venous thrombosis identified in the right lower extremity. 2. Superficial venous varicosities are seen in the right calf at the site of discomfort. 07/15/22 15:30 CT angio chest PE protocol Stat 1. There is no evidence of pulmonary embolus in the main, lobar, or segmental pulmonary arteries. 2. There is no airspace consolidation typical for pneumonia or pleural effusion. 3. There is aneurysmal dilatation of the ascending thoracic aorta which measures 4.4 cm in diameter. 4. There are solid and subsolid pulmonary nodules as above, at least one of which is new from 03/08/2019. Follow-up is recommended as per the Fleischner criteria. See below. 5. Left-sided nephrolithiasis. 6. Additional findings as above. Hospital Course (1) Acute respiratory failure with hypoxia: Was treated as outpatient with Augmentin and Prednisone 40mg x 5 days and no taper. Was slightly better and then had grand children staying with her, who had a viral illness (N/V and coughing) then patient became ill with coughing and SOB. Was seen at Dr Vazquez's office and noted to be hypoxic with Oxygen in the 70s and was instructed to come to the ER. Found to have + entero/rhinovirus. Hypoxia was likely multifactorial, asthma exacerbation w/ bronchiectasis in setting of entero/rhinovirus. CT chest w/o consolidation to suggest bacteria PNA at present. Procal negative. Afebrile WBC likely from steroid use Azithromycin x 3 days completed (actually had 4 days of 500mg) Placed on Solumedrol 40mg IV BID and increased to TID however she refused due to headache/irritability and then change back to BID. Had significant improvement in wheezing on exam and clearance of sputum after the addition of mucinex BID and discussed w/ patient to continue such at discharge Sputum cx prelim with moderate normal stacey Continue Duoneb q4h, formoterol/budesonide nebs BID as well as hypertonic saline as she uses at home. Can continue incentive spirometer, flutter valve at home Discussed prn Lasix dosing with patient. She states her weight fluctuates normally 3-5 pounds with our any swelling. Patient was reluctant to do daily Lasix but stated she wanted to try weight based and take if she is up 5# or more. Discussed though, low sodium diet and support stockings. 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 Also w/ stressors including daughter w/ mass in abdomen requiring surgery) (2) Asthma exacerbation: 2nd to viral illness as above, + enterovirus/rhinovirus on PCR Solumedrol as above, switching to PO prednisone upon discharge later today 60mg daily and down by 10mg every 3 days until on 10mg for 3 days and then stop Continue inhalers/nebulizers as above, Continue mucinex, and at ca for her bronchiectasis Azitho ordered x 3 days (recently completed course Augmentin) O2 as needed, now on RA (3) Enterovirus infection: Isolation contact precautions tx as outlined above, supportive care (4) Hypothyroid: Add TSH to prior labs -- wnl Continue Synthroid 175mcg daily -- NEEDS NAME BRAND -- (5) Afib: Paroxysmal. Currently in NSR with premature supraventricular complexes with definitive p waves present. Not on anticoagulation chronically presumably due to low [id number] - 1 Continue flecainide and verapamil, is on aspirin but 162mg dose -- ?decreasing to 81mg daily to prevent GI upset - Patient to discuss with PCP (6) GERD (gastroesophageal reflux disease): Continue PPI Discussed to take po prednisone with food (7) Rosacea conjunctivitis: History of such Continue doxycycline for chronic suppression Plan Discharge to home today Total Time Total Time Spent Total Time Spent (In Minutes): 40 Discharge Plan Discharge Items Patient Disposition: Home - Self-Care Reason For Visit: ASTHMA EXACERBATION Discharge Diagnosis: Asthma Exacerbation, Rhinovirus/Enterovirus infection Activity: Resume your previous activity Non-emergency contact: Primary Care Provider and Senior Product Marketing Manager Call non-emergency contact if: you have any medication questions, your symptoms worsen and you have a fever Follow-up/Referrals: Teddy Tsai DO [Primary Care Provider] - 07/21/22 9:05 am (Follow up appt with Dr. Christy on 07/21/22 @ 0905) Diet: Heart Healthy and Low Sodium (2gm) Addtl Attending Provider Instructions: You were admitted with hypoxia (low oxygen) and were found to have +enterovirus/rhinovirus. You were treated with supportive care, IV steroids for asthma exacerbation, mucinex and nebulizer treatments. Upon discharge you should - continue mucinex twice daily along with hypertonic saline nebulizers to help with clearing secretions continue incentive spirometer, flutter valve take oral prednisone 60mg for 3 days, 50mg for 3 days, 40mg for 3 days, 30mg for 3 days, 20mg for 3 days, 10mg for 3 days and then stop sputum culture preliminary with normal stacey completed course of azithromycin pepcid BID while on steroids and continue omeprazole and take prednisone with food discussed low sodium diet, support hose, elevate extremities discussed prn Lasix dosage with increase weight gain, you decided you would like to try prn Lasix and take 20mg of Lasix if your weight increases by 5 pounds Weight yourself today with your home scale and use todays weight as your starting weight. discussed if has lower extremity swelling that dose not resolve with elevation, support hose and prn lasix you may eventually need daily lasix You should follow up with your family doctor in 2 weeks. 2step prior to discharge without need for supplemental oxygen with ambulation -- please continue to use with sleep as previously using f/u ward assistant as previously scheduled with Dr Lloyd Pending Studies at Discharge: Yes Studies:: final sputum culture but prelim with normal stacey Stand-Alone Forms: My [facility] Medications and DC Order Prescriptions: New Mucinex 1,200 mg tablet extended release 12hr 1,200 mg PO BID Qty: 60 0RF sodium chloride 7 % Solution For Nebulization 4 ml NEB BIDR Qty: 120 0RF famotidine 20 mg Tablet 20 mg PO BID Qty: 0 0RF guaifenesin [Mucinex] 600 mg Tablet Extended Release 12hr 1,200 mg PO Q12 Qty: 0 0RF furosemide [Lasix] 20 mg tablet 20 mg PO DAILY PRN (Reason: edema) Qty: 30 0RF Rx Instructions: check daily weights, if your weight increases by 5 pounds take one Lasix pill Continued albuterol sulfate 2.5 mg /3 mL (0.083 %) solution for nebulization 2.5 mg INH QID PRN (Reason: shortness of breath or wheezing) Qty: 180 2RF fluticasone propion-salmeterol [Advair Diskus] 500-50 mcg/dose blister with device 1 puffs INH BID Qty: 180 3RF Spiriva Respimat 2.5 mcg/actuation mist 2 puffs INH DAILY Qty: 3 3RF cholecalciferol (vitamin D3) 2,000 unit tablet 2,000 unit PO DAILY docusate sodium 100 mg capsule 100 mg PO DAILY PRN (Reason: Constipation) omeprazole magnesium 20 mg tablet,delayed release (DR/EC) 40 mg PO BID Patient Comments: 20mg x2 QAM, 20mg x2 QPM. flecainide 50 mg tablet 50 mg PO Q12H buspirone 5 mg tablet 5 mg PO BID (DME) Oxygen Home Liters Per Minute See Rx Instructions .ROUTE Rx Instructions: As directed albuterol sulfate [Ventolin HFA] 90 mcg/actuation HFA aerosol inhaler 2 puff INHALATION Q4H PRN (Reason: Wheezing) Qty: 54 3RF omega 0-hks-qrl-fish oil [Fish Oil] 1,000 mg (120 mg-180 mg) Capsule 1 cap PO DAILY aspirin [Diane Low Dose Aspirin] 81 mg Tablet,Delayed Release (Dr/Ec) 162 mg PO DAILY Patient Comments: takes two aspirins daily to help with blood clot in legs. levothyroxine [Synthroid] 175 mcg tablet 175 mcg PO HS Rx Instructions: Pt must have name brand verapamil 40 mg tablet 40 mg PO BID doxycycline hyclate 50 mg capsule 50 mg PO DAILY clobetasol 0.05 % cream 1 applic topical DAILY PRN (Reason: Itching) Rx Instructions: Use daily for acute symptoms, 2-3 times per week for maintenance phase. nystatin 100,000 unit/gram powder 1 applic topical BID PRN (Reason: Unknown) Discharge Orders: Discharge Order (Routine); Ordered 07/18/22 Ordered By: Mimi Maria Admission Data Admit Date/Time: 07/15/22 17:34 Attending Provider: Tonya Melendez Admit Provider: Sam Otero Primary Care Provider: Teddy Tsai Other Providers: Sam Otero Other Interventions: Discharge Summary Assessment (RN) Last Done: 07/18/22 12:13 Supervising Physician Co-Signing Physician Notes PA Supervision Note: I personally saw and examined the patient. I verified all monique points and agree with SUSIE Maria with the following exceptions and/or additions: Subjective: 61 yo F Hx moderate persistent asthma, AFib, hypothyroidism admitted for asthma exacerbation. On my interview today patient endorses ongoing intermittent cough, but otherwise significant improvement from symptoms on admission. She endorses intermittent cough at baseline. She denies other symptoms. Physical exam: Vitals reviewed Gen: Alert and oriented, NAD HEENT: anicteric sclerae, EOMI CV: RRR no mgr nl S1S2 Pulm: lungs clear with intermittent expiratory wheeze, intermittent cough Abd: +BS soft NT ND no masses Ext: no edema, 2+ DP pulses Skin: no rashes, warm/dry Neuro: No focal neurologic deficits Labs, Rads, and ECG reviewed Assessment and Plan: Asthma exacerbation: In the setting of Rhino/enterovirus infection. Treated with IV steroid therapy and Duonebs with improvement in symptoms. Will discharge home on prolonged steroid taper with prn DuoNebs, and continuation of home inhalers. Recommended continuing Mucinex and saline nebs for bronchiectasis. Recommended follow up with Pulm and family doctor given this exacerbation requiring hospitalization. Plan otherwise as stated above. Coding Level of Care Code 90166 INP/OBS DISCH >30 MIN Diagnoses Acute respiratory failure with hypoxia J96.01 Asthma exacerbation J45.901 Enterovirus infection B34.1 Hypothyroid E03.9 Hypothyroidism type: unspecified Afib I48.0 Atrial fibrillation type: paroxysmal GERD (gastroesophageal reflux disease) K21.9 Esophagitis presence: esophagitis presence not specified Rosacea conjunctivitis L71.8; H10.829
== END 2022-07-18 15:11 | disposition home or self-care (01) ==
LOC: ED 11:40 → 3W 11:40 → SUATTDRO 17:34 → 3W 20:06

== ENCOUNTER 2024-07-26 20:30 | Observation (INO) ==
[2024-07-26] MEDS: KETOROLAC 30 MG/ML VIAL IV STA (21:42)
[2024-07-26] MEDS: ONDANSETRON INJ 2 MG/ML 2 ML VIAL IV STA (21:42)
[2024-07-26] MEDS: dexAMETHasone**PF** 10 MG/ML VIAL IV ONE (21:42)
[2024-07-26] MEDS: diazePAM 5 MG/ML 10ML VIAL IV STA (21:43)
--- NOTE | 2024-07-26 21:46 | Emergency Department Note ---
Impression & Plan Right arm pain, Cervical radiculopathy, acute ED Provider Note CHIEF COMPLAINT: Right arm pain x 6 weeks Patient is a [id number] 63-year-old female with past medical history significant for asthma, bronchiectasis, rosacea, GERD, hypothyroidism, suspected atrial fibrillation, among other chronic medical problems who presents to the emergency department accompanied by her spouse for evaluation of right arm pain. She reports pain in the right shoulder that radiated down the right upper arm that started about 6 weeks ago. There was no inciting incident or trauma. She tried supportive measures like Advil, ice and heat without relief. In the last few weeks the pain has not began to radiate down the forearm. She has aching in her elbow and her wrist, and in her 2nd and 3rd fingers. It hurts when she moves her right arm. She can do normal tasks like brushing her teeth or brush her hair. She has an appointment with [facility] sports medicine for next week but today when she woke up, the pain was unbearable and she could not wait until the appointment. She currently rates her discomfort a 10/10. She denies any numbness, tingling or paresthesia down the right arm. She feels that it is weak but that it is secondary to pain. She has no neck pain. REVIEW OF SYSTEMS: Review of systems as per HPI. All other systems reviewed were negative. 10 systems reviewed. PMH: External medical records are reviewed and summarized as above/below. See Problem List. SOCIAL HISTORY: Patient lives at home. PHYSICAL EXAM: Vital Signs: Reviewed Nurse's notes. MENTAL STATUS: Patient is a 63-year-old female who is tearful, whimpering and and crying throughout exam. She is not able to cooperate with exam due to pain. MUSCULOSKELETAL: No reproducible tenderness to palpation of the spinous processes of the cervical spine, no significant cervical paraspinous muscle tenderness. Mild discomfort in the right trapezius area, likely due to guarding the right shoulder. Right shoulder is healthy in appearance, no swelling, no rashes or lesions or ecchymosis. Shoulder is generally tender to palpation, but no focal tenderness over worrisome areas like the rotator cuff insertion or the proximal biceps tendon. Shoulder range of motion is markedly limited secondary to discomfort. Unable to fully assess reflexes and range of motion due to patient participation and pain. Right upper extremity is neurovascularly intact. HEART: Regular rate and rhythm. LUNGS: Clear to auscultation. EMERGENCY DEPARTMENT COURSE: The patient was seen and assessed as above. External medical records are reviewed. She presents to the emergency department for evaluation of right arm pain. Based on description and exam, I suspect her pain is cervical in nature. Recommended x-rays of the cervical spine and right shoulder. Pain management discussed with the patient. She reports that she is not able to tolerate most opioids, although she only has codeine listed as an allergy. She also has aspirin and NSAIDs listed as an allergy secondary to "GI bleed" but has been using ibuprofen at home on her own. Saline lock was placed. Patient was treated with IV Toradol 30 mg, Zofran 4 mg, Decadron 10 mg, Valium 5 mg and fentanyl 25 mcg IV x 2. This did help with pain and facilitate radiographs. Right shoulder x-ray per my interpretation degenerative changes without acute fracture or calcific tendinitis. Cervical spine x-rays: Degenerative changes, no acute fracture. Patient was reassessed after x-rays and was again tearful and uncomfortable. X- ray findings reviewed with her. Reiterated that I suspect that her pain is consistent with cervical radiculopathy. Discussed treatment options, ideally would like to discharge to home. She has an orthopedic appointment on Monday, 4 days from now, at which point an MRI can likely be ordered. Discussed pain management until then, including corticosteroids, muscle relaxers, and consideration of opioids. Patient reflects back on her cholecystectomy from several years ago, where she could not tolerate opioids well, and got a rash from a couple of medications that she does not recall. She expresses concern about how she is going to manage her pain until her appointment. Other option would be to admit her to the hospital for pain management, and MRI as an inpatient. After discussion with her spouse, she would prefer inpatient care. Patient history, physical and ED workup reviewed with Dr. Lama. Patient reviewed with the ED immigration case worker, and consultation placed with the [facility]. Patient was given Dilaudid 0.5 mg slow IV push for pain. Laboratory studies were collected for admission purposes including CBC with differential and CMP. These were pending at time of dictation. Please refer to hospitalist note for further information. Differential diagnoses entertained included subacromial bursitis, rotator cuff tendinitis, calcific tendinitis, cervical radiculopathy, right upper extremity DVT, among others. Attending Attestation: I Casimiro Lama MD I have reviewed the advanced practitioner's documentation and agree with the plan of care. I accept the responsibility for the associated risk of managing the patient. I performed a substantive portion of the visit including involvement in all aspects of medical decision making. Past Med/Surg History Problem List Cervical radiculopathy, acute (Acute) Right arm pain (Acute) Bronchiectasis (Acute) Moderate persistent asthma Chronic cough Productive cough Pain and swelling of right lower extremity Intrinsic asthma Vertigo DVT prophylaxis Rosacea conjunctivitis Lichen planus GERD (gastroesophageal reflux disease) Venous insufficiency of both lower extremities Hypothyroid (Acute) Afib (Acute) Pain (Acute 01/30/13) Medical History Protrusion of cervical intervertebral disc Hemoptysis Solitary pulmonary nodule PAF (paroxysmal atrial fibrillation) Obesity (BMI 30-39.9) Joint pain, knee Hyperlipidemia Fibrocystic breast disease GERD (gastroesophageal reflux disease) History of chest pain pt denies at this time Chronic cough Hypothyroidism Venous insufficiency of both lower extremities Moderate persistent asthma daily inhaler and prn inhaler/neb; frequent use History of COVID-19 spring 2023- no hosp; resolved History of cellulitis foot, 10/2023 History of pneumonia last dx ~ 06/2023 Afib on flecainide daily; "They think maybe the beginning of it" - PSH Dr Vazquez Hx of blood clots hx superficial blood clots right leg, recent U/S done 05/15/24 [facility] - ASA daily On home oxygen therapy 2 lpm at night History of vertigo intermittent Pulmonary nodules monitoring Rosacea conjunctivitis on Doxycycline Bronchiectasis chronic, follows w/ [facility] pulmonology Hemoptysis states hx of, due to chronic cough/bronchiectasis - follows w/ [facility] pulmonology Dyspnea chronic SOB w/ exertion Lichen sclerosus Endometriosis IBS (irritable bowel syndrome) Enlarged thoracic aorta PSH Dr Vazquez Surgical History Hx of right cataract extraction History of colonoscopy History of left cataract extraction (06/26/24) Hx of prior ablation treatment ~2019- venous ablation, Bilateral Lower Extremity History of breast biopsy History of laparoscopy History of hysterectomy History of cholecystectomy History of foot surgery Family History Grandfather (Maternal) Colorectal cancer Sister Colorectal cancer Denies family history of Ovarian cancer Breast cancer Social History Smoking Status: Never smoker Second Hand Exposure: No; Do You Dip or Chew Tobacco: No; Hx Alcohol Use: No Hx Substance Use: No Preferred Language: Turkmen Communication Ability: Effective Stair Builder Required: No Beliefs That Will Affect Care: None Current Living Situation: Spouse Feels Safe at Home: Yes Assistive Devices: None Allergies Allergies Allergy/AdvReac Type Severity Reaction Status Date / Time adhesive Allergy Intermediate Rash Verified 07/10/24 10:45 NSAIDS (Non-Steroidal AdvReac Severe GI Bleed Verified 07/10/24 10:45 Anti-Inflamma chlorhexidine AdvReac Intermediate Itching Verified 07/10/24 10:45 and Burning at site of use codeine AdvReac Mild Severe Verified 07/27/24 01:53 Stomach Pain, Cold, Clammy Home Meds Home Medications Medication Instructions Recorded Confirmed omega 2-vux-ijl-fish oil 1,000 mg 1 cap PO HS 02/22/18 07/27/24 (120 mg-180 mg) capsule (Fish Oil) cholecalciferol (vitamin D3) 50 2,000 unit PO HS 12/14/18 07/27/24 mcg (2,000 unit) tablet docusate sodium 100 mg capsule 200 mg PO HS Constipation 12/14/18 07/27/24 aspirin 81 mg tablet,delayed 162 mg PO HS 02/02/19 07/27/24 release (Diane Low Dose Aspirin) Oxygen Home 04/25/22 07/27/24 buspirone 5 mg tablet 5 mg PO BID 04/25/22 07/27/24 flecainide 50 mg tablet 50 mg PO Q12H 04/25/22 07/27/24 doxycycline hyclate 50 mg capsule 50 mg PO QAM rosacea 07/15/22 07/27/24 levothyroxine 175 mcg tablet 200 mcg PO HS 07/15/22 07/27/24 (Synthroid) verapamil 40 mg tablet 20 mg PO BID 07/15/22 07/27/24 famotidine 20 mg tablet 20 mg PO BID 05/01/23 07/27/24 omeprazole 40 mg capsule,delayed 40 mg PO BID 07/27/24 07/27/24 release sodium chloride 7 % for 4 ml NEB BIDR PRN DIRECTED 07/27/24 07/27/24 nebulization tiotropium bromide 2.5 1 puffs inhalation DAILY 07/27/24 07/27/24 mcg/actuation mist for inhalation (Spiriva Respimat) Previous Rx's Medication Instructions Recorded albuterol sulfate 2.5 mg/3 mL 2.5 mg (3 mL) inhalation QID PRN 02/21/19 (0.083 %) solution for nebulization shortness of breath or wheezing #180 vials fluticasone 500 mcg-salmeterol 50 1 puffs inhalation BID #180 ea 06/24/19 mcg/dose blistr powdr for inhalation (Advair Diskus) albuterol sulfate 90 mcg/actuation 2 puff inhalation Q4H PRN Wheezing 08/20/19 aerosol inhaler (Ventolin HFA) #54 grams nystatin 100,000 unit/gram topical 1 applic topical BID PRN 02/15/23 powder irritation 90 days #60 grams clobetasol 0.05 % topical cream 1 applic topical DAILY PRN Itching 05/01/23 90 days #45 grams Results & Data (ED) Vital Signs Vital Signs - 24 hr 07/26/24 20:31 07/26/24 22:31 07/26/24 23:34 Temperature 36.7 C Temperature Source Temporal Artery Scan Pulse Rate 100 H Pulse Rate [Finger] 77 70 Pulse Rhythm [Finger] Regular Respiratory Rate 18 19 20 Respiratory Effort / Characteristics Non-Labored Spontaneous Non-Labored Respiratory Depth Normal Normal Respiratory Pattern Regular Blood Pressure 156/112 H Blood Pressure [Left Arm] 172/98 H 197/102 H Blood Pressure Mean 126 Blood Pressure Mean [Left Arm] 122 133 Blood Pressure Position [Left Arm] Sitting Pulse Oximetry 92 99 95 Oxygen Delivery Method Room Air Nasal Cannula Room Air Oxygen Flow Rate 2 Sepsis Recent Fever Within 48 Hours No Sepsis New/Unexplained Change in Mental Status N/A Sepsis Action Taken by Nursing No Action Required 07/27/24 00:30 Temperature Temperature Source Pulse Rate Pulse Rate [Finger] 69 Pulse Rhythm [Finger] Respiratory Rate 20 Respiratory Effort / Characteristics Respiratory Depth Normal Respiratory Pattern Blood Pressure Blood Pressure [Left Arm] 172/95 H Blood Pressure Mean Blood Pressure Mean [Left Arm] 120 Blood Pressure Position [Left Arm] Pulse Oximetry 94 Oxygen Delivery Method Nasal Cannula Oxygen Flow Rate 2 Sepsis Recent Fever Within 48 Hours Sepsis New/Unexplained Change in Mental Status Sepsis Action Taken by Assisted Medications Current Medication List: was personally reviewed by me Laboratory Data Attestation: I reviewed the patient's lab results. 07/28/24 05:34 07/29/24 06:04 Lab Results 07/27/24 Range/Units 00:10 WBC 11.40 H (4.8-10.8) K/ul RBC 4.58 (4.20-5.40) M/uL Hgb 13.0 (12.0-16.0) g/dl Hct 40.8 (37.0-47.0) % MCV 89.1 (80.0-100.0) fL MCH 28.4 (25.0-34.0) pg MCHC 31.9 L (32.0-36.0) g/dL RDW Std Deviation 44.4 (36.4-46.3) fL RDW Coeff of Lilia 13.6 (11.5-14.5) % Plt Count 228 (130-400) K/uL MPV 10.5 (9.4-12.4) fL Immature Gran % (Auto) 0.6 % Neut % (Auto) 86.9 % Lymph % (Auto) 8.8 % [place] % (Auto) 2.4 % Eos % (Auto) 0.9 % Baso % (Auto) 0.4 % Neut # (Auto) 9.92 H (1.40-6.50) K/uL Lymph # (Auto) 1.00 L (1.20-3.40) K/uL [place] # (Auto) 0.27 (0.11-0.59) K/uL Eos # (Auto) 0.10 (0.00-0.50) K/uL Baso # (Auto) 0.04 (0.00-0.20) K/uL Immature Gran # (Auto) 0.07 (0.01-0.20) K/uL Sodium 140 (136-145) mmol/L Potassium 4.3 (3.5-5.1) mmol/L Chloride 104 (98-107) mmol/L Carbon Dioxide 31 (21-32) mmol/L Anion Gap 5 (3-11) BUN 13 (6-23) mg/dl Creatinine 0.58 L (0.6-1.2) mg/dl Est Cr Clr Drug Dosing 121.5 ml/min eGFR 100.36 BUN/Creatinine Ratio 22.4 H (10-20) Glucose 125 H (70-99(Fasting)) mg/dl Calcium 9.1 (8.6-10.3) mg/dl Total Bilirubin 0.5 (0.2-1.0) mg/dl AST 16 (13-39) U/L ALT 26 (7-52) U/L Alkaline Phosphatase 87 (34-104) U/L Total Protein 7.0 (6.0-8.3) gm/dl Albumin 3.9 (3.4-5.0) gm/dl Globulin 3.1 (2.5-4.0) gm/dl Albumin/Globulin Ratio 1.3 (0.9-2) Administered Medications Acetaminophen (Acetaminophen 500 Mg Tab) 1,000 mg PO Q8H [place] Stop: 08/26/24 10:59 Last Admin: 07/29/24 10:34 Dose: 1,000 mg Documented By: Admin: 07/29/24 03:29 Dose: 1,000 mg Documented By: Admin: 07/28/24 18:42 Dose: 1,000 mg Documented By: Admin: 07/28/24 11:55 Dose: 1,000 mg Documented By: Admin: 07/28/24 04:43 Dose: 1,000 mg Documented By: Admin: 07/27/24 19:03 Dose: 1,000 mg Documented By: Admin: 07/27/24 11:25 Dose: 1,000 mg Documented By: EVONNE Baclofen (Baclofen 10 Mg Tab) 5 mg PO BID [place] Stop: 08/27/24 08:59 Last Admin: 07/29/24 08:53 Dose: 5 mg Documented By: Admin: 07/28/24 19:48 Dose: 5 mg Documented By: Admin: 07/28/24 11:54 Dose: 5 mg Documented By: EVONNE Bismuth Subsalicylate (Bismuth Subsalicylate 262 Mg Chew) 2 tab PO Q30M PRN PRN Reason: Diarrhea Stop: 08/26/24 00:46 Last Admin: 07/29/24 05:45 Dose: 2 tab Documented By: Admin: 07/27/24 23:34 Dose: 2 tab Documented By: OSKAR Buspirone HCl (Buspirone 5 Mg Tab) 5 mg PO BID [place] Stop: 08/26/24 08:59 Last Admin: 07/29/24 08:54 Dose: 5 mg Documented By: Admin: 07/28/24 19:49 Dose: 5 mg Documented By: Admin: 07/28/24 11:49 Dose: 5 mg Documented By: Admin: 07/27/24 20:10 Dose: 5 mg Documented By: Admin: 07/27/24 07:29 Dose: 5 mg Documented By: EVONNE Docusate Sodium (Docusate Sodium 100 Mg Cap) 200 mg PO HS [place] Stop: 08/26/24 20:59 Last Admin: 07/28/24 19:47 Dose: 200 mg Documented By: Admin: 07/27/24 20:11 Dose: 200 mg Documented By: OSKAR Doxycycline Hyclate (Doxycycline Hyclate 50 Mg Cap) 50 mg PO QAM [place] Stop: 08/26/24 08:59 Last Admin: 07/29/24 08:55 Dose: 50 mg Documented By: Admin: 07/28/24 12:05 Dose: 50 mg Documented By: Admin: 07/27/24 07:29 Dose: 50 mg Documented By: EVONNE Enoxaparin Sodium (Enoxaparin Inj 40 Mg/0.4 Ml Syr) 40 mg SQ Q24H [place] Stop: 08/26/24 08:59 Last Admin: 07/27/24 07:30 Dose: 40 mg Documented By: EVONNE Famotidine (Famotidine 20 Mg Tab) 20 mg PO BID [place] Stop: 08/26/24 08:59 Last Admin: 07/29/24 08:56 Dose: 20 mg Documented By: Admin: 07/28/24 19:56 Dose: 20 mg Documented By: Admin: 07/28/24 11:54 Dose: 20 mg Documented By: Admin: 07/27/24 20:11 Dose: 20 mg Documented By: Admin: 07/27/24 08:29 Dose: 20 mg Documented By: EVONNE Flecainide Acetate (Flecainide Acetate 100 Mg Tablet) 50 mg PO Q12H [place] Stop: 08/26/24 08:59 Last Admin: 07/29/24 08:56 Dose: 50 mg Documented By: Admin: 07/28/24 19:49 Dose: 50 mg Documented By: Admin: 07/28/24 11:49 Dose: 50 mg Documented By: Admin: 07/27/24 20:11 Dose: 50 mg Documented By: Admin: 07/27/24 07:30 Dose: 50 mg Documented By: EVONNE Fluticasone/Vilanterol (Fluticasone/Vilanterol 100/25mcg 14 Puffs/Inhaler) 1 puffs INH DAILY [place] Stop: 08/26/24 08:59 Last Admin: 07/29/24 08:57 Dose: 1 puffs Documented By: Admin: 07/28/24 11:51 Dose: 1 puffs Documented By: Admin: 07/27/24 07:31 Dose: 1 puffs Documented By: EVONNE Gabapentin (Gabapentin 300 Mg Cap) 600 mg PO TID [place] Stop: 08/26/24 20:59 Last Admin: 07/29/24 08:58 Dose: 600 mg Documented By: Admin: 07/28/24 19:47 Dose: 600 mg Documented By: Admin: 07/28/24 13:26 Dose: Not Given Documented By: Admin: 07/28/24 11:48 Dose: 600 mg Documented By: Admin: 07/27/24 20:11 Dose: 600 mg Documented By: OSKAR Ketorolac Tromethamine (Ketorolac Tromethamine 15 Mg/Ml Vial) 15 mg IV Q6H PRN PRN Reason: Pain Stop: 08/01/24 03:33 Last Admin: 07/29/24 07:51 Dose: 15 mg Documented By: Admin: 07/27/24 05:43 Dose: 15 mg Documented By: NORBERTO Pantoprazole Sodium (Pantoprazole 40 Mg Tab) 40 mg PO BID [place] Stop: 08/26/24 08:59 Last Admin: 07/29/24 08:59 Dose: 40 mg Documented By: Admin: 07/28/24 19:49 Dose: 40 mg Documented By: Admin: 07/28/24 11:52 Dose: 40 mg Documented By: Admin: 07/27/24 20:16 Dose: 40 mg Documented By: Admin: 07/27/24 07:30 Dose: 40 mg Documented By: EVONNE Prednisone (Prednisone 50 Mg Tab) 50 mg PO QAM [facility] Stop: 08/27/24 08:59 Last Admin: 07/29/24 08:59 Dose: 50 mg Documented By: Admin: 07/28/24 11:49 Dose: 50 mg Documented By: EVONNE Sennosides (Sennosides 8.8 Mg/5 Ml Udc) 8.8 mg PO QAM [facility] Stop: 08/27/24 11:59 Last Admin: 07/29/24 08:59 Dose: 8.8 mg Documented By: Admin: 07/28/24 11:55 Dose: 8.8 mg Documented By: EVONNE Tramadol HCl (Tramadol Hcl 50 Mg Tablet) 50 mg PO Q8H PRN PRN Reason: Pain Stop: 08/27/24 08:38 Last Admin: 07/28/24 22:33 Dose: 50 mg Documented By: Admin: 07/28/24 13:38 Dose: 50 mg Documented By: EVONNE Umeclidinium [place] (Umeclidinium [place] 62.5mcg/Blister 7 Puffs/Inhaler) 1 puffs INH DAILY [place] Stop: 08/26/24 08:59 Last Admin: 07/29/24 08:58 Dose: 1 puffs Documented By: Admin: 07/28/24 11:51 Dose: 1 puffs Documented By: Admin: 07/27/24 07:31 Dose: 1 puffs Documented By: EVONNE Verapamil HCl (Verapamil Hcl 40 Mg Tab) 20 mg PO BID [place] Stop: 08/26/24 08:59 Last Admin: 07/29/24 08:58 Dose: Not Given Documented By: Admin: 07/28/24 19:48 Dose: 20 mg Documented By: Admin: 07/28/24 11:50 Dose: 20 mg Documented By: Admin: 07/27/24 20:16 Dose: 20 mg Documented By: Admin: 07/27/24 07:29 Dose: 20 mg Documented By: EW Discontinued Medications Acetaminophen (Acetaminophen 500 Mg Tab) 1,000 mg PO Q8H PRN PRN Reason: Pain & Pre PT Stop: 08/26/24 00:46 Last Admin: 07/27/24 02:54 Dose: 1,000 mg Documented By: NORBERTO Bismuth Subsalicylate (Bismuth Subsalicylate 262 Mg Chew) 2 tab PO NOW STA Stop: 07/27/24 00:48 Last Admin: 07/27/24 00:56 Dose: 2 tab Documented By: MATT Dexamethasone Sodium Phosphate (DexamethasonePf 10 Mg/Ml Vial) 10 mg IV NOW ONE Stop: 07/26/24 21:30 Last Admin: 07/26/24 21:42 Dose: 10 mg Documented By: HUGO Diazepam (Diazepam 5 Mg/Ml 10ml Vial) 5 mg IV NOW STA Stop: 07/26/24 21:30 Last Admin: 07/26/24 21:43 Dose: 5 mg Documented By: HUGO Fentanyl Citrate (Fentanyl Citrate Pf 100 Mcg/2 Ml Vial) 50 mcg IV NOW STA Stop: 07/26/24 21:32 Last Admin: 07/26/24 22:29 Dose: Not Given Documented By: HUGO Fentanyl Citrate (Fentanyl Citrate Pf 100 Mcg/2 Ml Vial) 25 mcg IV NOW ONE Stop: 07/26/24 22:18 Last Admin: 07/26/24 22:28 Dose: 25 mcg Documented By: HUGO Fentanyl Citrate (Fentanyl Citrate Pf 100 Mcg/2 Ml Vial) 25 mcg IV NOW ONE Stop: 07/26/24 22:44 Last Admin: 07/26/24 22:44 Dose: 25 mcg Documented By: HUGO Gabapentin (Gabapentin 300 Mg Cap) 300 mg PO NOW STA Stop: 07/27/24 07:51 Last Admin: 07/27/24 08:29 Dose: 300 mg Documented By: EW Gabapentin (Gabapentin 300 Mg Cap) 300 mg PO NOW STA Stop: 07/27/24 13:09 Last Admin: 07/27/24 14:28 Dose: 300 mg Documented By: EVONNE Gabapentin (Gabapentin 300 Mg Cap) 300 mg PO ONE ONE Stop: 07/27/24 17:24 Last Admin: 07/27/24 17:53 Dose: 300 mg Documented By: EVONNE Hydromorphone HCl (Hydromorphone Inj 0.5 Mg/0.5 Ml Syr) 0.5 mg IV NOW STA Stop: 07/27/24 00:01 Last Admin: 07/27/24 00:04 Dose: 0.5 mg Documented By: MATT Methylprednisolone 20 mg/ (Syringe) 0.32 mls @ 1.5 mls/min IV ONE ONE Stop: 07/27/24 02:46 Last Admin: 07/27/24 02:54 Dose: 1.5 mls/min Documented By: NORBERTO Methylprednisolone 20 mg/ (Syringe) 0.32 mls @ 1.5 mls/min IV NOW STA Stop: 07/27/24 07:51 Last Admin: 07/27/24 08:29 Dose: 1.5 mls/min Documented By: EVONNE Iopamidol (Iopamidol Inj 61% 15 Ml Vial) 1 ml INJ ONCE ONE Stop: 07/28/24 10:45 Last Admin: 07/28/24 10:44 Dose: 1 ml Documented By: ARNAV Ketorolac Tromethamine (Ketorolac 30 Mg/Ml Vial) 30 mg IV NOW STA Stop: 07/26/24 21:29 Last Admin: 07/26/24 21:42 Dose: 30 mg Documented By: HUGO Levothyroxine Sodium (Levothyroxine Sodium 200 Mcg Tablet) 200 mcg PO HS [place] Stop: 08/26/24 20:59 Last Admin: 07/27/24 20:16 Dose: 200 mcg Documented By: OSKAR Lidocaine (Lidocaine 5% 1 Patch) 1 patch TD NOW STA Stop: 07/27/24 00:48 Last Admin: 07/27/24 00:56 Dose: 1 patch Documented By: MATT Lidocaine HCl (Lidocaine 1% Local 20 Ml Vial) Confirm Administered Dose 3 ml .ROUTE .STK-MED ONE Stop: 07/28/24 09:20 Last Admin: 07/28/24 10:37 Dose: 3 ml Documented By: ARNAV Methylprednisolone Acetate (Methylprednisolone Acetate 80 Mg/Ml Vial) Confirm Administered Dose 80 mg .ROUTE .STK-MED ONE Stop: 07/28/24 09:20 Last Admin: 07/28/24 10:38 Dose: 80 mg Documented By: ARNAV Miscellaneous (Remove Lidoderm Patch) 1 each N/A ONE ONE Stop: 07/27/24 13:01 Last Admin: 07/27/24 14:28 Dose: 1 each Documented By: EW Morphine Sulfate (Morphine Sulfate 2 Mg/Ml [place]) 1 mg IV NOW STA Stop: 07/27/24 22:58 Last Admin: 07/27/24 23:09 Dose: 1 mg Documented By: OSKAR Morphine Sulfate (Morphine Sulfate 2 Mg/Ml [place]) 1 mg IV NOW STA Stop: 07/29/24 05:29 Last Admin: 07/29/24 05:45 Dose: 1 mg Documented By: NORBERTO Ondansetron HCl (Ondansetron Inj 2 Mg/Ml 2 Ml Vial) 4 mg IV NOW STA Stop: 07/26/24 21:29 Last Admin: 07/26/24 21:42 Dose: 4 mg Documented By: HUGO Prednisone (Prednisone 20 Mg Tab) 40 mg PO NOW STA Stop: 07/27/24 14:48 Last Admin: 07/27/24 16:43 Dose: 40 mg Documented By: EVONNE Sodium Chloride (Sodium Chloride 0.9% Pf Inj 10 Ml Vial) Confirm Administered Dose 10 ml .ROUTE .STK-MED ONE Stop: 07/28/24 09:20 Last Admin: 07/28/24 10:39 Dose: 3 ml Documented By: ARNAV Imaging Data Attestation: I personally reviewed and interpreted this imaging study as follows: Discharge Plan Visit Data Chief Complaint: Arm Pain Stated Complaint: RT ARM PAIN, NAUSEA ED Provider: Casimiro Lama ED Midlevel Provider: Cristobal Cramer Discharge Problem: Right arm pain, Cervical radiculopathy, acute Patient Disposition: Admitted As Inpatient Condition: Fair Discharge Instructions Interventions: ED Discharge Assessment Last Done: 07/27/24 01:30
[2024-07-26] MEDS: fentaNYL citrate PF 100 MCG/2 ML VIAL IV ONE ×2 (22:28→22:44)
[2024-07-26] MEDS: fentaNYL citrate PF 100 MCG/2 ML VIAL IV STA (22:29)
[2024-07-27] MEDS: HYDROmorphone INJ 0.5 MG/0.5 ML SYR IV STA (00:04)
--- NOTE | 2024-07-27 00:29 | History & Physical Report ---
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 ED evaluation pending all labs; C-spine XR and shoulder XR pending official read.; Provided with ondansetron 4 mg IV, ketorolac 30 mg IV, hydromorphone 0.5 mg IV, fentanyl citrate 50 mcg IV x 2, diazepam 5 mg IV, and dexamethasone 10 mg IV in ED. #R arm pain/? 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 Notes going to bed and L side neck "bothering" her. Pain radiated from the shoulder down to elbow, wrist, and 2nd and 3rd fingers over the course of 6 weeks. Utilizing ibuprofen, ice, and rest without relief. Is to follow-up with Ortho this coming Monday, but given the worsening pain, unable to tolerate managing pain at home. Of note, patient with many drug allergies and reportedly had reactions to opioids in the past in 2012 none of which were documented. Prior wrist (L) XR in 2019 with OA. Caution with pain management. Suspect mainly cervical in nature. - CBC does reveal mild leukocytosis 11.4, stable H&H - CBC am - Shoulder XR without fracture or dislocation - Cervical spine XR pending official read - Per my read, no acute findings - Lidocaine patch R shoulder - Zofran prn N/V, Pepto-Bismol prn abdominal pain - Tylenol, Dilaudid IV pain - MRI C spine pending - PT/OT ordered - appreciate assistance - Ortho consult not placed at time of admission - consider consult pending imaging results/clinical course #Asthma/COPD/bronchiectasis- Stable; 2L O2 via NC HS; Albuterol inhaler, albuterol nebulizer, Advair, Spiriva, saline nebs - continue #Psych- Buspirone - continue #Rosacea conjunctivitis- Doxycycline (suppressive) - continue #Paroxysmal A-fib- Stable; Not anticoagulated (low [id number] score); Flecainide, verapamil - continue #GERD- Famotidine, omeprazole - continue #Hypothyroidism- Levothyroxine - continue Dispo: Admit, med/sx VTE Prophylaxis: Lovenox This document was dictated utilizing [employer]. Please excuse any grammatical errors that may be secondary to use of this software. 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 States that approximately 4 to 6 weeks ago she started to notice R arm pain that initiated in the R shoulder over the course of the next few weeks radiating to her elbow and wrist, into the 2nd and 3rd fingers. Describes the pain as severe and constant, rating it 10 out of 10 at all times. 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 Patient took 4 Advil prior to arriving. Notes that this is a constant intense pain that is aching and occasionally will come in flares of worsening severity that would last a few seconds and then dull down. Today, the pain continued at the same intensity. States that at this present time, the lateral elbow is the most severe, and when she turns her palm to face up, the pain is worse. She does report that before going to bed last night, her neck was "bothering her" but she does not recall any injuries or movements that would have worsened the symptoms. Reports some weakness in the hand, stating that she has difficulties gripping things. She has never had something like this happen before. Denying chest pain, shortness of breath, palpitations. Patient has many drug allergies and adverse reactions per a 2013 surgery which multiple prior medications were trialed and she resulted in adverse reactions to the all of them. At the present, she did have some abdominal pain but no N/V. Having normal bowel movements. Of note, patient states that approximately 2 weeks ago she noticed that there were rings on her R hand were becoming tarnished which was abnormal for her as she had worn the same rings for extended periods of time without these changes. Reports she was told her "body is acidic" and that is why the rings were becoming tarnished. Overall denying D/C, LUTS, fever/chills, URI symptoms, numbness/tingling, syncope, weakness, or additional symptoms. ED evaluation reveals leukocytosis 11.40, stable H&H; CMP creatinine 0.58, BUN/creatinine ratio 22.4, glucose 125; C-spine XR and shoulder XR pending official read.; Provided with ondansetron 4 mg IV, ketorolac 30 mg IV, hydromorphone 0.5 mg IV, fentanyl citrate 50 mcg IV x 2, diazepam 5 mg IV, and dexamethasone 10 mg IV in ED. Please see Dr. Vargas's attestation for adjustments/additions to treatment plan. Allergies Allergy/AdvReac Type Severity Reaction Status Date / Time adhesive Allergy Intermediate Rash Verified 07/10/24 10:45 codeine Allergy Mild Severe Verified 07/10/24 10:45 Stomach Pain, Cold, Clammy aspirin AdvReac Severe GI Bleed Verified 07/10/24 10:45 NSAIDS (Non-Steroidal AdvReac Severe GI Bleed Verified 07/10/24 10:45 Anti-Inflamma chlorhexidine AdvReac Intermediate Itching Verified 07/10/24 10:45 and Burning at site of use Home Medications Medication Instructions Recorded Confirmed Type omega 8-cvw-xxe-fish oil 1,000 mg 1 cap PO HS 02/22/18 07/27/24 History (120 mg-180 mg) capsule (Fish Oil) cholecalciferol (vitamin D3) 50 2,000 unit PO HS 12/14/18 07/27/24 History mcg (2,000 unit) tablet docusate sodium 100 mg capsule 200 mg PO HS Constipation 12/14/18 07/27/24 History aspirin 81 mg tablet,delayed 162 mg PO HS 02/02/19 07/27/24 History release (Diane Low Dose Aspirin) albuterol sulfate 2.5 mg/3 mL 2.5 mg (3 mL) inhalation QID PRN 02/21/19 07/27/24 Rx (0.083 %) solution for nebulization shortness of breath or wheezing #180 vials fluticasone 500 mcg-salmeterol 50 1 puffs inhalation BID #180 ea 06/24/19 07/27/24 Rx mcg/dose blistr powdr for inhalation (Advair Diskus) albuterol sulfate 90 mcg/actuation 2 puff inhalation Q4H PRN Wheezing 08/20/19 07/27/24 Rx aerosol inhaler (Ventolin HFA) #54 grams Oxygen Home 04/25/22 07/27/24 History buspirone 5 mg tablet 5 mg PO BID 04/25/22 07/27/24 History flecainide 50 mg tablet 50 mg PO Q12H 04/25/22 07/27/24 History doxycycline hyclate 50 mg capsule 50 mg PO QAM rosacea 07/15/22 07/27/24 History levothyroxine 175 mcg tablet 200 mcg PO HS 07/15/22 07/27/24 History (Synthroid) verapamil 40 mg tablet 20 mg PO BID 07/15/22 07/27/24 History nystatin 100,000 unit/gram topical 1 applic topical BID PRN 02/15/23 07/27/24 Rx powder irritation 90 days #60 grams clobetasol 0.05 % topical cream 1 applic topical DAILY PRN Itching 05/01/23 07/27/24 Rx 90 days #45 grams famotidine 20 mg tablet 20 mg PO BID 05/01/23 07/27/24 History omeprazole 40 mg capsule,delayed 40 mg PO BID 07/27/24 07/27/24 History release sodium chloride 7 % for 4 ml NEB BIDR PRN DIRECTED 07/27/24 07/27/24 History nebulization tiotropium bromide 2.5 1 puffs inhalation DAILY 07/27/24 07/27/24 History mcg/actuation mist for inhalation (Spiriva Respimat) Past Med/Surg History Problem List Cervical radiculopathy, acute (Acute) Right arm pain (Acute) Bronchiectasis (Acute) Moderate persistent asthma Chronic cough History of pneumonia Productive cough Pain and swelling of right lower extremity Dyspnea Chest pain Intrinsic asthma Discharge planning issues Vertigo DVT prophylaxis Headache (Acute) Rosacea conjunctivitis Lichen planus Pneumonia GERD (gastroesophageal reflux disease) Venous insufficiency of both lower extremities Hypothyroid (Acute) Asthma (Acute) Afib (Acute) Pain (Acute 01/30/13) Medical History GERD (gastroesophageal reflux disease) History of chest pain pt denies at this time Cataract, right eye Reason for procedure 07/10/24 Chronic cough Hypothyroidism Venous insufficiency of both lower extremities Moderate persistent asthma daily inhaler and prn inhaler/neb; frequent use History of COVID-19 spring 2023- no hosp; resolved History of cellulitis foot, 10/2023 History of pneumonia last dx ~ 06/2023 Afib on flecainide daily; "They think maybe the beginning of it" - PSH Dr Vazquez Hx of blood clots hx superficial blood clots right leg, recent U/S done 05/15/24 [facility] - ASA daily On home oxygen therapy 2 lpm at night History of vertigo intermittent Pulmonary nodules monitoring Rosacea conjunctivitis on Doxycycline Bronchiectasis chronic, follows w/ [facility] pulmonology Hemoptysis states hx of, due to chronic cough/bronchiectasis - [place] [facility] [facility] [place] Dyspnea chronic SOB w/ exertion Lichen sclerosus Endometriosis IBS (irritable bowel syndrome) Enlarged thoracic aorta PSH Dr Vazquez Surgical History History of colonoscopy History of left cataract extraction (06/26/24) at follow up appt 06/27/[address] Alicia had "Increased Pressure" - at follow up 07/02/24 - "all was good" as per patient Hx of prior ablation treatment ~2018- venous ablation, Bilateral Lower Extremity History of breast biopsy History of laparoscopy History of hysterectomy History of cholecystectomy History of foot surgery Family History Grandfather (Maternal) Colorectal cancer Sister Colorectal cancer Denies family history of Ovarian cancer Breast cancer Social History Smoking Status: Never smoker Second Hand Exposure: No; Do You Dip or Chew Tobacco: No; Hx Alcohol Use: No Hx Substance Use: No Preferred Language: Spanish Communication Ability: Effective 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 Beliefs That Will Affect Care: None Current Living Situation: Spouse Feels Safe at Home: Yes Assistive Devices: Glasses and Oxygen - at Night Review of Systems Review of Systems: All systems reviewed & are unremarkable except as noted in Subjective Physical Exam Physical Exam: General: Tearful, clearly in pain Skin: Warm and dry; no skin changes noted Head: Normocephalic, atraumatic Eyes: PERRL, conjunctivae clear, sclera non-icteric; wearing glasses ENT: External ear and ear canal without swelling; nose atraumatic; good dentition, tongue normal appearance, pharynx normal Neck: Supple, no LAD Cardio: RRR, no M/G/R, S1 and S2 normal Resp: No respiratory distress, Lungs CTA in all lobes bilaterally, no wheezes, rales, or rhonchi ; wearing O2 via NC (2L at bedtime at baseline) Abdomen: Soft, symmetric, nontender; No masses or hepatosplenomegaly; Bowel sounds normoactive MSK: Tenderness to palpation of the entire RUE, most noticeable lateral elbow and trapezius; no deformities; 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 Neuro: Awake, alert; Sensation intact bilaterally; CN grossly intact Psych: Tearful; good judgement and insight. Results & Data Results & Data Vital Signs (Past 12 Hours) Vital Signs Temp Pulse Pulse Resp BP BP Pulse Ox 07/26/24 23:34 70 20 197/102 H 95 07/26/24 22:31 77 19 172/98 H 99 07/26/24 20:31 36.7 C 100 H 18 156/112 H 92 O2 Del Method O2 Flow Rate 07/26/24 23:34 Room Air 07/26/24 22:31 Nasal Cannula 2 07/26/24 20:31 Room Air Laboratory Results 07/27/24 00:10 WBC 11.40 H RBC 4.58 Hgb 13.0 Hct 40.8 MCV 89.1 MCH 28.4 MCHC 31.9 L RDW Std Deviation 44.4 RDW Coeff of Lilia 13.6 Plt Count 228 MPV 10.5 Immature Gran % (Auto) 0.6 Neut % (Auto) 86.9 Lymph % (Auto) 8.8 Chester % (Auto) 2.4 Eos % (Auto) 0.9 Baso % (Auto) 0.4 Neut # (Auto) 9.92 H Lymph # (Auto) 1.00 L Chester # (Auto) 0.27 Eos # (Auto) 0.10 Baso # (Auto) 0.04 Immature Gran # (Auto) 0.07 Sodium 140 Potassium 4.3 Chloride 104 Carbon Dioxide 31 Anion Gap 5 BUN 13 Creatinine 0.58 L Est Cr Clr Drug Dosing 121.5 eGFR 100.36 BUN/Creatinine Ratio 22.4 H Glucose 125 H Calcium 9.1 Total Bilirubin 0.5 AST 16 ALT 26 Alkaline Phosphatase 87 Total Protein 7.0 Albumin 3.9 Globulin 3.1 Albumin/Globulin Ratio 1.3 Medications Administered Ondansetron 4 mg IV Ketorolac 30 mg IV Hydromorphone 0.5 mg IV Fentanyl citrate 50 mcg IV Fentanyl citrate 25 mcg x 2 IV Diazepam 5 mg IV Dexamethasone 10 mg IV Code Status & VTE Plan Code Status Full Supervising Physician Co-Signing Physician Notes Patient seen and examined, chart reviewed, case discussed with Dana Hernandez PA-C and I agree with the assessment and plan as above except as otherwise noted Labs and images reviewed 63-year-old female with presents with 4-6 weeks of severe RIGHT arm pain now radiating down into her wrist. Has been able to manage with rest, heat, ice, and advil at home but last 24 hours has had 10/10 pain and is dropping things due to pain limitation. 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 Has had some LEFT neck paraspinal discomfort in the last day. Radial pulse is intact, cap refill is brist. Elbow flexion/extension, shoulder flexion/extension intact. Admitted with multimodal pain control MRIC-spine ordered. Strength appears more pain limited. Truly asymmetric loss of strength however given reports of dropping objects and symptoms do recommend evaluation for cervical stenosis. Agree with above PG Care Time/CCT Total # of Minutes Spent Total Time Spent with Patient: Total time spent is greater than 50% in coordination of care (as documented) at patient's floor/unit and/or counseling patient: Coding Level of Care Code 97894 INT INP/OBS CARE 3/75MIN Diagnoses Right arm pain M79.601
[2024-07-27 00:30] LABS: Basophils # (auto) 0.04 K/uL (0.00-0.20); Basophils % (auto) 0.4 %; Eosinophils % (auto) 0.9 %; Hematocrit (blood only) 40.8 % (37.0-47.0); Immature Granulocytes # (auto) 0.07 K/uL (0.01-0.20); Immature Granulocytes % (auto) 0.6 %; Lymphocytes % (auto) 8.8 %; Mean Corpuscular Hemoglobin 28.4 pg (25.0-34.0); Mean Corpuscular Hgb Conc 31.9 g/dL (32.0-36.0); Mean Corpuscular Volume 89.1 fL (80.0-100.0); Mean Platelet Volume 10.5 fL (9.4-12.4); Monocytes # (auto) 0.27 K/uL (0.11-0.59); Monocytes % (auto) 2.4 %; Neutrophils # (auto) 9.92 K/uL (1.40-6.50); Neutrophils % (auto) 86.9 %; Platelet Count 228 K/uL (130-400); RDW Coefficient of Variation 13.6 % (11.5-14.5); RDW Standard Deviation 44.4 fL (36.4-46.3); Red Blood Count 4.58 M/uL (4.20-5.40)
[2024-07-27] MEDS ORDERED: HYDROmorphone INJ 0.5 MG/0.5 ML SYR IV PRN ×2 (00:47)
[2024-07-27] MEDS ORDERED: ONDANSETRON INJ 2 MG/ML 2 ML VIAL IV PRN (00:47)
[2024-07-27 00:48] LABS: Albumin Globulin Ratio 1.3 (0.9-2); BUN Creatinine Ratio 22.4 (10-20); Bilirubin,Total 0.5 mg/dl (0.2-1.0); Calcium 9.1 mg/dl (8.6-10.3); Creatinine Clr Calc Pharmacy 121.5 ml/min; Globulin 3.1 gm/dl (2.5-4.0); Potassium 4.3 mmol/L (3.5-5.1)
[2024-07-27] MEDS: BISMUTH SUBSALICYLATE 262 MG CHEW PO STA (00:56)
[2024-07-27] MEDS: LIDOCAINE 5% 1 PATCH TD STA (00:56)
--- NOTE | 2024-07-27 01:21 | XRay Report ---
Exam(s): XR SHOULDER, 2+ views EXAM: XR Right Shoulder Complete, 2 or More Views CLINICAL HISTORY: Reason for exam: RIGHT SHOULDER PAIN RADIATING DOWN RIGHT ARM. TECHNIQUE: Two or more views of the right shoulder. COMPARISON: None FINDINGS: Bones/joints: No displaced fracture or dislocation identified. Mild degenerative changes of the right acromio clavicular joint and glenohumeral joint. No bony lesion. Soft tissues: Normal. No radiopaque foreign body identified. IMPRESSION: No displaced fracture or dislocation identified. Electronically signed by: Beverley Gary M.D. 07/27/24 01:21 AM
[2024-07-27] MEDS ORDERED: MELATONIN 3 MG TAB PO PRN (01:44)
[2024-07-27] MEDS ORDERED: ALBUTEROL 0.083% NEBU SOLN 3 ML VIAL INH PRN (01:44)
[2024-07-27] MEDS ORDERED: SODIUM CHLOR 7% 4 ML NEB NEB PRN (01:44)
[2024-07-27] MEDS ORDERED: ALBUTEROL HFA 8 GM INHALER INH PRN (01:44)
[2024-07-27] MEDS ORDERED: POLYETHYLENE (MIRALAX) 17 GM PACK PO PRN (01:44)
[2024-07-27] MEDS ORDERED: methylPREDNISolone 125 MG/2 ML VIAL IV STA ×2 (02:31→07:39)
[2024-07-27] MEDS: methylPREDNISolone 20 MG in SYRINGE 0 ML IV ONE (02:54)
[2024-07-27] MEDS: ACETAMINOPHEN 500 MG TAB PO PRN (02:54)
--- NOTE | 2024-07-27 03:16 | XRay Report ---
Exam(s): XR C SPINE, 4-5 views EXAM: XR Cervical Spine, 2 or 3 Views CLINICAL HISTORY: Reason for exam: RIGHT SHOULDER PAIN RADIATING DOWN RIGHT ARM. TECHNIQUE: Frontal and lateral views of the cervical spine. COMPARISON: No relevant prior studies available. FINDINGS: Vertebrae: Unremarkable. No definite fracture. Normal alignment. There is a moderately severe right C5-6 neural foraminal stenosis. There is diffuse osteopenia throughout the visualized bones. Disc spaces: No acute findings. No significant narrowing. Soft tissues: Unremarkable. IMPRESSION: No evidence of acute cervical spine pathology. There is a moderately severe right C5-6 neural foraminal stenosis. Recommend MRI of the cervical spine for further evaluation. Electronically signed by: Tiffanie Ford MD 07/27/24 03:15 AM
[2024-07-27] MEDS: KETOROLAC TROMETHAMINE 15 MG/ML VIAL IV PRN (05:43)
[2024-07-27 06:03] LABS: Hematocrit (blood only) 41.4 % (37.0-47.0); Hemoglobin 13.1 g/dl (12.0-16.0); Mean Corpuscular Hemoglobin 28.3 pg (25.0-34.0); Mean Corpuscular Hgb Conc 31.6 g/dL (32.0-36.0); Mean Corpuscular Volume 89.4 fL (80.0-100.0); Mean Platelet Volume 10.8 fL (9.4-12.4); Platelet Count 236 K/uL (130-400); RDW Coefficient of Variation 13.3 % (11.5-14.5); RDW Standard Deviation 43.8 fL (36.4-46.3); Red Blood Count 4.63 M/uL (4.20-5.40); White Blood Count 8.98 K/ul (4.8-10.8)
[2024-07-27] MEDS: VERAPAMIL HCL 40 MG TAB PO SCH (07:29)
[2024-07-27] MEDS: DOXYCYCLINE HYCLATE 50 MG CAP PO SCH (07:29)
[2024-07-27] MEDS: busPIRone 5 MG TAB PO SCH (07:29)
[2024-07-27] MEDS: ENOXAPARIN INJ 40 MG/0.4 ML SYR SQ SCH (07:30)
[2024-07-27] MEDS: FLECAINIDE ACETATE 100 MG TABLET PO SCH (07:30)
[2024-07-27] MEDS: PANTOprazole 40 MG TAB PO SCH (07:30)
[2024-07-27] MEDS: FLUTICASONE/VILANTEROL 100/25MCG 14 PUFFS/INHALER INH SCH (07:31)
[2024-07-27] MEDS: UMECLIDINIUM BROMIDE 62.5MCG/BLISTER 7 PUFFS/INHALER INH SCH (07:31)
[2024-07-27] MEDS: methylPREDNISolone 20 MG in SYRINGE 0 ML IV STA (08:29)
[2024-07-27] MEDS: GABAPENTIN 300 MG CAP PO STA ×2 (08:29→14:28)
[2024-07-27] MEDS: FAMOTIDINE 20 MG TAB PO SCH (08:29)
--- NOTE | 2024-07-27 09:20 | Hospitalist Progress Note ---
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 and worsening the night of arrival; radiates from the shoulder down to elbow, wrist, and back of hand - utilized ibuprofen, ice, and rest as an outpatient without relief; s/p ondansetron 4 mg IV, ketorolac 30 mg IV, hydromorphone 0.5 mg IV, fentanyl citrate 50 mcg IV x 2, diazepam 5 mg IV, and dexamethasone 10 mg IV in ED with some relief - of note, patient with many drug allergies and reportedly had reactions to opioids in the past in 2012 none of which were documented - shoulder XR without fracture or dislocation; cervical spine XR showing moderately severe C5-C6 cervical foraminal stenosis - pain control: tylenol scheduled, lidocaine patch, toradol PRN- will trial gabapentin 300mg and another dose of 20mg solumedrol to target suspected neuropathic pain - MRI pending; consider ortho spine consult pending results Asthma/COPD/bronchiectasis - stable; chronic 2L O2 via NC HS - continue home meds Anxiety - continue home buspirone Rosacea conjunctivitis - continue daily doxycycline Paroxysmal A-fib - not anticoagulated d/t low [id number] score - continue home flecainide and verapamil GERD - continue famotidine and omeprazole Hypothyroidism - continue home levothyroxine Dispo: med/surg VTE ppx: lovenox Code: full Admission and Anticipated Discharge Date Admission Date: July 27, 2024 Supervising Physician Co-Signing Physician Notes I personally examined the patient and verified monique points of history and exam, discussed case, and agree with decision making and plan documented by Dr. Vasquez. Severe right sided cervical radicular pain consistent with C5-C6 foraminal narrowing. Patient having some improvement with pain regimen. Pain management consulted for evaluation. Subjective Pt in tears when I entered the room this AM. She explains her pain was fairly well controlled while she was laying down but it was extremely exacerbated by getting up to go to the bathroom. She was still in extreme pain in her right arm, mostly in her shoulder/upper arm. Sometimes it radiates down into the back of her hand. She has never had pain this before. Review of Systems Review of Systems: As per HPI Physical Exam Physical Exam: Constitutional: pt tearful and in moderate distress HEENT: normocephalic, no conjunctival injection CV: clinically well perfused Respiratory: no increased work of breathing MSK: no gross deformities noted; pt barely able to move right arm secondary to pain Skin: warm, dry, no rashes Neuro: alert, oriented Results & Data Results & Data Vital Signs (Past 12 Hours) Vital Signs Temp Pulse Resp BP Pulse Ox O2 Del Method O2 Flow Rate 07/27/24 07:08 36.3 C L 61 18 115/77 96 Nasal Cannula 2 07/27/24 01:40 Nasal Cannula 2 07/27/24 01:40 Nasal Cannula 2 07/27/24 01:40 36.6 C 75 18 159/92 H 97 Nasal Cannula 2 07/27/24 01:00 65 20 165/96 H 92 Room Air 07/27/24 00:30 69 20 172/95 H 94 Nasal Cannula 2 07/26/24 23:34 70 20 197/102 H 95 Room Air 07/26/24 22:31 77 19 172/98 H 99 Nasal Cannula 2 Resident Activity Tracking Resident Involvement: Resident Care Provided Care Provided: Adult Hospital Medicine
[2024-07-27] MEDS: ACETAMINOPHEN 500 MG TAB PO SCH (11:25)
--- NOTE | 2024-07-27 13:09 | Magnetic Resonance Report ---
MR cervical spine wo con HISTORY: 63 years-old Female Cervical radiculopathy, severe RUE pain subacute to chronic neck pain w ith right upper family radicular symptoms COMPARISON: Cervical spine x-rays 07/26/2024 TECHNIQUE: Multiplanar multisequence MRI of the cervical spine was obtained without IV contrast FINDINGS: Study is mildly motion degraded. There is normal signal within the imaged posterior fossa structures, brainstem, cervical and imaged upper thoracic spinal cord. No acute fracture, subluxation, endplate erosion or marrow replacing process. No epidural or paraspinal fluid collections. C2-C3: Mild intervertebral disc space narrowing with uncovertebral hypertrophy and small posterior an nular disc bulge. [id number] facet arthrosis. No central canal or foraminal narrowing. C3-C4: Mild intervertebral disc space narrowing with uncovertebral hypertrophy and small posterior an nular disc bulge. [id number] facet arthrosis. No central canal or foraminal narrowing. C4-C5: Mild intervertebral disc space narrowing with uncovertebral hypertrophy and small circumferent ial annular disc bulge. [id number]-jr-[id number] facet arthrosis. Central canal and left neural foramen are p atent. Mild right foraminal narrowing. C5-C6: Mild intervertebral disc space narrowing with uncovertebral hypertrophy and mild to moderate f acet arthrosis. Small posterior disc osteophyte complex which is eccentric to the right neural forame n. Central canal and left neural foramen appear patent. Moderate right foraminal narrowing. C6-C7: Mild intervertebral disc space narrowing. Uncovertebral hypertrophy with small posterior annul ar disc bulge. [id number] facet arthrosis. No central canal or foraminal narrowing. C7-T1: Mild to moderate facet arthrosis. No central canal or foraminal narrowing. IMPRESSION: 1. Motion degraded exam with suboptimal evaluation of the central canal and neural foramen. 2. Discogenic degeneration with facet arthrosis as above. 3. There is suggestion of moderate right-sided foraminal narrowing at C5-C6. 4. No high-grade central canal or foraminal narrowing identified. ACT 112: Negative or not required by law. The above report was generated using voice recognition software. It may contain grammatical, syntax o r spelling errors. Electronically signed by: Jalen Willard M.D. 07/27/2024 1:07 PM
[2024-07-27] MEDS: predniSONE 20 MG TAB PO STA (16:43)
[2024-07-27] MEDS: GABAPENTIN 300 MG CAP PO ONE (17:53)
[2024-07-27] MEDS: DOCUSATE SODIUM 100 MG CAP PO SCH (20:11)
[2024-07-27] MEDS: GABAPENTIN 300 MG CAP PO SCH (20:11)
[2024-07-27] MEDS: LEVOTHYROXINE SODIUM 200 MCG TABLET PO SCH (20:16)
[2024-07-27] MEDS ORDERED: GABAPENTIN 300 MG CAP PO SCH (21:00)
[2024-07-27] MEDS: MoRPHine SULFATE 2 MG/ML CARP IV STA (23:09)
[2024-07-27] MEDS: BISMUTH SUBSALICYLATE 262 MG CHEW PO PRN (23:34)
[2024-07-28 06:37] LABS: Hematocrit (blood only) 42.8 % (37.0-47.0); Hemoglobin 13.6 g/dl (12.0-16.0); Mean Corpuscular Hemoglobin 28.5 pg (25.0-34.0); Mean Corpuscular Hgb Conc 31.8 g/dL (32.0-36.0); Mean Corpuscular Volume 89.5 fL (80.0-100.0); Platelet Count 287 K/uL (130-400); RDW Coefficient of Variation 13.2 % (11.5-14.5); RDW Standard Deviation 43.5 fL (36.4-46.3); Red Blood Count 4.78 M/uL (4.20-5.40); White Blood Count 11.96 K/ul (4.8-10.8)
[2024-07-28 08:05] LABS: BUN Creatinine Ratio 26.9 (10-20); Calcium 9.6 mg/dl (8.6-10.3); Creatinine Clr Calc Pharmacy 133.4 ml/min
--- NOTE | 2024-07-28 08:17 | Pain Management Consultation ---
Date of Consultation July 28, 2024 Assessment & Plan (1) Cervical radiculopathy, acute: (2) Protrusion of cervical intervertebral disc: Plan 1. Discussed the patient's MRI and plain film x-rays in detail with her today. Discussed that she has a eccentric to the right posterior disc protrusion at C5- 6 with moderate neuroforaminal stenosis and mild right neuroforaminal stenosis at C4-5 which can account for some of her symptoms but not to the magnitude of perceived motor weakness demonstrated on exam today. Will plan for cervical epidural steroid injection this a.m. She was counseled on the risk, benefits, expectations and she agrees to proceed. Consent was obtained. Her Lovenox has been held greater than 24 hours. Will plan for light moderate sedation for periprocedure anxiolysis. 2. Recommend formal physical therapy postdischarge. 3. Agree with gabapentin 600 mg p.o. 3 times daily. 4. Recommend consideration of conversion from BuSpar to Cymbalta to augment descending pain regulatory pathways. Patient should discuss this as an outpatient with her primary care physician. 5. Recommend utilization of tramadol 50 mg p.o. Q8 as needed pain, Lidoderm patch, baclofen 5 to 10 mg p.o. every 12 as needed spasm. 6. Will follow-up with the patient tomorrow. The patient was informed that epidural steroid injections can take 10 to 14 days for maximal effect. Therefore, she will need outpatient follow-up in our office which will be arranged prior to discharge. History of Present Illness Attending Physician: Sai Alvarez MD History of Present Illness 63-year-old female with 6-week history of right sided neck and arm pain. She states that she initially thought her pain was originating from her right shoulder and was utilizing NSAIDs, Tylenol heat ice and rest. Unfortunately over the last week her pain had increased in appeared now more radicular in nature from the base of her cervical spine radiating down C5 and 6 dermatomes right side only. Pain ranges between 4-10 out of 10 currently 7 out of 10. She notes pain is sharp stabbing shooting constant relentless. She reports minimal benefit with oral steroids and Tylenol. She reports significant sleep interference as well as interference with activities of daily living secondary to pain. She is right-hand dominant and has been having difficulties utilizing her arm secondary to pain. She reports she has fairly close to normal motor strength but is unable to move her arm secondary to extreme pain with movement. She has not completed any physical therapy or had prior interventional pain management. She reports she has had some mild neck pain in the past but nothing to this magnitude. She reports frustration and emotional grief stating" I just want this pain to stop" while crying on exam. She denies any bowel or bladder incontinence, saddle anesthesia, fever, chills, night sweats, dropping of items, discoordination of hand movements.. She does admit to difficulty moving arm secondary to pain. Pain Assessment Full Body Front + Back: 2 1. 2. [facility] Combined Pain Scale: 7-Severe - Pain prevents productive activity. Impossible to tolerate. Pain scale - at its best (0-10): 4 Pain scale - at its worst (0-10): 10 Allergies Allergy/AdvReac Type Severity Reaction Status Date / Time adhesive Allergy Intermediate Rash Verified 07/10/24 10:45 NSAIDS (Non-Steroidal AdvReac Severe GI Bleed Verified 07/10/24 10:45 Anti-Inflamma chlorhexidine AdvReac Intermediate Itching Verified 07/10/24 10:45 and Burning at site of use codeine AdvReac Mild Severe Verified 07/27/24 01:53 Stomach Pain, Cold, Clammy Home Medications Medication Instructions Recorded Confirmed Type omega 9-kqy-nzz-fish oil 1,000 mg 1 cap PO HS 02/22/18 07/27/24 History (120 mg-180 mg) capsule (Fish Oil) cholecalciferol (vitamin D3) 50 2,000 unit PO HS 12/14/18 07/27/24 History mcg (2,000 unit) tablet docusate sodium 100 mg capsule 200 mg PO HS Constipation 12/14/18 07/27/24 History aspirin 81 mg tablet,delayed 162 mg PO HS 02/02/19 07/27/24 History release (Diane Low Dose Aspirin) albuterol sulfate 2.5 mg/3 mL 2.5 mg (3 mL) inhalation QID PRN 02/21/19 07/27/24 Rx (0.083 %) solution for nebulization shortness of breath or wheezing #180 vials fluticasone 500 mcg-salmeterol 50 1 puffs inhalation BID #180 ea 06/24/19 07/27/24 Rx mcg/dose blistr powdr for inhalation (Advair Diskus) albuterol sulfate 90 mcg/actuation 2 puff inhalation Q4H PRN Wheezing 08/20/19 07/27/24 Rx aerosol inhaler (Ventolin HFA) #54 grams Oxygen Home 04/25/22 07/27/24 History buspirone 5 mg tablet 5 mg PO BID 04/25/22 07/27/24 History flecainide 50 mg tablet 50 mg PO Q12H 04/25/22 07/27/24 History doxycycline hyclate 50 mg capsule 50 mg PO QAM rosacea 07/15/22 07/27/24 History levothyroxine 175 mcg tablet 200 mcg PO HS 07/15/22 07/27/24 History (Synthroid) verapamil 40 mg tablet 20 mg PO BID 07/15/22 07/27/24 History nystatin 100,000 unit/gram topical 1 applic topical BID PRN 02/15/23 07/27/24 Rx powder irritation 90 days #60 grams clobetasol 0.05 % topical cream 1 applic topical DAILY PRN Itching 05/01/23 07/27/24 Rx 90 days #45 grams famotidine 20 mg tablet 20 mg PO BID 05/01/23 07/27/24 History omeprazole 40 mg capsule,delayed 40 mg PO BID 07/27/24 07/27/24 History release sodium chloride 7 % for 4 ml NEB BIDR PRN DIRECTED 07/27/24 07/27/24 History nebulization tiotropium bromide 2.5 1 puffs inhalation DAILY 07/27/24 07/27/24 History mcg/actuation mist for inhalation (Spiriva Respimat) Pain History Pain Intensity Pain scale - at its best (0-10): 4 Pain scale - at its worst (0-10): 10 Patient History Medical History (Updated 07/28/24 @ 08:15 by Rossi Cortes DO) Protrusion of cervical intervertebral disc Hemoptysis Solitary pulmonary nodule PAF (paroxysmal atrial fibrillation) Obesity (BMI 30-39.9) Joint pain, knee Hyperlipidemia Fibrocystic breast disease GERD (gastroesophageal reflux disease) History of chest pain pt denies at this time Chronic cough Hypothyroidism Venous insufficiency of both lower extremities Moderate persistent asthma daily inhaler and prn inhaler/neb; frequent use History of COVID-spring- no hosp; resolved History of cellulitis foot, 10/2023 History of pneumonia last dx ~ 06/2023 Afib on flecainide daily; "They think maybe the beginning of it" - [facility] Dr Vazquez Hx of blood clots hx superficial blood clots right leg, recent U/S done 05/15/24 [facility] - ASA daily On home oxygen therapy 2 lpm at night History of vertigo intermittent Pulmonary nodules monitoring Rosacea conjunctivitis on Doxycycline Bronchiectasis chronic, [place] [facility] [place] Hemoptysis states hx of, due to chronic cough/bronchiectasis - [place] [facility] [place] Dyspnea chronic SOB w/ exertion Lichen sclerosus Endometriosis IBS (irritable bowel syndrome) Enlarged thoracic aorta PS Dr Vazquez Surgical History (Updated 07/28/24 @ 08:07 by Rossi Cortes DO) Hx of right cataract extraction History of colonoscopy History of left cataract extraction (06/26/24) Hx of prior ablation treatment ~2018- venous ablation, Bilateral Lower Extremity History of breast biopsy History of laparoscopy History of hysterectomy History of cholecystectomy History of foot surgery Family History Grandfather (Maternal) Colorectal cancer Sister Colorectal cancer Denies family history of Ovarian cancer Breast cancer Social History Smoking Status: Never smoker Second Hand Exposure: No; Do You Dip or Chew Tobacco: No; Hx Alcohol Use: No Hx Substance Use: No Preferred Language: Cymro Communication Ability: Effective Research Analyst Required: No Beliefs That Will Affect Care: None Current Living Situation: Spouse Other Information That Helps Us Care for You: No Feels Safe at Home: Yes Safety Concerns: Feels Safe At This Time Assistive Devices: None Physical Exam 2 Physical Exam: Constitutional: Well-developed, well-nourished, healthy-appearing, obese and deconditioned Psych: Awake, alert, and oriented 3 with tearful affect, often crying during examination. Recent memory appears grossly intact Eyes: Pupils are equally round and reactive to light with normal size pupils, eyelids appear normal Ear, nose, mouth, and throat: Moist nasal and oral membranes, lips and tongues appear normal, no external ear abnormalities are noted Neck: The trachea is midline without deviation and no thyromegaly is noted Respiratory: Normal respiratory effort without distress, no audible wheezes or rhonchi CV: Normal S1 and S2, warm distal extremity Chest: Deferred Musculoskeletal: Head is normocephalic and atraumatic, gait not observed but patient is able to easily move in the bed during examination Cervical: Lordotic curve: Normal Range of motion is decreased with extension, acceptable flexion, side-bending, rotation Tenderness: Moderately-tender over the axial midline Facet provocation: Marginally positive bilaterally Hoffmans maneuver: Negative bilaterally Step-off injuries: None Strength: Strength is equal bilaterally with 5 out of 5 strength left upper extremity, 4+ out of 5 globally right upper extremity though patient has poor effort Sensation of upper extremities: Intact bilaterally Deep tendon reflexes: Rated at 1+ in bilateral biceps, triceps, brachial radialis Myofascial spasm: Mild to moderate cervical paraspinal musculature and trapezius spasm. A few scattered discrete trigger points noted Thoracic: Kyphotic curve: Normal Range of motion is normal with extension, flexion, side-bending, rotation Lumbar: Lordotic curve: Normal Range of motion is normal with extension, flexion, side-bending, rotation Strength: Strength is grossly equal bilaterally with 5 out of 5 strength in all planes Sensation of lower extremities: Intact bilaterally Pathologic reflexes noted: None Skin: No rashes, lesions, ulcers, or induration noted Neuro: No nystagmus noted, the tongue is midline, the patient is able to rotate their head bilaterally : Deferred Results (Pain Clinic) Laboratory Review Laboratory results: personally reviewed by me and pertinent findings noted below (Mild leukocytosis noted without shift likely reactive to high-dose steroids) Diagnostic Review MRI: non enhanced, reports reviewed, images reviewed and findings discussed with patient MRI Findings: 07/27/24 MR cervical spine wo con HISTORY: 63 years-old Female Cervical radiculopathy, severe RUE pain subacute to chronic neck pain with right upper family radicular symptoms COMPARISON: Cervical spine x-rays 07/26/2024 TECHNIQUE: Multiplanar multisequence MRI of the cervical spine was obtained without IV contrast FINDINGS: Study is mildly motion degraded. There is normal signal within the imaged posterior fossa structures, brainstem, cervical and imaged upper thoracic spinal cord. No acute fracture, subluxation, endplate erosion or marrow replacing process. No epidural or paraspinal fluid collections. C2-C3: Mild intervertebral disc space narrowing with uncovertebral hypertrophy and small posterior annular disc bulge. [id number] facet arthrosis. No central canal or foraminal narrowing. C3-C4: Mild intervertebral disc space narrowing with uncovertebral hypertrophy and small posterior annular disc bulge. Ewpj-ko-bqeosbxa facet arthrosis. No central canal or foraminal narrowing. C4-C5: Mild intervertebral disc space narrowing with uncovertebral hypertrophy and small circumferential annular disc bulge. Ghnv-[id number]-ddxpfrhb facet arthrosis. Central canal and left neural foramen are patent. Mild right foraminal narrowing. C5-C6: Mild intervertebral disc space narrowing with uncovertebral hypertrophy and mild to moderate facet arthrosis. Small posterior disc osteophyte complex which is eccentric to the right neural foramen. Central canal and left neural foramen appear patent. Moderate right foraminal narrowing. C6-C7: Mild intervertebral disc space narrowing. Uncovertebral hypertrophy with small posterior annular disc bulge. Kbiy-hy-[id number] facet arthrosis. No central canal or foraminal narrowing. C7-T1: Mild to moderate facet arthrosis. No central canal or foraminal narrowing. IMPRESSION: 1. Motion degraded exam with suboptimal evaluation of the central canal and neural foramen. 2. Discogenic degeneration with facet arthrosis as above. 3. There is suggestion of moderate right-sided foraminal narrowing at C5-C6. 4. No high-grade central canal or foraminal narrowing identified. Radiology: reports reviewed and findings discussed with patient Radiology Findings: 07/26/2024 Exam(s): XR SHOULDER, 2+ views EXAM: XR Right Shoulder Complete, 2 or More Views CLINICAL HISTORY: Reason for exam: RIGHT SHOULDER PAIN RADIATING DOWN RIGHT ARM. TECHNIQUE: Two or more views of the right shoulder. COMPARISON: None FINDINGS: Bones/joints: No displaced fracture or dislocation identified. Mild degenerative changes of the right acromio clavicular joint and glenohumeral joint. No bony lesion. Soft tissues: Normal. No radiopaque foreign body identified. IMPRESSION: No displaced fracture or dislocation identified. 07/26/2024 EXAM: XR Cervical Spine, 2 or 3 Views CLINICAL HISTORY: Reason for exam: RIGHT SHOULDER PAIN RADIATING DOWN RIGHT ARM. TECHNIQUE: Frontal and lateral views of the cervical spine. COMPARISON: No relevant prior studies available. FINDINGS: Vertebrae: Unremarkable. No definite fracture. Normal alignment. There is a moderately severe right C5-6 neural foraminal stenosis. There is diffuse osteopenia throughout the visualized bones. Disc spaces: No acute findings. No significant narrowing. Soft tissues: Unremarkable. IMPRESSION: No evidence of acute cervical spine pathology. There is a moderately severe right C5-6 neural foraminal stenosis. Recommend MRI of the cervical spine for further evaluation.
--- NOTE | 2024-07-28 08:42 | Anesthesiology Consultation ---
Date of Service July 28, 2024 Assessment & Plan Chart Review Chart Review: Acceptable Risk for Surgery Consults Requested none ASA ASA3 Proposed Anesthesia Anesthesia Type: MAC (Moderate sedation) Risk / Benefits Reviewed With: PT / POA / Parent / Guardian, Accepts Plan and Informed Consent Obtained History Surgery Operation Date: 07/28/24 10:00 Proposed Procedures p Epidural Steriod Injection - Rossi Cortes, Height/Weight Height: 5 ft 7 in Weight: 103.419 kg Allergies Allergy/AdvReac Type Severity Reaction Status Date / Time adhesive Allergy Intermediate Rash Verified 07/10/24 10:45 NSAIDS (Non-Steroidal AdvReac Severe GI Bleed Verified 07/10/24 10:45 Anti-Inflamma chlorhexidine AdvReac Intermediate Itching Verified 07/10/24 10:45 and Burning at site of use codeine AdvReac Mild Severe Verified 07/27/24 01:53 Stomach Pain, Cold, Clammy Medications Home Medications Medication Instructions Recorded Confirmed Last Taken omega 5-yie-wlm-fish oil 1,000 mg 1 cap PO HS 02/22/18 07/27/24 07/25/24 (120 mg-180 mg) capsule (Fish Oil) cholecalciferol (vitamin D3) 50 2,000 unit PO HS 12/14/18 07/27/24 07/25/24 mcg (2,000 unit) tablet docusate sodium 100 mg capsule 200 mg PO HS Constipation 12/14/18 07/27/24 07/25/24 aspirin 81 mg tablet,delayed 162 mg PO HS 02/02/19 07/27/24 07/25/24 release (Diane Low Dose Aspirin) albuterol sulfate 2.5 mg/3 mL 2.5 mg (3 mL) inhalation QID PRN 02/21/19 07/27/24 07/09/24 (0.083 %) solution for nebulization shortness of breath or wheezing #180 vials fluticasone 500 mcg-salmeterol 50 1 puffs inhalation BID #180 ea 06/24/19 07/27/24 07/25/24 mcg/dose blistr powdr for inhalation (Advair Diskus) albuterol sulfate 90 mcg/actuation 2 puff inhalation Q4H PRN Wheezing 08/20/19 07/27/24 07/09/24 aerosol inhaler (Ventolin HFA) #54 grams Oxygen Home 04/25/22 07/27/24 Unknown buspirone 5 mg tablet 5 mg PO BID 04/25/22 07/27/24 07/25/24 flecainide 50 mg tablet 50 mg PO Q12H 04/25/22 07/27/24 07/25/24 doxycycline hyclate 50 mg capsule 50 mg PO QAM rosacea 07/15/22 07/27/24 07/25/24 levothyroxine 175 mcg tablet 200 mcg PO HS 07/15/22 07/27/24 07/25/24 (Synthroid) verapamil 40 mg tablet 20 mg PO BID 07/15/22 07/27/24 07/25/24 nystatin 100,000 unit/gram topical 1 applic topical BID PRN 02/15/23 07/27/24 Unknown powder irritation 90 days #60 grams clobetasol 0.05 % topical cream 1 applic topical DAILY PRN Itching 05/01/23 07/27/24 Unknown 90 days #45 grams famotidine 20 mg tablet 20 mg PO BID 05/01/23 07/27/24 07/25/24 omeprazole 40 mg capsule,delayed 40 mg PO BID 07/27/24 07/27/24 07/25/24 release sodium chloride 7 % for 4 ml NEB BIDR PRN DIRECTED 07/27/24 07/27/24 Unknown nebulization tiotropium bromide 2.5 1 puffs inhalation DAILY 07/27/24 07/27/24 07/25/24 mcg/actuation mist for inhalation (Spiriva Respimat) Active Medications Generic Name Dose Route Start Last Admin Trade Name Freq PRN Reason Stop Dose Admin Acetaminophen 1,000 mg 07/27/24 11:00 07/28/24 04:43 Acetaminophen 500 Mg Tab PO 08/26/24 10:59 1,000 mg Q8H [place] Administration Bismuth Subsalicylate 2 tab 07/27/24 00:47 07/27/24 23:34 Bismuth Subsalicylate 262 Mg Chew PO 08/26/24 00:46 2 tab Q30M PRN Administration Diarrhea Buspirone HCl 5 mg 07/27/24 09:00 07/27/24 20:10 Buspirone 5 Mg Tab PO 08/26/24 08:59 5 mg BID [place] Administration Docusate Sodium 200 mg 07/27/24 21:00 07/27/24 20:11 Docusate Sodium 100 Mg Cap PO 08/26/24 20:59 200 mg HS [place] Administration Doxycycline Hyclate 50 mg 07/27/24 09:00 07/27/24 07:29 Doxycycline Hyclate 50 Mg Cap PO 08/26/24 08:59 50 mg QAM [place] Administration Enoxaparin Sodium 40 mg 07/27/24 09:00 07/27/24 07:30 Enoxaparin Inj 40 Mg/0.4 Ml Syr SQ 08/26/24 08:59 40 mg Q24H [place] Administration Famotidine 20 mg 07/27/24 09:00 07/27/24 20:11 Famotidine 20 Mg Tab PO 08/26/24 08:59 20 mg BID [place] Administration Flecainide Acetate 50 mg 07/27/24 09:00 07/27/24 20:11 Flecainide Acetate 100 Mg Tablet PO 08/26/24 08:59 50 mg Q12H [place] Administration Fluticasone/Vilanterol 1 puffs 07/27/24 09:00 07/27/24 07:31 Fluticasone/Vilanterol 100/25mcg 14 Puffs/Inhaler INH 08/26/24 08:59 1 puffs DAILY [place] Administration Gabapentin 600 mg 07/27/24 21:00 07/27/24 20:11 Gabapentin 300 Mg Cap PO 08/26/24 20:59 600 mg TID [place] Administration Ketorolac Tromethamine 15 mg 07/27/24 03:34 07/27/24 05:43 Ketorolac Tromethamine 15 Mg/Ml Vial IV 08/01/24 03:33 15 mg Q6H PRN Administration Pain Levothyroxine Sodium 200 mcg 07/27/24 21:00 07/27/24 20:16 Levothyroxine Sodium 200 Mcg Tablet PO 08/26/24 20:59 200 mcg HS [place] Administration Pantoprazole Sodium 40 mg 07/27/24 09:00 07/27/24 20:16 Pantoprazole 40 Mg Tab PO 08/26/24 08:59 40 mg BID [place] Administration Umeclidinium [place] 1 puffs 07/27/24 09:00 07/27/24 07:31 Umeclidinium [place] 62.5mcg/Blister 7 Puffs/Inhaler INH 08/26/24 08:59 1 puffs DAILY [place] Administration Verapamil HCl 20 mg 07/27/24 09:00 07/27/24 20:16 Verapamil Hcl 40 Mg Tab PO 08/26/24 08:59 20 mg BID [place] Administration NPO Date Last Intake of Fluids: 07/27/24 Time Last Intake of Fluids: 23:59 Date Last Intake of Solids: 07/27/24 Time Last Intake of Solids: 20:00 Past Medical History Medical History Protrusion of cervical intervertebral disc Hemoptysis Solitary pulmonary nodule PAF (paroxysmal atrial fibrillation) Obesity (BMI 30-39.9) Joint pain, knee Hyperlipidemia Fibrocystic breast disease GERD (gastroesophageal reflux disease) History of chest pain pt denies at this time Chronic cough Hypothyroidism Venous insufficiency of both lower extremities Moderate persistent asthma daily inhaler and prn inhaler/neb; frequent use History of COVID-spring- no hosp; resolved History of cellulitis foot, 10/2023 History of pneumonia last dx ~ 06/2023 Afib on flecainide daily; "They think maybe the beginning of it" - [facility] Dr Vazquez Hx of blood clots hx superficial blood clots right leg, recent U/S done 05/15/24 [place] - ASA daily On home oxygen therapy 2 lpm at night History of vertigo intermittent Pulmonary nodules monitoring Rosacea conjunctivitis on Doxycycline Bronchiectasis chronic, follows w/ [facility] pulmonology Hemoptysis states hx of, due to chronic cough/bronchiectasis - [place] [facility] [place] Dyspnea chronic SOB w/ exertion Lichen sclerosus Endometriosis IBS (irritable bowel syndrome) Enlarged thoracic aorta PSH Dr Vaqzuez Exercise / Class Metabolic Activity II 4-5 Yardwork/Stairs/Walk up hill Past Family History Family History Grandfather (Maternal) Colorectal cancer Sister Colorectal cancer Denies family history of Ovarian cancer Breast cancer Past Surgical History Surgical History Hx of right cataract extraction History of colonoscopy History of left cataract extraction (06/26/24) Hx of prior ablation treatment ~2019- venous ablation, Bilateral Lower Extremity History of breast biopsy History of laparoscopy History of hysterectomy History of cholecystectomy History of foot surgery Past Anesthesia History No Hx of Anesthesia Complications and No Family Hx of Anesthesia Complications History of PONV No Hx of PONV and No Hx of Motion Sickness Social History Smoking Status: Never smoker Do You Dip or Chew Tobacco: No Hx Alcohol Use: No alcohol intake frequency: holidays/special occasions only Hx Substance Use: No substance use type: does not use Physical Exam Vital Signs Last Vital Signs Temp 36.5 C 07/28/24 06:57 Pulse 66 07/28/24 06:57 Resp 16 07/28/24 06:57 BP 130/75 07/28/24 06:57 Pulse Ox 94 07/28/24 06:57 O2 Del Method Room Air 07/28/24 06:57 O2 Flow Rate 2 07/27/24 07:08 Constitutional + obese ENMT Mouth: no TMJ abnormality Thyromental Distance: > or= 3.5 Finger Breadths Mallampati Class: II Neck normal visual inspection and trachea midline; neck extension not limited Respiratory normal respiratory effort Auscultation: lungs clear to auscultation bilaterally Cardiovascular Rate/Rhythm: regular rate and regular rhythm Heart Sounds: no murmur Musculoskeletal Spine: normal cervical ROM Extremities: full ROM of extremities Neurologic moves all extremities Psychiatric Orientation: alert and oriented x 3 Testing Laboratory Results 07/28/24 05:34 07/28/24 05:34
--- NOTE | 2024-07-28 08:55 | Hospitalist Progress Note ---
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 Pain management consulted, Dr Cortes --> Discussed this morning and planning for cervical epideral steroid injection this morning in OR under sedation Pain control: tylenol, gabapentin 600mg TID, tramadol 50mg q8h prn, lidoderm patch, baclofen 5mg BID prn spams Bowel regimen added - monitor for issues Rec PT post-dc, monitor response to injection #Asthma/COPD/bronchiectasis- stable; chronic 2L O2 via NC HS Continue home meds #Anxiety- continue home buspirone. Recs to discuss w/ PCP in follow up about conversion to Cymbalta for additional pain control per pain management #Rosacea conjunctivitis -- continue daily doxycycline #Paroxysmal A-fib - not anticoagulated d/t low [id number] score and remains on flecainide/verapamil, aspirin placed on hold for injection and will need to touch base on timing to resume #GERD- continue famotidine and omeprazole #Hypothyroidism - continue home levothyroxine 200mcg daily. added tsh for comparison w/ neuropathy to ensure no adj required DVT proph: Lovenox placed on hold (last dose 07/27 AM) for epidural spinal injection w/ pain management Dispo: continued inpatient stay for injection w/ pain management today Admission and Anticipated Discharge Date Admission Date: July 27, 2024 Supervising Physician Co-Signing Physician Notes The patient was not seen by me. The chart was reviewed. Case discussed with SUSIE Elizabeth. Agree with assessment and plan Subjective Eval this morning, tearful. Uncomfortable to the right arm, numbness/tingling, progressive. Seen by pain management, discussed adding muscle relaxers. Was going to give IV ativan while awaiting OR but is next case and Dr Cortes reporting will be given sedation/made comfortable and is next case. Slow BS but soft, bowel regimen continued and will add senna. SUpport provided. Physical Exam 2 Physical Exam: General: 63yo female sitting up in bed, NAD but tearful, crying during exam at times due to anxiousness over injection and being on her belly as well as pain to her right arm into her hand Head atraumatic, normocephalic, mmm, trachea mildine Resp: even/unlabored, no distress/cough/tachypnea, on room air CV: RRR, no significant m/r/g GI: +BS (slightly slow) but soft/no overt tenderness/guarding MSK/Neuro: RUE 2/ decreased strength globally (poor effort), unable to raise above shoulder due to pain, numbness/tingling in C5-C6 distribution, +tenderness cervical spine/paraspinal muscles b/l le strength equal Psych: AOx3, cooperative but tearful/crying/anxious at time Results & Data Results & Data Vital Signs (Past 12 Hours) Vital Signs Temp Pulse Resp BP Pulse Ox O2 Del Method 07/28/24 06:57 36.5 C 66 16 130/75 94 Room Air Laboratory Results 07/28/24 05:34 07/28/24 05:34 Diagnostic Findings Cervical Spine MRI 07/27/24 01:44 MR cervical spine wo con HISTORY: 63 years-old Female Cervical radiculopathy, severe RUE pain subacute to chronic neck pain with right upper family radicular symptoms COMPARISON: Cervical spine x-rays 07/26/2024 TECHNIQUE: Multiplanar multisequence MRI of the cervical spine was obtained without IV contrast FINDINGS: Study is mildly motion degraded. There is normal signal within the imaged posterior fossa structures, brainstem, cervical and imaged upper thoracic spinal cord. No acute fracture, subluxation, endplate erosion or marrow replacing process. No epidural or paraspinal fluid collections. C2-C3: Mild intervertebral disc space narrowing with uncovertebral hypertrophy and small posterior annular disc bulge. Qofl-ge-bquhsmwx facet arthrosis. No central canal or foraminal narrowing. C3-C4: Mild intervertebral disc space narrowing with uncovertebral hypertrophy and small posterior annular disc bulge. Cenk-pc-lpdvxaql facet arthrosis. No central canal or foraminal narrowing. C4-C5: Mild intervertebral disc space narrowing with uncovertebral hypertrophy and small circumferential annular disc bulge. Nlhb-lu-dcsrfwoy facet arthrosis. Central canal and left neural foramen are patent. Mild right foraminal narrowing. C5-C6: Mild intervertebral disc space narrowing with uncovertebral hypertrophy and mild to moderate facet arthrosis. Small posterior disc osteophyte complex which is eccentric to the right neural foramen. Central canal and left neural foramen appear patent. Moderate right foraminal narrowing. C6-C7: Mild intervertebral disc space narrowing. Uncovertebral hypertrophy with small posterior annular disc bulge. Rxuh-gi-wmpbfcfn facet arthrosis. No central canal or foraminal narrowing. C7-T1: Mild to moderate facet arthrosis. No central canal or foraminal narrowing. IMPRESSION: 1. Motion degraded exam with suboptimal evaluation of the central canal and neural foramen. 2. Discogenic degeneration with facet arthrosis as above. 3. There is suggestion of moderate right-sided foraminal narrowing at C5-C6. 4. No high-grade central canal or foraminal narrowing identified. ACT 112: Negative or not required by law. The above report was generated using voice recognition software. It may contain grammatical, syntax or spelling errors. Electronically signed by: Jalen Willard M.D. 07/27/2024 1:07 PM PG Care Time/CCT Total # of Minutes Spent Total Time Spent with Patient: Total time spent is greater than 50% in coordination of care (as documented) at patient's floor/unit and/or counseling patient: Coding Level of Care Code 36107 SUB INP/OBS CARE 3/50MIN Diagnoses Cervical radiculopathy, acute M54.12
[2024-07-28 10:11] LABS: Thyroid Stimulating Hormone 0.196 uIu/ml (0.300-4.500)
--- NOTE | 2024-07-28 10:23 | Operative Report ---
Post Operative Report Pre & Post Diagnosis Cervical disc protrusion, cervical radiculopathy Operation Date: 07/28/24 10:00 <No data on this case meets the specified criteria> I identified the patient and participated in the time-out.: Yes Procedure C7-T1 cervical epidural steroid injection Operation Date: 07/28/24 10:00 <No data on this case meets the specified criteria> Surgeon Rossi Cortes, DO Filling Hand None Estimated Blood Loss 0 Findings Consistent with Post-Op Diagnosis Fluids Per anesthetic record Specimens None Drains None Anesthesia Type MAC Complications none Disposition Accompanied Patient To Recovery: No Disposition: Recovery Room Indications Cervical radiculopathy Description of Procedure CERVICAL EPIDURAL STEROID INJECTION INTERLAMINAR Diagnosis: Cervical radiculitis, Inter-vertebral disc disease, cervical disc protrusion Procedure performed by: Dr. Rossi Cortes Level injected: C7-T1 Anesthesia: local Material forwarded to lab: none Complications: None Medications used: 1% Lidocaine 3ml PF 0.9% NSS 1ml Depomedrol 1ml (80mg/ml) Isovue 300 1ml Prior to starting, the Patients diagnosis, allergies, medication list, and the procedure were reviewed with the patient in detail. Potential risks including infection, bleeding, nerve injury, reaction to any one of the medications used for the procedure, persistent pain at the injection site and persistent symptoms discussed with the patient. Diagnostic and therapeutic nature of the procedure also discussed with the patient. Alternatives to the specific procedure was also discussed with the patient. Patient's questions were answered. Patient gives informed consent to proceed. The patient was brought to the fluoroscopy room and placed in prone position on the table. Immediately prior to starting the procedure, a time out was conducted with the staff and the patient where the Patient was identified, proposed procedure was verified, consent was reviewed and the proper site for the planned procedure was identified. Fluoroscopy was utilized in performing the procedure to assist in placement of the needle, to evaluate the final position on the needle prior to injection and to avoid intravascular injection. Monitors used included intermittent blood pressure with an automated device, continuous pulse oximetry and level of consciousness. Patient was given moderate intravenous sedation for periprocedure anxiolysis and constant verbal contact was maintained throughout the procedure. Please see anesthetic record for further details. The cervico-thoracic spine area was prepped with DuraPrep and Betadine. After the application, three minutes time elapsed prior to the start of the procedure to reduce risk of fire. Sterile drapes were applied. 1% lidocaine was infiltrated in the skin and subcutaneous tissues using a 27 gauge needle. A 22 gauge, 3.5 inch Tuohy needle was then inserted through the anesthetized area and advanced under bi planar fluoroscopy through the ligamentum flavum into the epidural space via midline approach with loss of resistance to saline technique. Upon entering the epidural space the patient did not experience pain or paresthesia. Bevel of the needle was directed in the cephalad direction. 6 inch micro bore tubing was attached to the needle and aspiration via the needle demonstrated no CSF or blood. In a lateral view, nonionic Isovue contrast was injected via the needle under live fluoroscopy. The contrast was noted to be in the dorsal epidural space. No subarachnoid spread of contrast was noted. Finally, an AP view was then checked and additional contrast was injected under live fluoroscopy. Neither subdural or subarachnoid spread nor intravascular uptake was noted on plain fluoroscopy. No vascular uptake was noted. Next, a solution containing depomedrol and preservative free normal saline (to flush needle) was injected via the epidural needle gradually. Patient did not experience any pain, paresthesia or discomfort throughout the injection period. Needle was withdrawn. Adequate hemostasis was noted. A sterile Band-Aid was applied at the injection site. Patient was then logrolled back on her hospital bed. Patient was deemed to be phase 2 criteria. She was escorted back to her hospital room and report was given. Any specific questions were answered. Follow-up appointment will be scheduled. I attest to the content of the Intraoperative Record and any orders documented therein. Any exceptions are noted below.
--- NOTE | 2024-07-28 10:23 | Anesthesiology Progress Note ---
Date of Service July 28, 2024 Anesthesia Post Procedure Vital Signs Vital Signs: Temp Pulse Resp BP Pulse Ox O2 Del Method 07/28/24 06:57 36.5 C 66 16 130/75 94 Room Air 07/27/24 20:05 Room Air 07/27/24 19:23 36.5 C 69 16 112/72 94 Room Air 07/27/24 14:29 36.7 C 69 17 142/74 H 92 Room Air Pain Intensity Right Arm: Pain Intensity: 8 Neck: Pain Intensity: 8 Transfer of Care Handoff Completed per policy Notes Mental Status: alert / awake / arousable Patient Amnestic to Procedure: Yes Nausea / Vomiting: adequately controlled Pain: adequately controlled Airway Patency, RR, SpO2: stable & adequate BP & HR: stable & adequate Hydration State: stable & adequate Anesthetic Complications: no major complications apparent and Pt Satisfied with anesthetic care
[2024-07-28] MEDS: LIDOCAINE 1% LOCAL 20 ML VIAL ONE (10:37)
[2024-07-28] MEDS: methylPREDNISolone acetate 80 MG/ML VIAL ONE (10:38)
[2024-07-28] MEDS: SODIUM CHLORIDE 0.9% PF INJ 10 ML VIAL ONE (10:39)
[2024-07-28] MEDS: IOPAMIDOL INJ 61% 15 ML VIAL INJ ONE (10:44)
[2024-07-28] MEDS: predniSONE 50 MG TAB PO SCH (11:49)
[2024-07-28] MEDS: BACLOFEN 10 MG TAB PO SCH (11:54)
[2024-07-28] MEDS: SENNOSIDES 8.8 MG/5 ML UDC PO SCH (11:55)
[2024-07-28] MEDS: traMADol HCL 50 MG TABLET PO PRN (13:38)
[2024-07-28] MEDS: LEVOTHYROXINE SODIUM 88 MCG TABLET PO SCH (19:50)
[2024-07-28] MEDS: LEVOTHYROXINE SODIUM 100 MCG TABLET PO SCH (19:50)
[2024-07-29] MEDS: MoRPHine SULFATE 2 MG/ML CARP IV STA (05:45)
[2024-07-29 07:09] LABS: Calcium 9.1 mg/dl (8.6-10.3); Creatinine Clr Calc Pharmacy 130.9 ml/min; Potassium 3.9 mmol/L (3.5-5.1)
--- NOTE | 2024-07-29 08:46 | Hospitalist Progress Note ---
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 of arrival; radiates from the shoulder down to elbow, wrist, and back of hand - reportedly had reactions to opioids in the past in 2013 - shoulder XR without fracture or dislocation; cervical spine XR showing moderately severe C5-C6 cervical foraminal stenosis - Pain management following- cervical epidural steroid injection on 07/28 - Pain regimen: Tylenol, gabapentin 600mg TID, tramadol 50mg q8h prn, lidoderm patch, baclofen 5mg BID prn spams - Consider conversion from BuSpar to cymbalta in outpatient - PT post discharge - Bowel regimen #Asthma/COPD/bronchiectasis - stable; chronic 2L O2 via NC HS - continue home meds #Anxiety - continue home buspirone #Rosacea conjunctivitis - continue daily doxycycline #Paroxysmal A-fib - not anticoagulated d/t low [id number] score - continue home flecainide and verapamil #GERD - continue famotidine and omeprazole #Hypothyroidism - continue home levothyroxine Dispo: med/surg VTE ppx: lovenox Code: full Admission and Anticipated Discharge Date Admission Date: July 28, 2024 Supervising Physician Co-Signing Physician Notes I personally examined the patient and verified all monique points of history and exam, discussed case, and agree with decision making with Dr Rohan Sanchez Pain under better control, but does note that she feels fairly groggy on medications. Vitals noted, in general she is awake and alert pleasant slightly sedate but able to interact, wakes up more as conversation progresses. Mostly in no distress although once or twice she does seem to have a jolt of pain down her arm. HEENT normocephalic atraumatic mucous membranes moist. Breathing unlabored no accessory muscle use good effort. Skin without rashes pallor or icterus. Neuro without focal deficits. Cervical radiculopathy with intractable painnow improving. Continue multimodal management. Hopefully home soon. Otherwise as above. Subjective Seen this am. States the epidural injection did took the edge off but still have significant pain. Got morphine in the morning. Last BM was a couple of days ago. Review of Systems Review of Systems: as per hpi Physical Exam Constitutional: WD/WN, vitals as above Respiratory: normal respiratory effort, lungs clear to auscultation Cardiovascular: RRR, no murmur, no edema Gastrointestinal (Abdomen): normal bowel sounds, soft, nontender, no hepatosplenomegaly Results & Data Results & Data Vital Signs (Past 12 Hours) Vital Signs Temp Pulse Resp BP Pulse Ox O2 Del Method 07/29/24 07:20 36.4 C L 56 L 18 112/74 90 Room Air Resident Activity Tracking Resident Involvement: Resident Care Provided Care Provided: Adult Hospital Medicine
--- NOTE | 2024-07-29 12:01 | Pain Management Progress Note ---
Date of Service July 29, 2024 Assessment & Plan (1) Cervical radiculopathy, acute: (2) Protrusion of cervical intervertebral disc: Plan 1. Patient appears to have benefit from a combination of cervical epidural steroid injection, increased gabapentin, and tramadol at this time. Recommend continuation of current medications 2. Recommend formal physical therapy postdischarge. 3. Recommend consideration of conversion from BuSpar to Cymbalta to augment descending pain regulatory pathways. Patient should discuss this as an outpatient with her primary care physician. 4. Pain management will sign off at this time. The patient was reminded that epidural steroid injections can take 10 to 14 days for maximal effect. Our office will call her to arrange outpatient follow-up. Admission and Anticipated Discharge Date Admission Date: July 27, 2024 Subjective Patient reports combination of gabapentin and tramadol as well as epidural steroid injections seem to be diminishing her pain. She is unable to quantitate but was able to ambulate around her room moved from bed to chair is smiling, eating lunch and not tearful today on exam. She is using her right arm to prepare her lunch tray. She tolerated her tramadol well without significant side effects. No other constitutional complaints. Right arm pain rated 3-8 out of 10 currently 4 out of 10 Physical Exam Physical Exam: Constitutional: Well-developed, well-nourished, healthy-appearing, obese and de conditioned Psych: Awake, alert, and oriented 3 with tearful affect, often crying during examination. Recent memory appears grossly intact Eyes: Pupils are equally round and reactive to light with normal size pupils, eyelids appear normal Ear, nose, mouth, and throat: Moist nasal and oral membranes, lips and tongues appear normal, no external ear abnormalities are noted Neck: The trachea is midline without deviation and no thyromegaly is noted Respiratory: Normal respiratory effort without distress, no audible wheezes or rhonchi CV: Normal S1 and S2, warm distal extremity Chest: Deferred Musculoskeletal: Head is normocephalic and atraumatic, gait not observed but patient is able to easily move in the bed during examination Cervical: Lordotic curve: Normal Range of motion is decreased with extension, acceptable flexion, side-bending, rotation Tenderness: Mildly tender over the axial midline Strength: Strength is equal bilaterally with 5 out of 5 strength left upper ex tremity, 4+ out of 5 globally right upper extremity though patient has poor effort Sensation of upper extremities: Intact bilaterally Myofascial spasm: Mild to moderate cervical paraspinal musculature and trapezius spasm. A few scattered discrete trigger points noted Injection site is well-healed no erythema fluctuance or drainage Skin: No rashes, lesions, ulcers, or induration noted Neuro: No nystagmus noted, the tongue is midline, the patient is able to rotate their head bilaterally : Deferred Results (Pain Clinic) Diagnostic Review MRI: non enhanced, reports reviewed, images reviewed and findings discussed with patient MRI Findings: 07/27/24 MR cervical spine wo con HISTORY: 63 years-old Female Cervical radiculopathy, severe RUE pain subacute to chronic neck pain with right upper family radicular symptoms COMPARISON: Cervical spine x-rays 07/26/2024 TECHNIQUE: Multiplanar multisequence MRI of the cervical spine was obtained without IV contrast FINDINGS: Study is mildly motion degraded. There is normal signal within the imaged posterior fossa structures, brainstem, cervical and imaged upper thoracic spinal cord. No acute fracture, subluxation, endplate erosion or marrow replacing process. No epidural or paraspinal fluid collections. C2-C3: Mild intervertebral disc space narrowing with uncovertebral hypertrophy and small posterior annular disc bulge. Pswr-qr-cpsdhjyd facet arthrosis. No central canal or foraminal narrowing. C3-C4: Mild intervertebral disc space narrowing with uncovertebral hypertrophy and small posterior annular disc bulge. Ojys-gf-czfjbmsu facet arthrosis. No central canal or foraminal narrowing. C4-C5: Mild intervertebral disc space narrowing with uncovertebral hypertrophy and small circumferential annular disc bulge. Clss-hq-wfxpssyu facet arthrosis. Central canal and left neural foramen are patent. Mild right foraminal narrowing. C5-C6: Mild intervertebral disc space narrowing with uncovertebral hypertrophy and mild to moderate facet arthrosis. Small posterior disc osteophyte complex which is eccentric to the right neural foramen. Central canal and left neural foramen appear patent. Moderate right foraminal narrowing. C6-C7: Mild intervertebral disc space narrowing. Uncovertebral hypertrophy with small posterior annular disc bulge. Imns-cr-bqlonxhz facet arthrosis. No central canal or foraminal narrowing. C7-T1: Mild to moderate facet arthrosis. No central canal or foraminal narrowing. IMPRESSION: 1. Motion degraded exam with suboptimal evaluation of the central canal and neural foramen. 2. Discogenic degeneration with facet arthrosis as above. 3. There is suggestion of moderate right-sided foraminal narrowing at C5-C6. 4. No high-grade central canal or foraminal narrowing identified. Radiology: reports reviewed and findings discussed with patient Radiology Findings: 07/26/2024 Exam(s): XR SHOULDER, 2+ views EXAM: XR Right Shoulder Complete, 2 or More Views CLINICAL HISTORY: Reason for exam: RIGHT SHOULDER PAIN RADIATING DOWN RIGHT ARM. TECHNIQUE: Two or more views of the right shoulder. COMPARISON: None FINDINGS: Bones/joints: No displaced fracture or dislocation identified. Mild degenerative changes of the right acromio clavicular joint and glenohumeral joint. No bony lesion. Soft tissues: Normal. No radiopaque foreign body identified. IMPRESSION: No displaced fracture or dislocation identified. 07/26/2024 EXAM: XR Cervical Spine, 2 or 3 Views CLINICAL HISTORY: Reason for exam: RIGHT SHOULDER PAIN RADIATING DOWN RIGHT ARM. TECHNIQUE: Frontal and lateral views of the cervical spine. COMPARISON: No relevant prior studies available. FINDINGS: Vertebrae: Unremarkable. No definite fracture. Normal alignment. There is a moderately severe right C5-6 neural foraminal stenosis. There is diffuse osteopenia throughout the visualized bones. Disc spaces: No acute findings. No significant narrowing. Soft tissues: Unremarkable. IMPRESSION: No evidence of acute cervical spine pathology. There is a moderately severe right C5-6 neural foraminal stenosis. Recommend MRI of the cervical spine for further evaluation.
--- NOTE | 2024-07-29 18:18 | Billing Data ---
Date of Service July 29, 2024 Coding Level of Care Code 82917 SUB INP/OBS CARE
[2024-07-29] MEDS: LEVOTHYROXINE SODIUM 88 MCG TABLET PO SCH (21:09)
[2024-07-29] MEDS: LEVOTHYROXINE SODIUM 100 MCG TABLET PO SCH (21:09)
[2024-07-29] MEDS: ASPIRIN 81 MG ECTAB PO SCH (21:11)
[2024-07-29 21:25] VITALS: RESP 16; O2SAT 92
[2024-07-30 06:32] LABS: Basophils # (auto) 0.04 K/uL (0.00-0.20); Basophils % (auto) 0.3 %; Eosinophils # (auto) 0.04 K/uL (0.00-0.50); Eosinophils % (auto) 0.3 %; Hematocrit (blood only) 40.5 % (37.0-47.0); Hemoglobin 12.8 g/dl (12.0-16.0); Immature Granulocytes # (auto) 0.11 K/uL (0.01-0.20); Immature Granulocytes % (auto) 0.9 %; Lymphocytes # (auto) 3.62 K/uL (1.20-3.40); Lymphocytes % (auto) 28.9 %; Mean Corpuscular Hemoglobin 28.3 pg (25.0-34.0); Mean Corpuscular Hgb Conc 31.6 g/dL (32.0-36.0); Mean Corpuscular Volume 89.6 fL (80.0-100.0); Mean Platelet Volume 10.4 fL (9.4-12.4); Monocytes # (auto) 1.01 K/uL (0.11-0.59); Monocytes % (auto) 8.1 %; Neutrophils # (auto) 7.72 K/uL (1.40-6.50); Neutrophils % (auto) 61.5 %; Platelet Count 229 K/uL (130-400); RDW Coefficient of Variation 13.6 % (11.5-14.5); RDW Standard Deviation 44.4 fL (36.4-46.3); Red Blood Count 4.52 M/uL (4.20-5.40); White Blood Count 12.54 K/ul (4.8-10.8)
[2024-07-30 06:58] LABS: BUN Creatinine Ratio 26.4 (10-20); Creatinine Clr Calc Pharmacy 96.3 ml/min; Potassium 3.9 mmol/L (3.5-5.1)
[2024-07-30 07:31] VITALS: BP 151/97; PULSE 59; TEMP 98.1
[2024-07-30] MEDS: POLYETHYLENE (MIRALAX) 17 GM PACK PO SCH (08:04)
--- NOTE | 2024-07-30 08:35 | Hospitalist Progress Note ---
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; radiates from the shoulder down to elbow, wrist, and back of hand - reportedly had reactions to opioids in the past in 2012 - shoulder XR without fracture or dislocation; cervical spine XR showing moderately severe C5-C6 cervical foraminal stenosis - Pain management following- cervical epidural steroid injection on 07/28 - Pain regimen: Tylenol, gabapentin 600mg TID, tramadol 50mg q8h prn, lidoderm patch, baclofen 5mg BID prn spams - Consider conversion from BuSpar to cymbalta in outpatient - PT post discharge - Bowel regimen #Asthma/COPD/bronchiectasis - stable; chronic 2L O2 via NC HS - continue home meds #Anxiety - continue home buspirone #Rosacea conjunctivitis - continue daily doxycycline #Paroxysmal A-fib - not anticoagulated d/t low [id number] score - continue home flecainide and verapamil #GERD - continue famotidine and omeprazole #Hypothyroidism - continue home levothyroxine Dispo: med/surg VTE ppx: lovenox Code: full Admission and Anticipated Discharge Date Admission Date: July 27, 2024 Subjective Seen this am. Alert and oriented. Had a good sleep. Pain slowly improving Review of Systems Review of Systems: as per hpi Physical Exam Constitutional: WD/WN, vitals as above Respiratory: normal respiratory effort, lungs clear to auscultation Cardiovascular: RRR, no murmur, no edema Gastrointestinal (Abdomen): normal bowel sounds, soft, nontender, no hepatosplenomegaly Results & Data Results & Data Vital Signs (Past 12 Hours) Vital Signs Temp Pulse Resp BP BP Pulse Ox O2 Del Method 07/30/24 07:30 36.7 C 59 L 16 151/97 H 92 Room Air 07/29/24 21:24 36.6 C 69 16 151/104 H 92 Room Air 07/29/24 21:12 Room Air
--- NOTE | 2024-07-30 11:04 | Discharge Summary ---
Date of Service July 30, 2024 Admission HPI Per Admitting Provider 63-year-old female PMHx asthma, bronchiectasis, hypothyroidism, paroxysmal A-fib not anticoagulated (low [id number] score), GERD, and rosacea conjunctivitis presenting for severe R arm pain for the past 6 weeks, worsening the day [employer]. States that approximately 4 to 6 weeks ago she started to notice R arm pain that initiated in the R shoulder over the course of the next few weeks radiating to her elbow and wrist, into the 2nd and 3rd fingers. Describes the pain as severe and constant, rating it 10 out of 10 at all times. Normally the patient is able to alleviate the pain at home with Advil and rest, but the night [employer], patient had a sudden worsening of the pain and was unable to achieve pain control. Patient took 4 Advil prior to arriving. Notes that this is a constant intense pain that is aching and occasionally will come in flares of worsening severity that would last a few seconds and then dull down. Today, the pain continued at the same intensity. States that at this present time, the lateral elbow is the most severe, and when she turns her palm to face up, the pain is worse. She does report that before going to bed last night, her neck was "bothering her" but she does not recall any injuries or movements that would have worsened the symptoms. Reports some weakness in the hand, stating that she has difficulties gripping things. She has never had something like this happen before. Denying chest pain, shortness of breath, palpitations. Patient has many drug allergies and adverse reactions per a 2013 surgery which multiple prior medications were trialed and she resulted in adverse reactions to the all of them. At the present, she did have some abdominal pain but no N/V. Having normal bowel movements. Of note, patient states that approximately 2 weeks ago she noticed that there were rings on her R hand were becoming tarnished which was abnormal for her as she had worn the same rings for extended periods of time without these changes. Reports she was told her "body is acidic" and that is why the rings were becoming tarnished. Overall denying D/C, LUTS, fever/chills, URI symptoms, numbness/tingling, syncope, weakness, or additional symptoms. ED evaluation reveals leukocytosis 11.40, stable H&H; CMP creatinine 0.58, BUN/creatinine ratio 22.4, glucose 125; C-spine XR and shoulder XR pending official read.; Provided with ondansetron 4 mg IV, ketorolac 30 mg IV, hydromo rphone 0.5 mg IV, fentanyl citrate 50 mcg IV x 2, diazepam 5 mg IV, and dexamethasone 10 mg IV in ED. Please see Dr. Vargas's attestation for adjustments/additions to treatment plan. Principal Diagnosis Cervical radiculopathy Discharge Exam Constitutional well developed and well nourished ENMT external ear and nose normal, oropharynx normal Respiratory normal respiratory effort, lungs clear to auscultation Cardiovascular RRR, no murmur, no edema Gastrointestinal (Abdomen) normal bowel sounds, soft, nontender, no hepatosplenomegaly Discharge Data Allergies Allergy/AdvReac Type Severity Reaction Status Date / Time adhesive Allergy Intermediate Rash Verified 07/10/24 10:45 NSAIDS (Non-Steroidal AdvReac Severe GI Bleed Verified 07/10/24 10:45 Anti-Inflamma chlorhexidine AdvReac Intermediate Itching Verified 07/10/24 10:45 and Burning at site of use codeine AdvReac Mild Severe Verified 07/27/24 01:53 Stomach Pain, Cold, Clammy Consultations 07/27/24 00:12 ED Decision to Admit Stat 07/27/24 15:40 Consult Pain Management Routine Procedures Performed Operation Date: 07/28/24 10:00 Actual Procedures p Epidural Steriod Injection(Not Applicable) - Rossi Cortes DO Ordered Studies 07/27/24 01:44 MRI Cervical [MR cervical spine wo con] Routine 07/28/24 [place] fluoro for pain procedure Routine Hospital Course (1) Cervical radiculopathy, acute: Plan Pt is a 63 yo female with PMH of asthma, bronchiectasis, hypothyroidism, paroxysmal A-fib not anticoagulated (low [id number] score), GERD, and rosacea conjunctivitis presenting for severe right arm pain for the past 6 weeks, worsening the day [employer]. #Right arm pain secondary to suspected cervical radiculopathy - severe, 10/10 pain initially starting 6 weeks [employer] and worsening the night of arrival; radiates from the shoulder down to elbow, wrist, and back of hand - shoulder XR without fracture or dislocation; cervical spine XR showing moderately severe C5-C6 cervical foraminal stenosis - Pain management following- cervical epidural steroid injection on 07/28 - Pain regimen: Tylenol, gabapentin 600mg TID, tramadol 50mg q8h prn, lidoderm patch, baclofen 5mg BID prn spams. Toradol po prn - Follow up outpatient with pain management clinic - Patient want to avoid opioids - Consider conversion from BuSpar to cymbalta in outpatient - PT post discharge - Continue Bowel regimen #Asthma/COPD/bronchiectasis - stable; chronic 2L O2 via NC HS - continue home meds #Anxiety - continue home buspirone #Rosacea conjunctivitis - continue daily doxycycline #Paroxysmal A-fib - not anticoagulated d/t low [id number] score - continue home flecainide and verapamil #GERD - continue famotidine and omeprazole #Hypothyroidism - continue home levothyroxine Total Time Total Time Spent Total Time Spent (In Minutes): <30 Discharge Plan Discharge Items Reason For Visit: R ARM PAIN Discharge Diagnosis: Cervical radiculopathy Condition on Discharge: Fair Activity: Per Instructions section Non-emergency contact: Primary Care Provider and Pain Management Call non-emergency contact if: you have any medication questions and your symptoms worsen Follow-up/Referrals: Teddy Tsai DO [Primary Care Provider] - 08/08/24 12:45 pm Diet: Regular Addtl Attending Provider Instructions: Hospitalized for RIGHT arm pain concerning for cervical spine issue. MRI was obtained and noted significant stenosis at C5-C6 and pain management was consulted and underwent epidural injection for added pain relief/inflammation. Pain management recommending therapy post-discharge. Have prescribed gabapentin and baclofen for nerve/muscle spasm pain. Baclofen can be continued twice daily and gabapentin three times daily as discussed at discharge. Please no driving on these medications as they can make you sleepy. as the injection continues to help with the pain more, the goal over the coming weeks will be to reduce the gabapentin and baclofen to as little as possible (and stop them entirely if your pain levels allow for this) To discuss possible transition from buspar to cymbalta for mood/pain control in follow up with primary care. Pending Studies at Discharge: No Stand-Alone Forms: My [employer], Smoking Cessation Medications and DC Order Prescriptions: New ketorolac 10 mg Tablet 15 mg PO Q6H PRN (Reason: pain) Qty: 20 0RF baclofen 10 mg Tablet 5 mg PO BID 30 Days Qty: 30 0RF gabapentin 300 mg Capsule 600 mg PO TID 30 Days Qty: 180 0RF sennosides [senna] 8.8 mg/5 mL Syrup 8.8 mg PO QAM Qty: 120 0RF Continued albuterol sulfate 2.5 mg /3 mL (0.083 %) solution for nebulization 2.5 mg INH QID PRN (Reason: shortness of breath or wheezing) Qty: 180 2RF fluticasone propion-salmeterol [Advair Diskus] 500-50 mcg/dose blister with device 1 puffs INH BID Qty: 180 3RF nystatin 100,000 unit/gram powder 1 applic topical BID PRN (Reason: irritation) 90 Days Qty: 60 3RF cholecalciferol (vitamin D3) 2,000 unit tablet 2,000 unit PO HS docusate sodium 100 mg capsule 200 mg PO HS flecainide 50 mg tablet 50 mg PO Q12H buspirone 5 mg tablet 5 mg PO BID (DME) Oxygen Home Liters Per Minute See Rx Instructions .Route Rx Instructions: As directed famotidine 20 mg tablet 20 mg PO BID clobetasol 0.05 % cream 1 applic topical DAILY PRN (Reason: Itching) 90 Days Qty: 45 4RF Rx Instructions: Use daily for acute symptoms, 2-3 times per week for maintenance phase. albuterol sulfate [Ventolin HFA] 90 mcg/actuation HFA aerosol inhaler 2 puff INHALATION Q4H PRN (Reason: Wheezing) Qty: 54 3RF omega [id number] oil [Fish Oil] 1,000 mg (120 mg-180 mg) Capsule 1 cap PO HS aspirin [Diane Low Dose Aspirin] 81 mg Tablet,Delayed Release (Dr/Ec) 162 mg PO HS Patient Comments: takes two aspirins daily to help with blood clot in legs. levothyroxine [Synthroid] 175 mcg tablet 200 mcg PO HS Rx Instructions: Pt must have name brand verapamil 40 mg tablet 20 mg PO BID doxycycline hyclate 50 mg capsule 50 mg PO QAM omeprazole 40 mg Capsule,Delayed Release(Dr/Ec) 40 mg PO BID sodium chloride 7 % solution for nebulization 4 ml NEB BIDR PRN (Reason: DIRECTED) Spiriva Respimat 2.5 mcg/actuation mist 1 puffs INH DAILY Admission Data Admit Date/Time: 07/30/24 08:15 Attending Provider: Erasmo Pederson Admit Provider: Sreekanth Vargas Primary Care Provider: Teddy Tsai Other Providers: Sreekanth Vargas; Gideon Vora; Rossi Cortes; Long Arias; Corey Martinez; Aidee Monae Other Interventions: Discharge Summary Assessment (RN) Last Done: 07/30/24 11:01 Supervising Physician Co-Signing Physician Notes I personally examined the patient and verified all monique points of history and exam, discussed case, and agree with decision making with Dr Rohan Sanchez pain control generally better. Still a little bit groggy but feels like she would be okay for home. Discussed overall game plan of continuing current medications for the next few days to few weeks depending on pain control, and then as pain control improves and the improvement from the injection continues to accumulate, hopefully being able to wean the new medications off over the coming month. Vitals noted, in general she is awake and alert NAD. no appearance of pain or discomfortno "jolt" with movements like yesterday. HEENT normocephalic atraumatic mucous membranes moist. Breathing unlabored no accessory muscle use good effort. Skin without rashes pallor or icterus. Neuro without focal deficits. Cervical radiculopathy with intractable painnow improving. Continue multimodal management. safe/stable for home. Currently home on gabapentin and baclofenbut as the injection takes better effect, the goal will be to wean both of these back over the coming weeks, and ideally discontinue. Right now appears that she will be able to avoid surgical intervention. Close and ongoing outpatient follow-up in this regard.
[2024-07-30] MEDS ORDERED: KETOROLAC TROMETHAMINE 10 MG TABLET PO PRN (13:00)
--- NOTE | 2024-07-30 15:00 | Billing Data ---
Date of Service July 30, 2024 Coding Level of Care Code 69975 IN/OBS DISCH 30 MIN/LESS
== END 2024-07-30 15:09 | disposition home or self-care (01) | DRG 552 ==
LOC: ED 20:30 → 3E 20:30 → SUATTDRO 07-27 00:32 → 3E 07-27 01:30 → SUATTDRO 07-28 10:23